=== PATIENT | female | born 1965 | race Hispanic/Latino ===

== ENCOUNTER 2024-11-21 02:55 | Inpatient (IN) | payer SELFPAY ==
[2024-11-21] VITALS (17 sets, daily range): BP systolic 152–185; BP diastolic 57–91; PULSE 90–116; RESP 16–19; TEMP 97.9–98.3; O2SAT 97–99
[~2024-11-21] VITALS: Ht 154.9 cm; Wt 54.4 kg
[2024-11-21] MEDS: hydrALAZine 20MG/ML VIAL IV ONE (03:33)
[2024-11-21 03:37] LABS: BASOPHILS # (AUTO) 0.05 K/uL (0.00-0.20); BASOPHILS % (AUTO) 0.6 % (0.0-5.0); EOSINOPHILS # (AUTO) 0.04 K/uL (0.00-0.70); EOSINOPHILS % (AUTO) 0.5 % (0.0-8.0); HEMATOCRIT 36.3 % (36-48); IMMATURE GRANULOCYTE ABSOLUTE 0.03 K/uL (0-1); LYMPHOCYTES # (AUTO) 0.9 K/uL (1.0-4.8); LYMPHOCYTES % (AUTO) 11.5 % (21.0-51.0); MEAN CORPUSCULAR HEMOGLOBIN 29.2 pg (27.0-33.0); MEAN CORPUSCULAR HGB CONC 33.3 g/dL (32.0-36.0); MEAN CORPUSCULAR VOLUME 87.7 fL (79-99); MONOCYTES # (AUTO) 0.7 K/uL (0.1-1.0); NEUTROPHILS # (AUTO) 6.4 K/uL (1.8-7.7); PLATELET COUNT (AUTO) 284 K/uL (130-400); RED BLOOD CELL COUNT(AUTO) 4.14 MIL/uL (4.00-5.50); RED CELL DISTRIBUTION WIDTH 16.4 % (11.0-15.5); WHITE BLOOD COUNT (AUTO) 8.1 K/uL (4.8-10.8)
[2024-11-21 03:50] LABS: INR 1.03 (0.85-1.15); PROTHROMBIN TIME 10.9 SEC (9.6-11.6)
[2024-11-21 03:51] LABS: PARTIAL THROMBOPLASTIN TIME 32.3 SEC (26.3-35.5)
--- NOTE | 2024-11-21 03:59 | ERN ---
ED Note History of Present Illness Stated Complaint: NEEDS DIALYSIS, SHORTNESS OF BREATH Chief Complaint: Shortness of Breath Time Seen by MD: 03:00 Dictation: This is a 59-year-old female who presented to the emergency room via EMS with severe respiratory distress. Patient has end-stage renal disease and has been on hemodialysis for the past 1 year and apparently goes to [facility] for hemodialysis once a week due to being undocumented She indicated that her hemodialysis access has been changed a month ago. She missed hemodialysis this week due to mother's day and stayed back with family members here went into severe respiratory distress and alerted EMS. No cough sputum or hemoptysis no fevers chills or rigors. Temperature 98� pulse 95 respirations 16 blood pressure 180/90 initially which went up to 210/70 and pulse oximetry 97% on 5 L O2 via nasal cannula Her chronic medical problems include hypertension and end-stage renal disease on hemodialysis Allergies: Coded Allergies: No Known Allergies (Unverified Allergy, Unknown, 11/21/24) Past Medical History Past Medical History: Hypertension, Renal Disese Additional Past Medical Hx: On hemodialysis for 1 year Surgical History: None Family History: Negative Social History: Negative History: Not Applicable RN Note Reviewed/Agreed w/PFSH: Yes Review of System Dictation Constitutional: Negative for fever,chills, and weight loss Eyes: Negative for injury, pain,redness, and discharge ENT: Negative for injury,pain or swelling Cardiovascular: Negative for chest pain, palpitations, and edema Respiratory: Positive for shortness of breath, denied cough, and wheezing, Abdomen/GI: Negative for abdominal pain, nausea, vomiting, diarrhea, and constipation Back: Negative for injury and pain : Negative for injury, bleeding and discharge MS/Extremity: Negative for injury and deformity Skin: Negative for rash, and discoloration Neuro: Negative for headache, weakness, numbness, tingling, and seizure Psych: Negative for suicide ideation, homicidal ideation, and hallucinations Initial Vital Sign VS Vital Signs Date Time Temp Pulse Resp B/P (MAP) Pulse Ox O2 Delivery O2 Flow Rate FiO2 11/21/24 02:56 98.1 95 16 180/90 99 Room Air 0 11/21/24 03:10 36 Physical Exam Dictation General: awake, alert, mildly dyspneic on 5 L O2 via nasal cannula Head/Face: Normocephalic, atraumatic Eyes: PERRL, EOMI, vision at baseline ENT: oral cavity clear, TMs clear, no signs of infection Neck: Trachea midline, supple, no nuchal rigidity Cardiovascular: RRR, normal S1/S2, No MRGs, no JVD right-sided hemodialysis catheter in place in the chest Respiratory: Bilateral coarse crackles Abdomen: Soft, non-tender, non-distended, normal bowel sounds, no guarding or rebound. Skin: Warm, dry, normal turgor, no rash MS/Extremity: Pulses equal, no cyanosis, neurovascular intact, FROM Neuro: COAx4, GCS 15, strength 5/5, CN 2-12 intact, normal cerebellar exam, normal gait, Psych: Normal behavior, mood, and affect normal Extremities-trace edema without any palpable cords, Homans sign is negative Results (Laboratory/Radiology) Laboratory/Radiology Laboratory Tests Test 11/21/24 03:18 11/21/24 03:25 Whole Blood Glucose 80 MG/DL (70-110) White Blood Count 8.1 K/uL (4.8-10.8) Red Blood Count 4.14 MIL/uL (4.00-5.50) Hemoglobin 12.1 g/dL (12.0-16.0) Hematocrit 36.3 % (36-48) Mean Corpuscular Volume 87.7 fL (79-99) Mean Corpuscular Hemoglobin 29.2 pg (27.0-33.0) Mean Corpuscular Hemoglobin Concent 33.3 g/dL (32.0-36.0) Red Cell Distribution Width 16.4 % (11.0-15.5) H Platelet Count 284 K/uL (130-400) Mean Platelet Volume 11.5 fL (7.5-10.5) H Immature Granulocyte % (Auto) 0.4 % (0-1) Neutrophils (%) (Auto) 79.0 % (40.0-77.0) H Lymphocytes (%) (Auto) 11.5 % (21.0-51.0) L Monocytes (%) (Auto) 8.0 % (3.0-13.0) Eosinophils (%) (Auto) 0.5 % (0.0-8.0) Basophils (%) (Auto) 0.6 % (0.0-5.0) Neutrophils # (Auto) 6.4 K/uL (1.8-7.7) Lymphocytes # (Auto) 0.9 K/uL (1.0-4.8) L Monocytes # (Auto) 0.7 K/uL (0.1-1.0) Eosinophils # (Auto) 0.04 K/uL (0.00-0.70) Basophils # (Auto) 0.05 K/uL (0.00-0.20) Absolute Immature Granulocyte (auto 0.03 K/uL (0-1) Nucleated Red Blood Cells 0.0 % (0.0-0.19) Prothrombin Time 10.9 SEC (9.6-11.6) Prothromb Time International Ratio 1.03 (0.85-1.15) Activated Partial Thromboplast Time 32.3 SEC (26.3-35.5) Sodium Level 139 mmol/L (136-145) Potassium Level 7.0 mmol/L (3.5-5.1) *H Chloride Level 102 mmol/L (101-111) Carbon Dioxide Level 22 mmol/L (21-32) Blood Urea Nitrogen 109 mg/dL (7-18) *H Creatinine 12.0 mg/dL (0.5-1.0) *H Glomerular Filtration Rate Calc 3 mL/min (>90) Random Glucose 89 mg/dL (70-105) Total Calcium 6.7 mg/dL (8.5-10.1) L Troponin I High Sensitivity 32 ng/L (4-50) Labs Reviewed?: Yes ED Course ED Course Orders Procedure Category Date Status Time Cbc With Differential LAB 11/21/24 Complete 03:09 Basic Metabolic Panel LAB 11/21/24 Complete 03:09 Pt And Ptt LAB 11/21/24 Complete 03:09 Troponin I High LAB 11/21/24 Complete Sensitivity 03:09 Chest 1vw RAD 11/21/24 Taken 03:09 12 Lead Ekg Tracing- EKG 11/21/24 Logged Technical 03:09 Hydralazine 20mg Inj PHA 11/21/24 Complete (Apresoline 20mg In 03:30 Calcium Gluc 1gm PHA 11/21/24 In Process (Calcium Gluc 1gm 04:00 Insulin Regular, PHA 11/21/24 Complete Human 3ml (Humulin R 04:00 Albuterol 0.083% PHA 11/21/24 In Process 2.5mg/3ml (Proventil 04:00 Dextrose 50%-Water PHA 11/21/24 Complete (D50w) 04:00 Admit Orders ADM 11/21/24 Transmitted 04:14 In-Patient Dialysis DIAL 11/21/24 Transmitted Treatment 04:17 [place] [facility] [place] 11/21/24 Transmitted Dialysis 04:17 Edm Admit Bridge Order ADM 11/21/24 Verified 04:22 Current Medications Medications (Trade) Dose Ordered Sig/Luis Route PRN Reason Start Time Stop Time Status Last Admin Dose Admin Albuterol Sulfate (Proventil 0.083% 2.5mg/3ml) 10 mg ONCE IH 11/21/24 04:00 12/21/24 03:59 11/21/24 04:11 Calcium Gluconate 1 gm/Sodium Chloride 110 ml @ 110 mls/hr ONCE ONCE IV 11/21/24 04:00 11/21/24 04:59 11/21/24 04:08 Dextrose (D50w) 50 ml ONCE ONCE IV 11/21/24 04:00 11/21/24 04:01 DC 11/21/24 04:08 Hydralazine HCl (APRESOLine 20MG INJ) 20 mg ONCE ONCE IV 11/21/24 03:30 11/21/24 03:31 DC 11/21/24 03:33 Insulin Human Regular (humuLIN R 100 UNIT/ML 3ML) 5 unit ONCE ONCE IV 11/21/24 04:00 11/21/24 04:01 DC 11/21/24 04:08 Vital Signs Date Time Temp Pulse Resp B/P (MAP) Pulse Ox O2 Delivery O2 Flow Rate FiO2 11/21/24 04:16 99 24 178/79 98 Nasal Cannula* 5 40 11/21/24 04:11 90 19 Nasal Cannula 4.0 36 11/21/24 04:11 90 19 11/21/24 03:47 98.4 93 16 191/89 96 Nasal Cannula* 5 40 11/21/24 03:10 99.0 90 22 216/119 94 Nasal Cannula* 4 36 11/21/24 02:56 98.1 95 16 180/90 99 Room Air 0 We will perform diagnostic labs, advanced imaging and administer medications according to the patient's complaint. Once the results are available, will revi ew and personally interpreted the labs to rule out any acute life-threatening emergency the trach require immediate intervention and treatment. I will then re-evaluate the patient after treatment and diagnostic exams have return to determine whether the patient requires any further testing, can safely be discharged home or need further admission to hospital for additional treatment and evaluation. Hydralazine for blood pressure control Lab called with a potassium of 7.0. Hyperkalemia protocol was initiated with calcium gluconate, albuterol, insulin plus D50. 3:47 a.m. blood pressure improved 191/89. Labs still pending 4:[address] 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 He spoke to the nurse and gave dialysis orders Remaining labs reviewed CBC is with a normal limits BNP 7 showed a BUN and creatinine of 109/12 4:20 a.m. patient will be admitted to the hospital for dialysis and further volume management Patient accepted by Ata Hopkins, mid-level provider for the hospitalist group for further management. Medical Decision Making MDM MDM: Differential diagnosis: Pulmonary edema due to hypertensive emergency, volume overload due to missing dialysis, pneumonia Rationale: Tests considered and ordered secondary to shared decision making include: labs, ECG and radiology Previous outside records reviewed: Old ER visits. Risk of complication and/or morbidity or mortality of patient management: None Medications-Per medication reconciliation Need for hospitalization: Patient does meet criteria for hospitalization. Need for emergency major/minor surgery: No There are no social concerns with this patient. Prescription drug management Prescriptions will include symptomatic care Patient's prior external medical records from other ER visits were reviewed by me as indicated. Prior testing and results from previous visits were reviewed. Prior tests were taken into account with medical decision making and resource utilization, independent historian/historians were used to obtain complete medical history. I independently interpreted the test that were performed, results were reviewed by me and considered findings on radiology if ordered. Medical management and examination interpretation discussions were had by me with other qualified healthcare professionals as indicated for the patient's care. Problem List Problem List: (1) Hypertensive emergency (2) Acute respiratory failure with hypoxia (3) Acute pulmonary edema (4) End-stage renal disease on hemodialysis DX & DISP Disposition: Inpatient Departure Impression: Primary Impression: Hypertensive emergency Additional Impressions: Acute respiratory failure with hypoxia, Acute pulmonary edema, End-stage renal disease on hemodialysis Condition: Stable Additional Instructions: Patient was informed of all the diagnostic labs and procedures conducted in the emergency room today and demonstrated understanding of the results. I personally reviewed and interpreted all the diagnostic exams performed in the ER today. The patient will be admitted to the hospital for further treatment and evaluation. Disposition-admit to facility Condition-stable/guarded Course-uncertain at this time Pain status-decreased Assessment-exam unchanged Admission Certification- I certify that the patients status is appropriate and is based on my best clinical judgment and the patient's condition as documented in the medical records Referrals: SELF,REFERRAL (PCP) ZOEY LEZAMA MD November 21, 2024 03:59
[2024-11-21] MEDS: INSULIN humuLIN R 100 UNIT/ML 3ML IV ONE (04:08)
[2024-11-21] MEDS: CALCIUM GLUC 1GM 1 GM in 0.9%NACL 100ML 100 ML IV ONE (04:08)
[2024-11-21] MEDS: DEXTROSE 50%-WATER 50 ML DISP.SYRIN IV ONE (04:08)
[2024-11-21] MEDS: ALBUTEROL 0.083% 2.5 MG/3 ML INH IH SCH (04:11)
--- NOTE | 2024-11-21 04:15 | HP ---
History of Present Illness Reason for Visit: sob Past Medical History ADDITIONAL PAST MEDICAL HISTORY: [] SOCIAL HISTORY: [] SURGICAL HISTORY: [] Review of Systems Allergies: Coded Allergies: No Known Allergies (Unverified Allergy, Unknown, 11/21/24) Exam Vital Signs Vital Signs Date Time Temp Pulse Resp B/P (MAP) Pulse Ox O2 Delivery O2 Flow Rate FiO2 11/21/24 04:11 90 19 Nasal Cannula 4.0 36 11/21/24 03:47 98.4 191/89 96 Assessment/Plan ASSESSMENT: [] PLAN: [] PARAMJIT MARC RACING DRIVER November 21, 2024 04:15
--- NOTE | 2024-11-21 05:14 | NUR ---
LALO, HD NURSE AT BEDSIDE AT THIS TIME
--- NOTE | 2024-11-21 06:22 | EKG ---
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
[2024-11-21] MEDS ORDERED: acetaMINOPHEN 325 MG TAB PO PRN (06:30)
--- NOTE | 2024-11-21 06:34 | HP ---
History of Present Illness Reason for Visit: sob History of Present Illness Ms. Ladd is a 59-year-old female that was seen and examined today on 11/23/2024. Patient states that she came to the emergency department with a chief complaint of shortness of breath. Onset was 11/20/2024 at 1:00 p.m.. Location is to lungs. Duration is on and off. Character is described as, difficulty catching my breath. Symptoms are aggravated with physical activity. There was no alleviating factors. Patient reports associated weakness with the 12 falls in the last three months. 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 Dyspnea, Edema, Lt Headedness, Other Gastrointestinal: No: Nausea, Vomiting, Abdominal Pain, Diarrhea, Constipation, Melena, Hematochezia, Other Genitourinary: No Dysuria, No Frequency, No Incontinence, No Hematuria, No Retention, No Other Musculoskeletal: No: other, neck pain, shoulder pain, arm pain, back pain, hand pain, leg pain, foot pain Skin: No Urticaria, No Rash, No Other Neurological: Weakness; No: Numbness, Incoordination, Change in speech, Confusion, Seizures, Other Allergies: Coded Allergies: No Known Allergies (Unverified Allergy, Unknown, 11/21/24) Exam Vital Signs Vital Signs Date Time Temp Pulse Resp B/P (MAP) Pulse Ox O2 Delivery O2 Flow Rate FiO2 11/21/24 05:40 98.2 109 14 156/87 99 Nasal Cannula* 5 40 General Appearance: Alert, Oriented X3, Cooperative, moderate distress HEENT: Atraumatic, EOMI Respiratory: Other (Diminished air entry to bilateral) Cardiovascular: Regular rate (Lower lobes), Regular rhythm, Normal S1, Normal S2 Abdominal: Normal bowel sounds, No tenderness Extremities: No edema, Other (Weakness to bilateral lower extremities) Skin: Other Neuro: Normal speech, Strength at 5/5 X4 ext, Sensation intact, Cranial nerves 3-12 NL Psych/Mental Status: Mental status NL, Mood NL, Thoughts/Content NL Assessment/Plan ASSESSMENT: [ Severe hyperkalemia, POA ESRD on HD, POA Diabetes mellitius type2 Hypertension Weakness and deconditioning] PLAN: [ Admit patient to intensive care unit as inpatient status. Patient received hyperkalemia cocktail, calcium gluconate 1 g, D50 25 g, regular insulin 5 units, albuterol nebulized 10 mg. Repeat potassium at 9:00 a.m.. Consider administering Lokelma patient continues with the elevated potassium Consult Nephrology Service Monitor intake and output every shift Weight patient daily 1500 mL daily fluid restriction Check glucometer a.c. and HS Humulin R sliding scale Check hemoglobin A1c in a.m. One thousand eight hundred ADA diet Consider resuming home medications once they have been reconciled For now, Hydralazine 10 mg IV every 4 hours for systolic blood pressure greater than 160 mmHg Physical therapy for evaluation and treatment GI prophylaxis, Protonix DVT prophylaxis, heparin Critical Care Time: I spent ____ 51 __ minutes of critical care time with the patient. I reviewed lab work, change the patient's medication, and coordinated protocol in the event of tachycardia or desaturation. The patient status remains unchanged ADVANCED CARE PLANNING 1. Which of the following were discussed? Hospice Care - Yes Therapeutic options yes Advance Directives - Yes -patient states she does not have any advance directi ves in place at this time, however her daughter can make decisions for her if she becomes unable. Other discussions - patient wishes to remain a full code at this time 2. Discussed with who? Patient 3. Voluntary nature of this service was explained to the patient? Yes 4. Amount of time spent - ___16_ minutes ___ 5. Reviewed by Physician? (if this service was performed by NPP) Yes This document was generated in part using voice recognition software, occasional wrong word or sound alike substitutions may have occurred due to the inherent limitations of voice recognition software. Read the chart carefully and recognize using context, where the substitutions have occurred. Although every effort was made to edit the content, encyclopedia research worker and typing errors may occur ATTESTATION BY PHYSICIAN I have seen and examined the patient. I reviewed the documentation, medical decision making, and treatment plan as noted by the mid-level provider above. I agree with the findings and plan of care.] PARAMJIT MARC [facility] November 21, 2024 06:34
--- NOTE | 2024-11-21 07:18 | NUR ---
Patient does not remember her home medications. Stated she will ask her daughter.
[2024-11-21] MEDS: INSULIN humuLIN R 100 UNIT/ML 3ML SQ SCH (07:29)
[2024-11-21] MEDS: HEParin 5,000 UNIT VIAL IRRIG ONE (08:29)
[2024-11-21] MEDS: HEParin 5,000 UNIT VIAL SQ SCH (08:30)
--- NOTE | 2024-11-21 08:31 | NUR ---
Spoke to patients daughter, she does not know what medications patient takes at home.
[2024-11-21] MEDS: PANTOPrazole 40 MG TAB DR PO SCH (08:36)
[2024-11-21] MEDS: hydrALAZine 20MG/ML VIAL IV PRN (08:37)
--- NOTE | 2024-11-21 08:37 | NUR ---
dialysis done. 3.2 liters in 3 hours
--- NOTE | 2024-11-21 08:37 | NUR ---
Blood pressure 195/94 mmHg. Gave patient hydralazine 10mg IVP.
--- NOTE | 2024-11-21 09:05 | NUR ---
DR. MOSS SAW PATIENT.
[2024-11-21 09:07] LABS: HEMOGLOBIN A1C 5.4 % (4.0-6.0)
--- NOTE | 2024-11-21 09:12 | NUR ---
CALLED DR. YEH, NOTIFY HIM ABOUT DR. MOSS VISIT AND WHAT WAS SAID. (VIEW ORDERS)
[2024-11-21] MEDS: amLODIPine 5 MG TAB PO ONE (09:14)
[2024-11-21] MEDS: HEParin 5,000 UNIT VIAL IRRIG SCH (09:24)
--- NOTE | 2024-11-21 09:37 | HMCIMG ---
Exam Type: CHEST 1VW Clinical Information: SOB Comparison: None Findings: Right permacath line is noted with tip at the distal superior vena caval level. Ill-defined infiltrates of both lungs are seen consistent with bilateral pneumonia. The heart is large in size. The bony and soft tissue structures show no worrisome pathology. IMPRESSION: Findings consistent with pneumonia. Cardiomegaly. Follow-up is advised.
--- NOTE | 2024-11-21 09:39 | NUR ---
DCP: HOME Pt currently resides with her dgt Vida Hopkins [phone] in their home. Pt denies any insecurities with food, correction, and/or utilities. Pt does not have any DME, home health, or provider services. Pt goes to dialysis in once a week on for 3 hrs. Pt's PCP is in [place] and pt gets any RX in [place]. At [place] pt will go home with dgt and she will assist with transportation. Addendum: 11/21/24 at 0942 by TERRELL SAAVEDRA SS Amended: Links added.
--- NOTE | 2024-11-21 09:40 | NUR ---
CALLED DR. RIVERA TO NOTIFY HIM ABOUT POTASSIUM BEING AT 4.1. WAITING FOR NEW ORDERS.
[2024-11-21] MEDS ORDERED: AMLO-915 PO (09:43)
--- NOTE | 2024-11-21 10:20 | NUR ---
PATIENT GIVEN DISCHARGE PAPERS. 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 DISCONTINUED IV ACCESS. NO SIGNS OF RESPIRATORY DISTRESS O2 SATURATION 99%. VERBALIZED NO PAIN AT THIS MOMENT.
[2024-11-21] MEDS: morPHINE 2 MG SYG IVP PRN (10:28)
[2024-11-21] MEDS: ondanSETRON 4MG INJ IV PRN (10:38)
[2024-11-21] MEDS: IpraTROPium/alBUTERol SULFATE 3 ML SOLUTION IH SCH (11:57)
[2024-11-21] MEDS ORDERED: metoPROLOL tartRATE 50 MG TAB PO ONE (12:30)
--- NOTE | 2024-11-21 13:41 | DS ---
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 initial workup showed sodium 139 potassium 7.0 chloride 102 [id number] BUN 109 creatinine 12.0 BNP was elevated at 2 770. Patient was given IV calcium gluconate IV insulin and dextrose. Nephrology was consulted for dialysis which was done. Repeat potassium post dialysis with 4.0. Patient also had elevated blood pressure which resolved with dialysis. Was given a dose of Norvasc 10 mg which was sent home with. Patient will get dialysis in [place] day after tomorrow. Comptometrist(s): Consultation with Nephrology Dr. Valdivia was obtained who recommended to do dialysis. Procedure(s): None Laboratory Tests Test 11/21/24 03:18 11/21/24 03:25 11/21/24 08:26 Whole Blood Glucose 80 MG/DL (70-110) White Blood Count 8.1 K/uL (4.8-10.8) Red Blood Count 4.14 MIL/uL (4.00-5.50) Hemoglobin 12.1 g/dL (12.0-16.0) Hematocrit 36.3 % (36-48) Mean Corpuscular Volume 87.7 fL (79-99) Mean Corpuscular Hemoglobin 29.2 pg (27.0-33.0) Mean Corpuscular Hemoglobin Concent 33.3 g/dL (32.0-36.0) Red Cell Distribution Width 16.4 % (11.0-15.5) H Platelet Count 284 K/uL (130-400) Mean Platelet Volume 11.5 fL (7.5-10.5) H Immature Granulocyte % (Auto) 0.4 % (0-1) Neutrophils (%) (Auto) 79.0 % (40.0-77.0) H Lymphocytes (%) (Auto) 11.5 % (21.0-51.0) L Monocytes (%) (Auto) 8.0 % (3.0-13.0) Eosinophils (%) (Auto) 0.5 % (0.0-8.0) Basophils (%) (Auto) 0.6 % (0.0-5.0) Neutrophils # (Auto) 6.4 K/uL (1.8-7.7) Lymphocytes # (Auto) 0.9 K/uL (1.0-4.8) L Monocytes # (Auto) 0.7 K/uL (0.1-1.0) Eosinophils # (Auto) 0.04 K/uL (0.00-0.70) Basophils # (Auto) 0.05 K/uL (0.00-0.20) Absolute Immature Granulocyte (auto 0.03 K/uL (0-1) Nucleated Red Blood Cells 0.0 % (0.0-0.19) Prothrombin Time 10.9 SEC (9.6-11.6) Prothrombin Time INR 1.03 (0.85-1.15) Activated Partial Thromboplast Time 32.3 SEC (26.3-35.5) Sodium Level 139 mmol/L (136-145) Potassium Level 7.0 mmol/L (3.5-5.1) *H 4.1 mmol/L (3.5-5.1) Chloride Level 102 mmol/L (101-111) Carbon Dioxide Level 22 mmol/L (21-32) Blood Urea Nitrogen 109 mg/dL (7-18) *H Creatinine 12.0 mg/dL (0.5-1.0) *H Glomerular Filtration Rate Calc 3 mL/min (>90) Random Glucose 89 mg/dL (70-105) Total Calcium 6.7 mg/dL (8.5-10.1) L Troponin I High Sensitivity 32 ng/L (4-50) Hemoglobin A1c 5.4 % (4.0-6.0) Estimated Average Glucose (eAG) 108 mg/dL (70-126) B-Type Natriuretic Peptide 2770 pg/mL (0-100) H Vital Signs Date Time Temp Pulse Resp B/P (MAP) Pulse Ox O2 Delivery O2 Flow Rate FiO2 11/21/24 08:25 97.9 102 16 179/87 100 Nasal Cannula 3.0 11/21/24 07:19 21 Assessment/Plan: ASSESSMENT: Acute hypoxic respiratory failure. POA Hypertensive emergency. POA ESRD on hemodialysis POA Hyperkalemia POA Fluid overload POA Anemia of chronic disease POA Home Medications: Active Scripts Amlodipine Besylate (Norvasc) 10 Mg Tablet, 1 TAB PO DAILY for 30 Days, #30 TAB 0 Refills Prov:MERE RIVERA MD 11/21/24 Time spent arranging discharge: 31-60 minutes MERE RIVERA MD November 21, 2024 13:41
[2024-11-21 16:23] LABS: HEPATITIS B SURFACE ANTIBODY Negative (Reactive); HEPATITIS B SURFACE ANTIGEN Non-Reactive (Nonreactive)
[2024-11-21 19:25] LABS: HEPATITIS B CORE AB TOTAL Non-Reactive (Nonreactive); HEPATITIS C ANTIBODY Non-Reactive (Nonreactive)
[2024-11-21] MEDS ORDERED: metoPROLOL tartRATE 50 MG TAB PO SCH (21:00)
--- NOTE | 2024-11-22 03:17 | CONS ---
REASON FOR CONSULTATION: Renal failure and hyperkalemia. REFERRING PHYSICIAN: Abhijit Bahena MD HISTORY OF PRESENT ILLNESS: This is a 59-year-old female with history of diabetes mellitus and hypertension. She has a history of end-stage renal disease, on dialysis. The patient normally receives her dialysis in [facility]. The patient did not receive dialysis on the previous week secondary to traveling to visit her family. She presented to the Emergency Room and found to have significant electrolyte abnormalities including potassium of 7 mL/L and the patient is being seen for urgent dialysis. PAST MEDICAL HISTORY: Diabetes mellitus, hypertension, and ESRD. PAST SURGICAL HISTORY: PermCath. SOCIAL HISTORY: She lives independently. There is no tobacco use. FAMILY HISTORY: No renal disease in the family. ALLERGIES: No allergies. MEDICATIONS: All noted. REVIEW OF SYSTEMS: CONSTITUTIONAL: She is feeling weak and tired. HEENT: No change in vision. No change in hearing. No nasal discharge. No sore throat. CARDIOVASCULAR: There is no current chest pain or palpitations. PULMONARY: Complains of shortness of breath. GASTROINTESTINAL: The patient is tolerating a diet. MUSCULOSKELETAL: Complaints of weakness. NEUROLOGIC: No history of seizures or focal deficit. PSYCHIATRIC: No history of hallucination or psychosis. ENDOCRINE: Diabetes mellitus. No history of thyroid disease. PHYSICAL EXAMINATION: VITAL SIGNS: Blood pressure is 139/87, pulse in the 100s, afebrile. GENERAL: She is a chronically ill female, lying in bed on the medical floor. HEENT: Head is atraumatic. Pupils are equal, roving to light. Oropharynx is without exudate. Nares clear. NECK: There is no JVP. There is no thyromegaly. No masses. CARDIOVASCULAR: Regular. There is no S3 or S4 gallop. LUNGS: Coarse with equal thoracic movement. ABDOMEN: Soft, nondistended, nontender. EXTREMITIES: Reveal no clubbing, no cyanosis. NEUROLOGICAL: She is awake. She is alert. She is oriented. SKIN: Reveals no rashes or nodules. BACK: There is no CVA tenderness. No back deformities. LABORATORY DATA: Sodium 129, potassium 7, BUN 109, creatinine 12. BNP is 2700. Hemoglobin 12, hematocrit 36. Chest x-ray consistent with pulmonary vascular congestion. IMPRESSION: * Hyperkalemia. * Respiratory failure with pulmonary vascular congestion. * Diabetes mellitus. * Hypertension. * End-stage renal disease. PLAN: The patient presents to the hospital with significant hyperkalemia. The patient will receive urgent dialysis on the day of this consultation. The patient will continue dialysis 3 times per week while in the hospital. The patient is highly encouraged upon discharge to follow up at her dialysis unit. The patient will be started on metoprolol and amlodipine for the hypertension. We will continue to follow closely. All labs can be repeated in the a.m. The patient and family at the bedside and multiple questions were all answered. TID: [id number] RECEIPT: [id number]
[2024-11-22] MEDS ORDERED: amLODIPine 5 MG TAB PO SCH (09:00)
== END 2024-11-21 10:20 | disposition home or self-care (01) | DRG 640 ==
LOC: EDH 02:55 → EDHIP 02:56
PROVIDERS: ADMIT Internal Medicine; ATTEND Internal Medicine
PROC: 5A1D70Z Performance of Urinary Filtration, Intermittent, Less than 6 Hours Per Day (ICD-10-PCS; principal; 2024-11-21)
DX: E87.70 Fluid overload, unspecified (principal); J81.0 Acute pulmonary edema; J96.01 Acute respiratory failure with hypoxia; N18.6 End stage renal disease; I12.0 Hypertensive chronic kidney disease with stage 5 chronic kidney disease or end stage renal disease; I16.1 Hypertensive emergency; D63.1 Anemia in chronic kidney disease; E11.22 Type 2 diabetes mellitus with diabetic chronic kidney disease; E87.5 Hyperkalemia; Z51.5 Encounter for palliative care; Z79.4 Long term (current) use of insulin; Z99.2 Dependence on renal dialysis
CPT/HCPCS: 36415; 71045; 80048; 82948; 83036; 83880; 84132; 84484; 85025; 85610; 85730; 86704; 86706; 86803; 87340; 90935; 93005; 94640; 94664; 99285; G0378; J0360; J0612; J1644; J1815; J2270; J2405; J7070

== ENCOUNTER 2025-03-05 20:19 | Inpatient (IN) | payer SELFPAY ==
[~2025-03-05] VITALS: Ht 152.4 cm; Wt 54.8 kg
[2025-03-05] VITALS (16 sets, daily range): BP systolic 122–189; BP diastolic 55–98; PULSE 87–103; RESP 16–37; TEMP 98; O2SAT 97–98
[~2025-03-05 20:19] MED LIST: AMLO-915 PO
[2025-03-05] MEDS: furoSEMIDE 100MG VIAL 10 MG/ML VIAL ONE (20:32)
[2025-03-05] MEDS: furoSEMIDE 100MG VIAL 10 MG/ML VIAL IVP SCH ×2 (20:35→20:39)
--- NOTE | 2025-03-05 20:37 | ERN ---
ED Note History of Present Illness Stated Complaint: SOB Chief Complaint: Shortness of Breath Time Seen by MD: 20:22 Dictation: This is a 59-year-old female who presented to the emergency room via EMS with severe respiratory distress. Patient has end-stage renal disease and has been on hemodialysis for the past 1 year and apparently goes to [facility] for hemodialysis once a week due to being undocumented, She indicated that her hemodialysis access has been changed a a few months ago. She missed hemodialysis and went into severe respiratory distress and activated EMS. No cough sputum or hemoptysis no fevers chills or rigors. Temperature 98 pulse 101 respirations 26 blood pressure 261/134 pulse oximetry 97% on 15 L O2 via nasal cannula Her chronic medical problems include hypertension and end-stage renal disease on hemodialysis Allergies: Coded Allergies: No Known Allergies (Unverified Allergy, Unknown, 11/21/24) Home Meds Active Scripts Amlodipine Besylate (Norvasc) 10 Mg Tablet, 1 TAB PO DAILY for 30 Days, #30 TAB 0 Refills Prov:MERE RIVERA MD 11/21/24 Past Medical History Past Medical History: Hypertension, Renal Disese Additional Past Medical Hx: On hemodialysis for 1 year Surgical History: None Family History: Negative Social History: Negative History: Not Applicable RN Note Reviewed/Agreed w/PFSH: Yes Review of System Dictation Constitutional: Negative for fever,chills, and weight loss Eyes: Negative for injury, pain,redness, and discharge ENT: Negative for injury,pain or swelling Cardiovascular: Negative for chest pain, palpitations, and edema Respiratory: Positive for shortness of breath, did not cough, and wheezing, Abdomen/GI: Negative for abdominal pain, nausea, vomiting, diarrhea, and constipation Back: Negative for injury and pain : Negative for injury, bleeding and discharge MS/Extremity: Negative for injury and deformity Skin: Negative for rash, and discoloration Neuro: Negative for headache, weakness, numbness, tingling, and seizure Psych: Negative for suicide ideation, homicidal ideation, and hallucinations Initial Vital Sign VS Vital Signs Date Time Temp Pulse Resp B/P (MAP) Pulse Ox O2 Delivery O2 Flow Rate FiO2 03/05/25 20:21 101 26 261/134 100 Non-Rebreather+ 15 100 03/05/25 20:23 97.9 Physical Exam Dictation General: awake, alert, moderate respiratory distress very tachypneic, looks very sick Head/Face: Normocephalic, atraumatic Eyes: PERRL, EOMI, vision at baseline ENT: oral cavity clear, TMs clear, no signs of infection Neck: Trachea midline, supple, no nuchal rigidity Cardiovascular: RRR, normal S1/S2, No MRGs, no JVD Respiratory: Moderate respiratory distress very tachypneic decreased breath sounds bilaterally right more than left with crackles Abdomen: Soft, non-tender, non-distended, normal bowel sounds, no guarding or rebound. Skin: Warm, dry, normal turgor, no rash MS/Extremity: Pulses equal, no cyanosis, neurovascular intact, FROM Neuro: COAx4, GCS 15, strength 5/5, CN 2-12 intact, normal cerebellar exam, normal gait, Psych: Normal behavior, mood, and affect normal Extremities-trace edema without any palpable cords, Homans sign is negative Results (Laboratory/Radiology) Laboratory/Radiology Laboratory Tests Test 03/05/25 20:33 03/05/25 20:37 03/05/25 22:00 White Blood Count 13.1 K/uL (4.8-10.8) H Red Blood Count 3.69 MIL/uL (4.00-5.50) L Hemoglobin 10.9 g/dL (12.0-16.0) L Hematocrit 33.2 % (36-48) L Mean Corpuscular Volume 90.0 fL (79-99) Mean Corpuscular Hemoglobin 29.5 pg (27.0-33.0) Mean Corpuscular Hemoglobin Concent 32.8 g/dL (32.0-36.0) Red Cell Distribution Width 17.6 % (11.0-15.5) H Platelet Count 255 K/uL (130-400) Mean Platelet Volume 12.0 fL (7.5-10.5) H Immature Granulocyte % (Auto) 0.3 % (0-1) Neutrophils (%) (Auto) 83.7 % (40.0-77.0) H Lymphocytes (%) (Auto) 7.9 % (21.0-51.0) L Monocytes (%) (Auto) 6.8 % (3.0-13.0) Eosinophils (%) (Auto) 0.9 % (0.0-8.0) Basophils (%) (Auto) 0.4 % (0.0-5.0) Neutrophils # (Auto) 11.0 K/uL (1.8-7.7) H Lymphocytes # (Auto) 1.0 K/uL (1.0-4.8) Monocytes # (Auto) 0.9 K/uL (0.1-1.0) Eosinophils # (Auto) 0.12 K/uL (0.00-0.70) Basophils # (Auto) 0.05 K/uL (0.00-0.20) Absolute Immature Granulocyte (auto 0.04 K/uL (0-1) Nucleated Red Blood Cells 0.0 % (0.0-0.19) White Cell Morphology Comment See comments Sodium Level 138 mmol/L (136-145) Potassium Level 6.5 mmol/L (3.5-5.1) *H Chloride Level 93 mmol/L (101-111) L Carbon Dioxide Level 32 mmol/L (21-32) Blood Urea Nitrogen 91 mg/dL (7-18) *H Creatinine 12.1 mg/dL (0.5-1.0) *H Glomerular Filtration Rate Calc 3 mL/min (>90) Random Glucose 159 mg/dL (70-105) H Total Calcium 7.6 mg/dL (8.5-10.1) L Total Creatine Kinase 274 U/L (21-232) H Troponin I High Sensitivity 83 ng/L (4-50) *H B-Type Natriuretic Peptide > 5000 pg/mL (0-100) H Procalcitonin 0.13 ng/mL (0.05-0.5) Blood Gas Specimen Type Arterial Arterial Blood pH 7.425 (7.350-7.450) Arterial Blood Partial Pressure CO2 42 mmHg (32-45) Arterial Blood Partial Pressure O2 79.3 mmHg (83.0-108.0) L Arterial Blood HCO3 26.6 mmol/L (21.0-28.0) Arterial Blood Oxygen Saturation 94.2 % (94.0-98.0) Arterial Blood Base Excess 2.0 mmol/L (-2.0-3.0) Hemoglobin (Blood Gas) 12.4 g/dL (12.0-16.0) Sodium (Blood Gas) 139 MMOL/L (136-145) Bedside Potassium (Blood Gas) 6.1 MMOL/L (3.4-4.5) *H Bedside Chloride (Blood Gas) 95 MMOL/L (98-107) L Bedside Glucose (Blood Gas) 159 MG/DL (65-95) H Bedside Ionized Calcium (Blood Gas) 0.88 MMOL/L (1.15-1.33) L Bedside Lactic Acid (Blood Gas) 1.73 MMOL/L (0.36-0.75) H Blood Gas Temperature 37.0 CELSIUS (35.5-37.0) Blood Gas Flow-by 15.00 L/min (0.00-15.00) Blood Gas Vent Mode NRBM (ROOM AIR) FiO2 100.0 % Blood Gas Specimen Comment RB Lactic Acid Level 2.2 mmol/L (0.8-2.5) Labs Reviewed?: Yes EKG Comment: 12 lead EKG done on 03/05/2025 at 8:29 p.m. showed a heart rate of 101, [place] interval 144, QRS 75, QT/QTC 387/503 Impression sinus tachycardia nonspecific STT wave changes noted. Slightly prolonged QT. EKG rhythm strip shows a normal sinus rhythm with nonspecific ST-T changes. Interpreted by ER MD Dr. Phillips X-RAY Comment: REASON: CHEST PAIN ORDERING PHYSICIAN: ZOEY PHILLIPS MD PROCEDURE: CXR1VW - CHEST 1VW EXAM: CR Chest, 1 view CLINICAL HISTORY: Chest pain. COMPARISON: Chest radiograph dated 11/21/2024. FINDINGS: Small to moderate pleural effusions with mid to lower zone airspace disease and pulmonary edema bilaterally. Mild cardiomegaly. No pneumothorax. The right-sided dual-lumen catheter tip overlies the right atrium. No acute osseous abnormality. IMPRESSION: Small to moderate pleural effusions with mid to lower zone airspace disease and pulmonary edema bilaterally. Mild cardiomegaly. The right-sided dual-lumen catheter tip overlies the right atrium. Compared to the prior study, there is no significant interval change. /Lovilia DICTATED BY: LIZETTE JAY Jr., MD DATE: 03/05/252236 ELECTRONICALLY SIGNED BY: LIZETTE JAY Jr., MD DATE: 03/05/252236 ED Course ED Course Orders Procedure Category Date Status Time Vital Signs Per CPOE 03/05/25 Transmitted Routine 20:24 Chest 1vw RAD 03/05/25 Resulted 20:24 12 Lead Ekg Tracing- EKG 03/05/25 Logged Technical 20:24 Oxygen By Nc/Pulse Ox CPOE 03/05/25 Transmitted 20:24 Maintain Iv CPOE 03/05/25 Transmitted 20:24 Iv Insertion CPOE 03/05/25 Transmitted 20:24 Cardiac Monitoring CPOE 03/05/25 Transmitted 20:24 Pulse Oximetry With CPOE 03/05/25 Transmitted Vs And Prn 20:24 Cbc With Differential LAB 03/05/25 Complete 20:24 Activity: Br W/Brp CPOE 03/05/25 Transmitted With Assist 20:24 Creatine Kinase, Total LAB 03/05/25 Complete 20:24 Troponin I High LAB 03/05/25 Complete Sensitivity 20:24 Basic Metabolic Panel LAB 03/05/25 Complete 20:24 Hydralazine 20mg Inj PHA 03/05/25 Complete (Apresoline 20mg In 20:30 Hydralazine 20mg Inj PHA 03/05/25 Complete (Apresoline 20mg In 20:26 12 Lead Ekg Tracing- EKG 03/05/25 Logged Technical 20:27 Furosemide 100mg Vial PHA 03/05/25 Complete (Lasix 100mg Vial) 20:30 Furosemide 100mg Vial PHA 03/05/25 Complete (Lasix 100mg Vial) 20:30 Furosemide 100mg Vial PHA 03/05/25 In Process (Lasix 100mg Vial) 21:00 Bipap Settings RT 03/05/25 Transmitted 20:32 Arterial Blood Gas + RT 03/05/25 Transmitted 20:33 Nicardipine 25mg Inj PHA 03/05/25 In Process (Cardene 25mg Inj) 21:00 Nicardipine 25mg Inj PHA 03/05/25 Complete (Cardene 25mg Inj) 20:36 Arterial Blood Gas LAB 03/05/25 Complete Arterial + 20:37 B-Type Natriuretic LAB 03/05/25 Complete Peptide 20:39 Admit Orders ADM 03/05/25 Transmitted 20:46 Albuterol 0.083% PHA 03/05/25 Complete 2.5mg/3ml (Proventil 21:00 Dextrose 50%-Water PHA 03/05/25 Complete (D50w) 21:00 Insulin Regular, PHA 03/05/25 Complete Human 3ml (Humulin R 21:00 Cacl 1gm Syg (Calcium PHA 03/05/25 Complete Chloride 1g Syg) 21:00 Keep Patient Npo CPOE 03/05/25 Transmitted 21:00 Nothing By Mouth DIET 03/06/25 Transmitted Breakfast Basic Metabolic Panel LAB 03/06/25 In Process 04:00 Cbc With Differential LAB 03/06/25 In Process 04:00 Magnesium LAB 03/06/25 In Process 04:00 Phosphorus LAB 03/06/25 In Process 04:00 Urinalysis Profile LAB 03/05/25 In Process 21:00 Activity: Ad Bharati CPOE 03/05/25 Transmitted 21:00 Apply Knee High Teds CPOE 03/05/25 Transmitted 21:00 Apply Scds CPOE 03/05/25 Transmitted 21:00 Condition: CPOE 03/05/25 Transmitted 21:00 Daily Fluid Intake CPOE 03/05/25 Transmitted Restriction 21:00 Daily Weights CPOE 03/05/25 Transmitted 21:00 I&O Q Shift CPOE 03/05/25 Transmitted 21:00 Npo Except For Meds CPOE 03/05/25 Transmitted 21:00 Nurse To Enter Home CPOE 03/05/25 Transmitted Medication 21:00 Oxygen By Nc/Pulse Ox CPOE 03/05/25 Transmitted 21:00 Telemetry Monitoring CPOE 03/05/25 Transmitted 21:00 Vital Signs(Adult CPOE 03/05/25 Transmitted Hospitalist) 21:00 Acetaminophen 325 Tab PHA 03/05/25 In Process (Tylenol 325mg Tab 21:00 Heparin 5,000 Unit PHA 03/05/25 In Process Vial (Heparin 5,000 U 21:00 Hydralazine 20mg Inj PHA 03/05/25 In Process (Apresoline 20mg In 21:00 Lactulose 20 Gm/30 Ml PHA 03/05/25 In Process Udcup (Constulose 21:00 Ondansetron 4mg Inj PHA 03/05/25 In Process (Zofran 4mg Inj) 21:00 Blood Cult NEY 03/05/25 In Process 21:05 Lactic Acid LAB 03/05/25 Complete 21:05 Procalcitonin LAB 03/05/25 Complete 21:05 Zosyn 3.375gm+Ns 50ml PHA 03/05/25 In Process (Zosyn 3.375gm+Ns 21:30 Morphine 2mg Syg PHA 03/05/25 In Process (Morphine 2mg Syg) 21:30 Methylprednisolone PHA 03/05/25 Complete Succ 125mg (Solu-Medr 21:30 Methylprednisolone PHA 03/06/25 In Process Succ 40mg (Solu-Medro 03:30 Ipratropium/Albuterol PHA 03/06/25 In Process Neb (Duoneb) 00:00 Guaifenesin Sug-Swapnil PHA 03/05/25 In Process 100 Mg/5ml (Robituss 21:30 Calcium Gluc 1gm PHA 03/05/25 Complete (Calcium Gluc 1gm 21:15 Nephrology Consult CONPHYSVC 03/05/25 Transmitted 21:15 Critcal Care Consult CONPHYSVC 03/05/25 Transmitted 21:14 Pantoprazole 40mg Inj PHA 03/06/25 In Process (Protonix 40mg Inj 09:00 Nephrology Consult CONPHYSVC 03/05/25 Transmitted 21:20 Insulin Regular, PHA 03/05/25 Complete Human 3ml (Humulin R 21:30 Hepatitis B Core Total LAB 03/05/25 In Process 22:40 Hepatitis B Surface LAB 03/05/25 In Process Antibody 22:40 Consult [facility] [place] 03/05/25 Transmitted Dialysis 22:40 In-Patient Dialysis DIAL 03/05/25 Transmitted Treatment 22:40 Obtain Consent For CPOE 03/05/25 Transmitted Hemodialysi 22:40 Hepatitis B Surface LAB 03/05/25 In Process Antigen 22:40 Dialysis Prescription DIAL 03/05/25 Transmitted 22:40 0.9% Nacl 250ml (Ns PHA 03/05/25 In Process 250ml) 23:00 0.9%Nacl 1000ml (Ns PHA 03/05/25 In Process 1000ml) 23:00 Hemodialysis Nurings DIAL 03/05/25 Transmitted Orders 22:40 Heparin 5,000 Unit PHA 03/05/25 In Process Vial (Heparin 5,000 U 23:00 Potassium LAB 03/05/25 Logged 23:43 Code Status CODE 03/05/25 Transmitted 23:43 Vital Signs Date Time Temp Pulse Resp B/P (MAP) Pulse Ox O2 Delivery O2 Flow Rate FiO2 03/05/25 23:48 87 21 60 03/05/25 23:47 88 27 03/05/25 22:36 97 189/92 03/05/25 22:35 98 22 189/92 (124) 99 03/05/25 22:11 98 22 178/92 (120) 99 03/05/25 21:56 98 17 185/78 (113) 99 03/05/25 21:41 98 23 175/87 (116) 99 03/05/25 21:19 91 26 03/05/25 21:09 98.1 92 24 160/77 99 Bi-PAP+ 0 60 03/05/25 20:56 94 28 162/71 100 Bi-PAP+ 15 60 03/05/25 20:51 98 22 174/84 100 Bi-PAP+ 15 100 03/05/25 20:46 99 207/99 03/05/25 20:46 100 22 207/99 100 Room Air* 15 100 Bi-PAP+ 03/05/25 20:44 103 37 60 03/05/25 20:36 104 30 243/137 98 Bi-PAP+ 15 100 03/05/25 20:23 97.9 101 26 261/134 93 Nonrebreathing Mask 15.0 03/05/25 20:21 101 26 261/134 100 Non-Rebreather+ 15 100 We will perform diagnostic labs, advanced imaging and administer medications according to the patient's complaint. Once the results are available, will review and personally interpreted the labs to rule out any acute life- threatening emergency the trach require immediate intervention and treatment. I will then re-evaluate the patient after treatment and diagnostic exams have return to determine whether the patient requires any further testing, can safely be discharged home or need further admission to hospital for additional treatment and evaluation. Labs reviewed ABG showed a pH of 7.42 pCO2 41 PO2 of 79 on 100% O2. Lactic acid 1.7 CBC showed a white count of 13.1 hemoglobin 10.9 platelets 255. BNP 7 showed a potassium of 6.5 BUN and creatinine are 19 and 12.1 with a bicarb of 32. First set of troponins are 83 brain natriuretic peptide is more than 5000. Chest x- ray showed bilateral pleural effusions and pulmonary edema. 8:40 p.m. Ata Hopkins from hospitalist group accepted the patient for admission to intensive care unit for respiratory distress. 8:[address] Vega, gravity prospecting operator helper for assistance with emergent hemodialysis. I discussed the patient with him personally he indicated that he would mobilize the dialysis nurse resources. Medical Decision Making MDM Differential diagnosis: Pulmonary edema, pericardial effusion, aspiration p neumonia, pleural effusions Rationale: Tests considered and ordered secondary to shared decision making include: labs, ECG and radiology Previous outside records reviewed: Old ER visits. Risk of complication and/or morbidity or mortality of patient management: None Medications-Per medication reconciliation Need for hospitalization: Patient does meet criteria for hospitalization. Need for emergency major/minor surgery: No There are no social concerns with this patient. Prescription drug management Prescriptions will include symptomatic care Patient's prior external medical records from other ER visits were reviewed by me as indicated. Prior testing and results from previous visits were reviewed. Prior tests were taken into account with medical decision making and resource utilization, independent historian/historians were used to obtain complete medical history. I independently interpreted the test that were performed, results were reviewed by me and considered findings on radiology if ordered. Medical management and examination interpretation discussions were had by me with other qualified healthcare professionals as indicated for the patient's care. Problem List Problem List: (1) Acute respiratory failure with hypoxia (2) Hypertensive emergency (3) End-stage renal disease on hemodialysis (4) Acute pulmonary edema DX & DISP Disposition: Inpatient Decision to Admit Time: 20:33 Departure Impression: Primary Impression: Acute respiratory failure with hypoxia Additional Impressions: Hypertensive emergency, End-stage renal disease on hemodialysis, Acute pulmonary edema Condition: Stable Additional Instructions: Patient was informed of all the diagnostic labs and procedures conducted in the emergency room today and demonstrated understanding of the results. I personally reviewed and interpreted all the diagnostic exams performed in the ER today. The patient will be admitted to the hospital for further treatment and evaluation. Disposition-admit to facility Condition-stable/guarded Course-uncertain at this time Pain status-decreased Assessment-exam unchanged Admission Certification- I certify that the patients status is appropriate and is based on my best clinical judgment and the patient's condition as documented in the medical records Referrals: LAMAR PÉREZ MD (PCP) ZOEY PHILLIPS MD Mar 05, 2025 20:37
[2025-03-05 20:38] LABS: ABG BASE EXCESS 2.0 mmol/L (-2.0-3.0); ABG HCO3 26.6 mmol/L (21.0-28.0); ABG OXYGEN SATURATION 94.2 % (94.0-98.0); ABG PCO2 42 mmHg (32-45); ABG PH 7.425 (7.350-7.450); CARBON MONOXIDE 1.0 % (0.5-1.5); PO2, ARTERIAL BG 79.3 mmHg (83.0-108.0); TEMPERATURE, CELSIUS BG 37.0 CELSIUS (35.5-37.0); VENT MODE, BG NRBM (ROOM AIR)
[2025-03-05 20:40] LABS: IMMATURE GRANULOCYTE ABSOLUTE 0.04 K/uL (0-1); NUCLEATED RED BLOOD CELLS 0.0 % (0.0-0.19); PLATELET COUNT (AUTO) 255 K/uL (130-400); RED BLOOD CELL COUNT(AUTO) 3.69 MIL/uL (4.00-5.50); RED CELL DISTRIBUTION WIDTH 17.6 % (11.0-15.5); WHITE BLOOD COUNT (AUTO) 13.1 K/uL (4.8-10.8)
--- NOTE | 2025-03-05 20:43 | HP ---
History of Present Illness Reason for Visit: sob History of Present Illness Ms. Wilberto Monique is a 60-year-old female that was seen and examined today on 03/05/2025. Patient is unable to provide any past medical history at this time because of severe shortness and breath requiring noninvasive positive pressure support. Fortunately patient is known to me from a previous admission in November of 2024. According to emergency room physician: This is a 59-year-old female who presented to the emergency room via EMS with severe respiratory distress. Patient has end-stage renal disease and has been on hemodialysis for the past 1 year and apparently goes to [facility] for hemodialysis once a week due to being undocumented, She indicated that her hemodialysis access has been changed a a few months ago. She missed hemodialysis and went into severe respiratory distress and activated EMS. No cough sputum or hemoptysis no fevers chills or rigors. Temperature 98 pulse 101 respirations 26 blood pressure 261/134 pulse oximetry 97% on 15 L O2 via nasal cannula Her chronic medical problems include hypertension and end-stage renal disease on hemodialysis Patient was in the emergency room 30 minutes or less when I was paged to admit this patient you only lab work available for me to review is a CBC which shows WBCs of 13.1 and left shift neutrophils 83.7%, results will ABG that appears unremarkable however was taken on 100% FiO2 by non-rebreather making it low yield however ABG did show that potassium is 6.1. 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 Dyspnea, Edema, Lt Headedness, Other Gastrointestinal: No: Nausea, Vomiting, Abdominal Pain, Diarrhea, Constipation, Melena, Hematochezia, Other Genitourinary: No Dysuria, No Frequency, No Incontinence, No Hematuria, No Retention, No Other Musculoskeletal: No: other, neck pain, shoulder pain, arm pain, back pain, hand pain, leg pain, foot pain Skin: No Urticaria, No Rash, No Other Neurological: No: Weakness, Numbness, Incoordination, Change in speech, Confusion, Seizures, Other Allergies: Coded Allergies: No Known Allergies (Unverified Allergy, Unknown, 11/21/24) Scheduled Amlodipine Besylate (Norvasc), 1 TAB PO DAILY Exam Vital Signs Vital Signs Date Time Temp Pulse Resp B/P (MAP) Pulse Ox O2 Delivery O2 Flow Rate FiO2 03/05/25 20:36 104 30 243/137 98 Bi-PAP+ 15 100 03/05/25 20:23 97.9 General Appearance: Alert, Oriented X3, Cooperative, severe distress HEENT: Atraumatic, EOMI Respiratory: Other (Diminished air entry to bilateral lower lobes) Cardiovascular: Regular rate, Regular rhythm, Normal S1, Normal S2 Abdominal: Normal bowel sounds, Soft Extremities: Other (Plus two pitting edema) Skin: No significant lesion Neuro: Strength at 5/5 X4 ext, Sensation intact, Cranial nerves 3-12 NL Psych/Mental Status: Mental status NL, Mood NL, Thoughts/Content NL Assessment/Plan ASSESSMENT: [ Acute hypoxemic respiratory failure, POA Fluid overload, POA Hypertensive emergency, POA Sepsis, POA Leukocytosis, POA hyperkalemia, POA Diabetes mellitius type2 PLAN: [ Admit patient to intensive care unit as inpatient status. Place patient on telemetry monitoring. Patient will be followed by critical care service. Acute hypoxemic respiratory failure: Supplemental oxygen to maintain O2 saturation greater 92%. Continue BiPAP 14/6, FiO2 60%, rate 14 DuoNebs every 6 hours. Solu-Medrol 125 mg IV times 1 Continue Solu-Medrol at 40 mg IV every 8 hours. Keep patient NPO Fluid overload, ESRD on H/D. Patient is being followed by Nephrology Service, Dr. Vega who recommended emergency hemodialysis. Monitor intake and output every shift. Weight patient daily. 1500 mL daily fluid restriction. Avoid nephrotoxic agents when possible. Renally dose all medications when possible, Check BNP, follow up with the results Hypertensive emergency: Continue Cardene drip per emergency room monitors. Sepsis, leukocytosis: Patient presents with tachypnea, tachycardia, leukocytosis meeting clinical sepsis criteria. Decided against IV fluid resuscitation given patient's renal status and current fluid overload. Empiric antibiotic therapy with Zosyn. Check procalcitonin, follow up with the results. Check lactic acid, follow up with the results. Check blood culture, follow up with the results. Check urinalysis, follow up with the results. Follow up with chest x-ray radiology report. Hyperkalemia: patient recieved hyperkalemia cocktail in the emergency department. (albuterol treatment, calcium chloride, insulin 5 units IV) Diabetes mellitus type 2: Check hemoglobin A1c in a.m. Glucometer checks a.c. and HS 1800 ADA diet once patient is a longer NPO Humulin R sliding scale GI prophylaxis, Protonix DVT prophylaxis, heparin Critical Care Time: I spent ___51___ minutes of critical care time with the patient. I reviewed lab work, change the patient's medication, and coordinated protocol in the event of tachycardia or desaturation. The patient status remains unchanged ADVANCED CARE PLANNING 1. Which of the following were discussed? Hospice Care - Yes Therapeutic options yes Advance Directives - Yes -patient states she does not have any advance directives in place at this time, however her daughter can make decisions for her if she becomes unable. Other discussions - patient wishes to remain a full code at this time 2. Discussed with who? Patient 3. Voluntary nature of this service was explained to the patient? Yes 4. Amount of time spent - ___17_ minutes ___ 5. Reviewed by Physician? (if this service was performed by NPP) Yes This document was generated in part using voice recognition software, occasional wrong word or sound alike substitutions may have occurred due to the inherent limitations of voice recognition software. Read the chart carefully and recognize using context, where the substitutions have occurred. Although every effort was made to edit the content, service station cashier and typing errors may occur ATTESTATION BY PHYSICIAN I have seen and examined the patient. I reviewed the documentation, medical decision making, and treatment plan as noted by the mid-level provider above. I agree with the findings and plan of care. ] [facility] Mar 05, 2025 20:43
[2025-03-05 20:55] LABS: CREATINE KINASE, TOTAL 274.0 U/L (21-232); GLOMERULAR FILTR. RATE CALC 3.0 mL/min (>90); GLUCOSE,RANDOM 159.0 mg/dL (70-105); SODIUM SERUM 138.0 mmol/L (136-145)
[2025-03-05 20:59] LABS: CREATININE 12.1 mg/dL (0.5-1.0); UREA NITROGEN, BLOOD 91.0 mg/dL (7-18)
[2025-03-05] MEDS ORDERED: LACTULOSE 20 GM/30 ML UDCUP PO PRN (21:00)
[2025-03-05] MEDS: ALBUTEROL 0.083% 2.5 MG/3 ML INH IH ONE (21:11)
[2025-03-05] MEDS: CALCIUM GLUC 1GM/10ML VIAL ONE (21:17)
[2025-03-05] MEDS: CACL 1GM SYG IVP ONE (21:19)
[2025-03-05] MEDS: DEXTROSE 50%-WATER 50 ML DISP.SYRIN IV ONE (21:19)
--- NOTE | 2025-03-05 21:38 | HMCIMG ---
EXAM: CR Chest, 1 view CLINICAL HISTORY: Chest pain. COMPARISON: Chest radiograph dated 11/21/2024. FINDINGS: Small to moderate pleural effusions with mid to lower zone airspace disease and pulmonary edema bilaterally. Mild cardiomegaly. No pneumothorax. The right-sided dual-lumen catheter tip overlies the right atrium. No acute osseous abnormality. IMPRESSION: Small to moderate pleural effusions with mid to lower zone airspace disease and pulmonary edema bilaterally. Mild cardiomegaly. The right-sided dual-lumen catheter tip overlies the right atrium. Compared to the prior study, there is no significant interval change. /[place]
--- NOTE | 2025-03-05 21:44 | NUR ---
Received report from Raymond MORAN in ER. Patient arrived to ICU at 2144. Family at bedside.
[2025-03-05] MEDS: ZOSYN 3.375GM +NS 50ML IV SCH (22:22)
[2025-03-05] MEDS ORDERED: 0.9% NACL 250ML 250 ML IV SCH (23:00)
--- NOTE | 2025-03-05 23:16 | NUR ---
Spoke to Laureen Pizano informed him of lactic acid level, informed him patient was given hyperkalemia protocol in ER and patient appears to have large t waves. Provider ordered potassium level recheck and to recheck lactic acid after dialysis is completed. Assistant Women'S Tennis Coach Marilu aware of patient needing emergent dialysis. As per ER medical office clerk Kali dialysis nurse is downstairs in ER and will be coming up soon to dialyze patient.
[2025-03-06] VITALS (108 sets, daily range): BP systolic 112–190; BP diastolic 41–97; PULSE 69–109; RESP 9–27; TEMP 97.6–98.7; O2SAT 96–99
--- NOTE | 2025-03-06 00:38 | NUR ---
Dialysis Nurse at bedside about to start dialyzing patient. Paged benchmark to report critical K+ levels.
[2025-03-06] MEDS: 0.9%NACL 1000ML 1,000 ML IV SCH (02:53)
--- NOTE | 2025-03-06 03:00 | NUR ---
Dialysis completed. 2.4 liters removed.
[2025-03-06 03:59] LABS: IMMATURE GRANULOCYTE ABSOLUTE 0.06 K/uL (0-1); NUCLEATED RED BLOOD CELLS 0.0 % (0.0-0.19); PLATELET COUNT (AUTO) 213 K/uL (130-400); RED BLOOD CELL COUNT(AUTO) 3.43 MIL/uL (4.00-5.50); RED CELL DISTRIBUTION WIDTH 17.0 % (11.0-15.5); WHITE BLOOD COUNT (AUTO) 12.7 K/uL (4.8-10.8)
[2025-03-06] MEDS: Solu-medROL 40MG VIAL IVP SCH (04:12)
[2025-03-06 04:22] LABS: CREATININE 7.0 mg/dL (0.5-1.0); GLOMERULAR FILTR. RATE CALC 6.0 mL/min (>90); GLUCOSE,RANDOM 125.0 mg/dL (70-105); PHOSPHORUS 4.5 mg/dL (2.5-4.9); SODIUM SERUM 138.0 mmol/L (136-145); UREA NITROGEN, BLOOD 50.0 mg/dL (7-18)
--- NOTE | 2025-03-06 07:22 | EKG ---
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
--- NOTE | 2025-03-06 09:34 | CONS ---
NEPHROLOGY CONSULTATION REASON FOR CONSULTATION: The patient was brought to the emergency room with increased shortness of breath, respiratory distress, hypertensive emergency, and severe hyperkalemia. HISTORY OF PRESENT ILLNESS: This patient has renal failure, on dialysis. The patient got dialysis in [place], diabetes, hypertension, and hyperlipidemia She does have occasionally dialysis. The patient is now admitted with acute respiratory failure, severe hyperkalemia, severe hypertension. No other associated findings. No other aggravating or relieving factor. PAST MEDICAL HISTORY: Diabetes, hypertension, anemia, and multiple other comorbidities. PAST SURGICAL HISTORY: The patient has PermCath before. SOCIAL HISTORY: No smoking, alcohol, or drug abuse. FAMILY HISTORY: Negative for any kidney cysts or stones. ALLERGIES: None. MEDICATIONS: Reviewed. REVIEW OF SYSTEMS: CONSTITUTIONAL: Has been very weak. No fever, chills, or rigors. HEENT: With no headache. No oral ulcer, sore throat or difficulty swallowing. RESPIRATORY: No cough, expectoration, hemoptysis, or pleuritic pain. CARDIOVASCULAR: Has shortness of breath. Has orthopnea and PND. GASTROINTESTINAL: Negative for nausea, vomiting, or diarrhea reported. GENITOURINARY: Negative for dysuria or hematuria. DERMATOLOGIC: With no rashes, pruritus, or skin lesion. ENDOCRINE: No polyuria, polydipsia, or polyphagia. PSYCHIATRIC: Negative for anxiety, depression, or hallucinations. NEUROLOGIC: No seizures or syncope. PHYSICAL EXAMINATION: GENERAL: Critically ill. VITAL SIGNS: Blood pressure is 207/99, pulse is 100, respiratory rate is 22. HEENT: Head is atraumatic. On BiPAP. NECK: Supple. No masses or bruits. Thyroid is palpable. Neck has no bruits. CHEST: Shows equal thoracic percussion note being resonant in all areas. CARDIAC: Regular rhythm. No rub, no S3 or S4, no parasternal heave. ABDOMEN: No guarding, no tenderness. Bowel sounds are normoactive. No free fluid. EXTREMITIES: With no edema and no cyanosis, clubbing. BACK: No tenderness or back deformities. NEUROLOGIC: This patient is unchanged and nonfocal. No cranial nerve palsies. LABORATORY DATA: Labs have been reviewed. Labs have shown very high potassium 6.5, BUN of 91, creatinine is 10.1. Hemoglobin has been reviewed, up to 10.9. IMAGING STUDIES: X-ray chest reviewed with bilateral infiltrates. Old external records have been reviewed. PROBLEMS: This patient was admitted with, * Acute hypoxic respiratory failure, requiring BiPAP. * Renal failure, acute on chronic. * Hyperkalemia. * Underlying anemia. * Underlying diabetic nephropathy. * Hypertensive emergency. * Noncompliant patient. PLAN: * The patient is being admitted to ICU. * IV Cardene drip can be given for blood pressure. * Urgent dialysis as tolerated. * DVT and GI prophylaxis. * IV Dilaudid or morphine for pain. * Continued followup on urine output, electrolytes, and overall status. * Aggressive diuresis can be given. * I discussed with other team physician. We have reviewed the external record, previous records in detail and continue to monitor closely. Condition is critical and guarded. The patient was seen several times. Total time spent was more than 45 minutes of this critically ill patient. Thank you for this patient. TID: [id number] RECEIPT: [id number]
--- NOTE | 2025-03-06 12:20 | PN ---
[facility] PROGRESS NOTE Date of Service: Mar 06, 2025 Time of Service: 12:19 SUBJECTIVE: The patient is a 60-year-old female with past medical history of diabetes, hypertension in ESRD on hemodialysis since 1 year. The patient has hemodialysis in [place] once every week. The patient came to the ER with complain of severe respiratory distress after missing her dialysis appointment. On arrival the chest x-ray showed small to moderate pleural effusion. Patient's creatinine was 12.7, BUN 91, potassium 6.1, lactic acid 2.2, and procalcitonin 0.13. On arrival, the patient's blood pressure was 261/134, respiratory rate 26 and pulse rate was 101. She was started on 15 L of oxygen maintaining O2 saturation of 100%. Due to her high blood pressure, the patient was started on Cardene drip and Nephrology was consulted and they ordered for emergency dialysis. 03/06/2025: The patient speaks Pashto, therefore, a cone sewer was used to talk with the patient. The patient had dialysis overnight and today her creatinine was 7.0 and potassium dropped down to 3.7. Her blood pressure was 157/72 and she was continued a Cardene drip. Patient takes amlodipine at home which was reconciled and will be started once Cardene drip. Patient's son was concerned about her health and we answered all his questions and guided him regarding dialysis and the importance of having regular dialysis at least 3 times a week and to never miss her dialysis. REVIEW OF SYSTEMS CONSTITUTIONAL: Denies fevers, chills, or night sweats. No unintentional weight loss reported. NEUROLOGICAL: Denies headache, amaurosis fugax, motor weakness, sensory deficit, vertigo/spinning sensation, gait abnormalities, or tremors. ENT: No hearing loss, otalgia, otorrhea, rhinitis, rhinorrhea, hoarseness, or sore throat. CARDIOVASCULAR: Denies any exertional angina, dyspnea on exertion, orthopnea, paroxysmal nocturnal dyspnea, palpitations, life-threatening arrhythmias, claudication. PULMONARY: Denies any shortness of breath, cough, phlegm/sputum, hemoptysis, pleuritic chest pain. SLEEP: Denies morning headaches, daytime somnolence or napping. Denies diffic ulty falling asleep, staying asleep, waking from sleep. Denies knowledge of snoring. GASTROINTESTINAL: Denies any type of dysphagia to either liquids or solids. Denies nausea, vomiting, pyrosis, early satiety, abdominal pain, diarrhea, constipation, or changes in stool consistency or caliber. Denies coffee-ground emesis, hematemesis, hematochezia, or melanotic stools. GENITOURINARY: Denies frequency, urgency, nocturia, hematuria or incontinence (Storage/Irritative symptoms.) Low urinary stream, straining to void, urinary intermittency or hesitancy, splitting of the voiding stream, terminal dribbling. ESRD ENDOCRINOLOGIC: Denies polyuria, polydipsia, polyphagia or heat/cold intolerances. PHYSICAL EXAM GENERAL APPEARANCE: The patient is awake, alert, and oriented, in no acute cardiopulmonary distress. Patient is on oxygen. NEUROLOGICAL: Cranial nerves II-XII grossly intact. Motor is 5/5 in bilateral upper and lower extremities proximal to distal. No sensory deficits. HEENT: Face is symmetric. Pupils are equal and reactive. Extraocular movements are intact. NECK: Supple. No JVD. No thyromegaly. No submental, submandibular, pre- /postauricular, occipital or supraclavicular lymphadenopathy. CHEST: Normal chest expansion. No Telemetry. CARDIOVASCULAR: Regular. S1 and S2 normal. No appreciable rubs, murmurs or gallops. ABDOMEN: Soft, nontender, and nondistended. There is no rebound, voluntary guarding, or rigidity. Vital Signs (last 8hr) Date Time Temp Pulse Resp B/P (MAP) Pulse Ox O2 Delivery O2 Flow Rate FiO2 03/06/25 11:26 98.8 96 16 157/72 96 Nasal Cannula 5.0 03/06/25 11:11 95 16 158/75 97 03/06/25 10:57 90 18 N/Cannula Low lpm 5.0 40 03/06/25 10:57 90 20 03/06/25 10:56 95 14 158/77 97 03/06/25 10:41 91 15 161/74 99 03/06/25 10:26 92 15 167/78 97 03/06/25 10:11 91 12 159/74 97 03/06/25 09:26 92 15 152/61 95 03/06/25 09:11 92 27 157/80 94 Nasal Cannula 5.0 03/06/25 08:56 92 14 153/71 95 03/06/25 08:41 91 9 146/74 92 Nasal Cannula 5.0 03/06/25 08:26 88 16 142/70 96 03/06/25 08:11 87 14 151/63 97 Nasal Cannula 5.0 03/06/25 07:55 91 18 N/Cannula Low lpm 5.0 40 03/06/25 07:54 96 Nasal Cannula* 5 40 03/06/25 07:26 98.6 90 18 145/71 (95) 99 03/06/25 07:11 91 16 154/71 (98) 99 03/06/25 06:41 91 18 151/66 (94) 99 03/06/25 06:26 89 15 159/71 (100) 99 03/06/25 06:21 89 14 60 03/06/25 06:17 89 23 03/06/25 06:12 87 9 154/79 (104) 99 03/06/25 05:26 84 13 150/72 (98) 98 03/06/25 05:15 87 12 149/62 (91) 98 03/06/25 04:56 85 14 146/72 (96) 99 03/06/25 04:46 97.5 03/06/25 04:41 84 11 140/70 (93) 99 03/06/25 04:26 84 17 135/58 (83) 99 LABS: Laboratory: Test 03/06/25 03:20 03/05/25 20:37 03/05/25 20:33 Range/Units White Blood Count 12.7 H 4.8-10.8 K/uL Red Blood Count 3.43 L 4.00-5.50 MIL/uL Hemoglobin 10.0 L 12.0-16.0 g/dL Hematocrit 29.9 L 36-48 % Mean Corpuscular Volume 87.2 79-99 fL Mean Corpuscular Hemoglobin 29.2 27.0-33.0 pg Mean Corpuscular Hemoglobin Concent 33.4 32.0-36.0 g/dL Red Cell Distribution Width 17.0 H 11.0-15.5 % Platelet Count 213 130-400 K/uL Mean Platelet Volume 11.6 H 7.5-10.5 fL Immature Granulocyte % (Auto) 0.5 0-1 % Neutrophils (%) (Auto) 89.3 H 40.0-77.0 % Lymphocytes (%) (Auto) 3.9 L 21.0-51.0 % Monocytes (%) (Auto) 5.9 3.0-13.0 % Eosinophils (%) (Auto) 0.0 0.0-8.0 % Basophils (%) (Auto) 0.4 0.0-5.0 % Neutrophils # (Auto) 11.3 H 1.8-7.7 K/uL Lymphocytes # (Auto) 0.5 L 1.0-4.8 K/uL Monocytes # (Auto) 0.8 0.1-1.0 K/uL Eosinophils # (Auto) 0.00 0.00-0.70 K/uL Basophils # (Auto) 0.05 0.00-0.20 K/uL Absolute Immature Granulocyte (auto 0.06 0-1 K/uL Nucleated Red Blood Cells 0.0 0.0-0.19 % Sodium Level 138 136-145 mmol/L Potassium Level 3.7 3.5-5.1 mmol/L Chloride Level 93 L 101-111 mmol/L Carbon Dioxide Level 28 21-32 mmol/L Blood Urea Nitrogen 50 #H 7-18 mg/dL Creatinine 7.0 H 0.5-1.0 mg/dL Glomerular Filtration Rate Calc 6 >90 mL/min Random Glucose 125 H 70-105 mg/dL Lactic Acid Level 1.7 0.8-2.5 mmol/L Total Calcium 8.6 8.5-10.1 mg/dL Phosphorus Level 4.5 2.5-4.9 mg/dL Magnesium Level 2.70 H 1.80-2.40 mg/dL Blood Gas Specimen Type Arterial Arterial Blood pH 7.425 7.350-7.450 Arterial Blood Partial Pressure CO2 42 32-45 mmHg Arterial Blood Partial Pressure O2 79.3 L 83.0-108.0 mmHg Arterial Blood HCO3 26.6 21.0-28.0 mmol/L Arterial Blood Oxygen Saturation 94.2 94.0-98.0 % Arterial Blood Base Excess 2.0 -2.0-3.0 mmol/L Hemoglobin (Blood Gas) 12.4 12.0-16.0 g/dL Sodium (Blood Gas) 139 136-145 MMOL/L Bedside Potassium (Blood Gas) 6.1 *H 3.4-4.5 MMOL/L Bedside Chloride (Blood Gas) 95 L 98-107 MMOL/L Bedside Glucose (Blood Gas) 159 H 65-95 MG/DL Bedside Ionized Calcium (Blood Gas) 0.88 L 1.15-1.33 MMOL/L Bedside Lactic Acid (Blood Gas) 1.73 H 0.36-0.75 MMOL/L Blood Gas Temperature 37.0 35.5-37.0 CELSIUS Blood Gas Flow-by 15.00 0.00-15.00 L/min Blood Gas Vent Mode NRBM ROOM AIR FiO2 100.0 % Blood Gas Specimen Comment RB White Cell Morphology Comment See comments Total Creatine Kinase 274 H 21-232 U/L Troponin I High Sensitivity 83 *H 4-50 ng/L B-Type Natriuretic Peptide > 5000 H 0-100 pg/mL Procalcitonin 0.13 0.05-0.5 ng/mL Current Medications Medications (Trade) Dose Ordered Sig/Luis Route PRN Reason Start Time Stop Time Status Last Admin Dose Admin Acetaminophen (TYLenol 325MG TAB) 650 mg Q6H PRN PO TEMPERATURE GREATER THAN 101.5 03/05/25 21:00 04/04/25 20:59 Albuterol (DUOneb) 1 UDVIAL [id number] IH 03/06/25 00:00 04/05/25 00:00 03/06/25 10:58 1 UDVIAL Amlodipine Besylate (NorvASC 5MG TAB) 10 mg DAILY PO 03/07/25 09:00 04/06/25 08:59 Clonidine HCl (CATApres 0.1 mg TAB) 0.1 mg Q6H PRN PO ADMINISTER FOR SBP/DBP> 03/06/25 11:00 04/05/25 10:59 Furosemide (LASix 100MG VIAL) 100 mg ONCE IVP 03/05/25 20:30 03/05/25 23:59 DC 03/05/25 20:35 100 MG Furosemide (LASix 100MG VIAL) 100 mg ONCE IVP 03/05/25 21:00 03/06/25 04:00 DC Guaifenesin (RobiTUSSin SUGAR-FREE 100 MG/ 5 ML UDCUP) 400 mg Q4H PRN PO cough 03/05/25 21:30 04/04/25 21:29 Heparin Sodium (Porcine) (HEParin 5,000 UNIT VIAL) 5,000 unit BID SQ 03/05/25 21:00 04/04/25 20:59 03/06/25 09:06 5,000 UNIT Heparin Sodium (Porcine) (HEParin 5,000 UNIT VIAL) 10,000 unit AD SQ 03/05/25 23:00 04/04/25 22:59 03/06/25 02:52 10,000 UNIT Hydralazine HCl (APRESOLine 20MG INJ) 10 mg Q6H PRN IV For:SBP above 160;DBP above 90 03/05/25 21:00 04/04/25 20:59 Lactulose (Constulose 20gm/ 30ml Udcup) 20 gm BID PRN PO CONSTIPATION 03/05/25 21:00 04/04/25 20:59 Methylprednisolone Sodium Succinate (Solu-medROL 40MG) 40 mg Q8H IVP 03/06/25 03:30 04/05/25 03:29 03/06/25 11:37 40 MG Morphine Sulfate (morPHINE 2MG SYG) 2 mg Q4H PRN IVP SEVERE PAIN (7-10) 03/05/25 21:30 03/12/25 21:29 Nicardipine HCl 25 mg/Sodium Chloride 250 ml @ 0 mls/hr PROTOCOL IV 03/05/25 21:00 04/04/25 20:59 03/06/25 06:39 50 MLS/HR Ondansetron HCl (zoFRAN 4MG INJ) 4 mg Q6H PRN IV NAUSEA/VOMITING 03/05/25 21:00 04/04/25 20:59 Pantoprazole Sodium (PROTonix 40MG INJ) 40 mg DAILY IV 03/06/25 09:00 04/05/25 08:59 03/06/25 09:05 40 MG Piperacillin Sod/ Tazobactam Sod (Zosyn 3.375gm+NS 50ml) 3.375 gm Q12H IV 03/05/25 21:30 03/15/25 21:29 03/06/25 09:07 3.375 GM Sodium Chloride 250 ml @ 0 mls/hr AD IV 03/05/25 23:00 04/04/25 22:59 Sodium Chloride 1,000 ml @ 0 mls/hr ONCE IV 03/05/25 23:00 04/04/25 22:59 03/06/25 02:53 100 MLS/HR DIAGNOSTICS / RADIOLOGY: PATIENT: LEONOR DOMINIQUE MR#: [id number] : 1965 SEX: F AGE: 60 LOCATION: [facility] ORDER 24 STATUS: ADM IN REPORT#: [id number] SERVICE 23 REASON: CHEST PAIN ORDERING PHYSICIAN: ZOEY LEZAMA MD PROCEDURE: CXR1VW - CHEST 1VW EXAM: CR Chest, 1 view CLINICAL HISTORY: Chest pain. COMPARISON: Chest radiograph dated 11/21/2024. FINDINGS: Small to moderate pleural effusions with mid to lower zone airspace disease and pulmonary edema bilaterally. Mild cardiomegaly. No pneumothorax. The right-sided dual-lumen catheter tip overlies the right atrium. No acute osseous abnormality. IMPRESSION: Small to moderate pleural effusions with mid to lower zone airspace disease and pulmonary edema bilaterally. Mild cardiomegaly. The right-sided dual-lumen catheter tip overlies the right atrium. Compared to the prior study, there is no significant interval change. /[place] DICTATED BY: LIZETTE JAY Jr., MD DATE: 03/05/252236 ELECTRONICALLY SIGNED BY: LIZETTE JAY Jr., MD DATE: 03/05/252236 ASSESSMENT: Acute hypoxemic respiratory failure, POA Fluid overload, POA Hypertensive emergency, POA Sepsis, POA Leukocytosis, POA hyperkalemia, POA Diabetes mellitius type2 PLAN: Acute hypoxemic respiratory failure: Chest x-ray showed small to moderate pleural effusion Supplemental oxygen to maintain O2 saturation greater 92%. Continue BiPAP 14/6, FiO2 60%, rate 14 DuoNebs every 6 hours. Solu-Medrol 125 mg IV times 1 Continue Solu-Medrol at 40 mg IV every 8 hours. Keep patient NPO Fluid overload, ESRD on H/D. Creatinine on arrival was 12.7 and BUN was 91 Patient is being followed by Nephrology Service, Dr. Vega who recommended emergency hemodialysis. Monitor intake and output every shift. Weight patient daily. 1500 mL daily fluid restriction. Avoid nephrotoxic agents when possible. Renally dose all medications when possible, Check BNP, follow up with the results Hypertensive emergency: Continue Cardene drip per emergency room monitors. The patient takes amlodipine at home, and the medication was reconciled. Sepsis, leukocytosis: Patient presents with tachypnea, tachycardia, leukocytosis meeting clinical sepsis criteria. Decided against IV fluid resuscitation given patient's renal status and current fluid overload. Empiric antibiotic therapy with Zosyn -Day 2 Lactic acid was 2.2 and procalcitonin was 0.3. Hyperkalemia: Patient received hyperkalemia cocktail in the emergency department. (albuterol treatment, calcium chloride, insulin 5 units IV). After hemodialysis repeat potassium was 3.7 Diabetes mellitus type 2: Check hemoglobin A1c in a.m. Glucometer checks a.c. and HS 1800 ADA diet once patient is a longer NPO Humulin R sliding scale GI prophylaxis, Protonix DVT prophylaxis, heparin PHYSICIAN STATEMENT I was present with the resident during the History and Physical exam and I have reviewed the resident's note. This case was discussed with the resident and I agree with the history, physical exam and medical decision making as documented. Additions/exceptions/observations were directly added to the notes. Yogesh Dumont MD, SYED M MD Mar 06, 2025 12:20
[2025-03-06] MEDS: amLODIPine 5 MG TAB PO ONE (13:17)
--- NOTE | 2025-03-06 14:04 | PN ---
NEPHROLOGY PROGRESS NOTE Date/Time Patient Seen: Mar 06, 2025 SUBJECTIVE: This is a 60-year-old female with a past medical history of diabetes mellitus type 2, hypertension, end-stage renal disease, and hyperlipidemia. She does have occasionally dialysis in [place] The patient is now admitted with acute respiratory failure, severe hyperkalemia, severe hypertension. No other associated findings. No other aggravating or relieving factor. She tolerated or as noted difficulty yesterday Potassium is 3.7 mmol/L Patient states pulmonary symptoms have improved She continues on antibiotics Antihypertensive medications continue to be adjusted She was seen in the ICU, in no acute distress Family at the bedside REVIEW OF SYSTEMS: GENERAL: Positive for generalized weakness NEUROLOGIC: Negative for any blurry vision, blind spots, double vision, facial asymmetry, dysphagia, dysarthria, hemiparesis, hemisensory deficits, vertigo, ataxia. HEENT: Negative for any head trauma, neck trauma, neck stiffness, photophobia, phonophobia, sinusitis, rhinitis. CARDIAC: Negative for any chest pain, dyspnea on exertion, paroxysmal nocturnal dyspnea, peripheral edema. PULMONARY: Negative for any shortness of breath, wheezing, COPD, or TB exposure. GASTROINTESTINAL: Negative for any abdominal pain, nausea, vomiting, bright red blood per rectum, melena. GENITOURINARY: Negative for any dysuria, hematuria, incontinence. INTEGUMENTARY: Negative for any rashes, cuts, insect bites. RHEUMATOLOGIC: Negative for any joint pains, photosensitive rashes, history of vasculitis or kidney problems. HEMATOLOGIC: Negative for any abnormal bruising, frequent infections or bleeding. Vital Signs (last 8hr) Date Time Temp Pulse Resp B/P (MAP) Pulse Ox O2 Delivery O2 Flow Rate FiO2 03/06/25 11:26 98.8 96 16 157/72 96 Nasal Cannula 5.0 03/06/25 11:11 95 16 158/75 97 03/06/25 10:57 90 18 N/Cannula Low lpm 5.0 40 03/06/25 10:57 90 20 03/06/25 10:56 95 14 158/77 97 03/06/25 10:41 91 15 161/74 99 03/06/25 10:26 92 15 167/78 97 03/06/25 10:11 91 12 159/74 97 03/06/25 09:26 92 15 152/61 95 03/06/25 09:11 92 27 157/80 94 Nasal Cannula 5.0 03/06/25 08:56 92 14 153/71 95 03/06/25 08:41 91 9 146/74 92 Nasal Cannula 5.0 03/06/25 08:26 88 16 142/70 96 03/06/25 08:11 87 14 151/63 97 Nasal Cannula 5.0 03/06/25 07:55 91 18 N/Cannula Low lpm 5.0 40 03/06/25 07:54 96 Nasal Cannula* 5 40 03/06/25 07:26 98.6 90 18 145/71 (95) 99 03/06/25 07:11 91 16 154/71 (98) 99 03/06/25 06:41 91 18 151/66 (94) 99 03/06/25 06:26 89 15 159/71 (100) 99 03/06/25 06:21 89 14 60 03/06/25 06:17 89 23 03/06/25 06:12 87 9 154/79 (104) 99 PHYSICAL EXAM: GENERAL: Alert and oriented x 3. No acute distress. Well-nourished. EYES: EOMI. Anicteric. HENT: Moist mucous membranes. No scleral icterus. No cervical lymphadenopathy. LUNGS: Clear to auscultation bilaterally. No accessory muscle use. CARDIOVASCULAR: Regular rate and rhythm. No murmur. No JVD. ABDOMEN: Soft, non-tender and non-distended. No palpable masses. EXTREMITIES: No edema. Non-tender. SKIN: No rashes or lesions. Warm. NEUROLOGIC: No focal neurological deficits. CN II-XII grossly intact, but not individually tested. PSYCHIATRIC: Cooperative. Appropriate mood and affect. Current Medications Medications (Trade) Dose Ordered Sig/Luis Route PRN Reason Start Time Stop Time Status Last Admin Dose Admin Acetaminophen (TYLenol 325MG TAB) 650 mg Q6H PRN PO TEMPERATURE GREATER THAN 101.5 03/05/25 21:00 04/04/25 20:59 Albuterol (DUOneb) 1 UDVIAL [id number] IH 03/06/25 00:00 04/05/25 00:00 03/06/25 10:58 1 UDVIAL Amlodipine Besylate (NorvASC 5MG TAB) 10 mg DAILY PO 03/07/25 09:00 04/06/25 08:59 Clonidine HCl (CATApres 0.1 mg TAB) 0.1 mg Q6H PRN PO ADMINISTER FOR SBP/DBP>170 03/06/25 11:00 04/05/25 10:59 Furosemide (LASix 100MG VIAL) 100 mg ONCE IVP 03/05/25 20:30 03/05/25 23:59 DC 03/05/25 20:35 100 MG Furosemide (LASix 100MG VIAL) 100 mg ONCE IVP 03/05/25 21:00 03/06/25 04:00 DC Guaifenesin (RobiTUSSin SUGAR-FREE 100 MG/ 5 ML UDCUP) 400 mg Q4H PRN PO cough 03/05/25 21:30 04/04/25 21:29 Heparin Sodium (Porcine) (HEParin 5,000 UNIT VIAL) 5,000 unit BID SQ 03/05/25 21:00 04/04/25 20:59 03/06/25 09:06 5,000 UNIT Heparin Sodium (Porcine) (HEParin 5,000 UNIT VIAL) 10,000 unit AD IRRIG 03/06/25 13:00 04/04/25 22:59 Heparin Sodium (Porcine) (HEParin 5,000 UNIT VIAL) 10,000 unit AD SQ 03/05/25 23:00 03/06/25 12:58 DC 03/06/25 02:52 10,000 UNIT Hydralazine HCl (APRESOLine 20MG INJ) 10 mg Q6H PRN IV For:SBP above 160;DBP above 90 03/05/25 21:00 04/04/25 20:59 Lactulose (Constulose 20gm/ 30ml Udcup) 20 gm BID PRN PO CONSTIPATION 03/05/25 21:00 04/04/25 20:59 Methylprednisolone Sodium Succinate (Solu-medROL 40MG) 40 mg Q8H IVP 03/06/25 03:30 04/05/25 03:29 03/06/25 11:37 40 MG Morphine Sulfate (morPHINE 2MG SYG) 2 mg Q4H PRN IVP SEVERE PAIN (7-10) 03/05/25 21:30 03/12/25 21:29 Nicardipine HCl 25 mg/Sodium Chloride 250 ml @ 0 mls/hr PROTOCOL IV 03/05/25 21:00 04/04/25 20:59 03/06/25 06:39 50 MLS/HR Ondansetron HCl (zoFRAN 4MG INJ) 4 mg Q6H PRN IV NAUSEA/VOMITING 03/05/25 21:00 04/04/25 20:59 Pantoprazole Sodium (PROTonix 40MG INJ) 40 mg DAILY IV 03/06/25 09:00 04/05/25 08:59 03/06/25 09:05 40 MG Piperacillin Sod/ Tazobactam Sod (Zosyn 3.375gm+NS 50ml) 3.375 gm Q12H IV 03/05/25 21:30 03/15/25 21:29 03/06/25 09:07 3.375 GM Sodium Chloride 250 ml @ 0 mls/hr AD IV 03/05/25 23:00 04/04/25 22:59 Sodium Chloride 1,000 ml @ 0 mls/hr ONCE IV 03/05/25 23:00 04/04/25 22:59 03/06/25 02:53 100 MLS/HR LABORATORY: [ ] Hematology Labs: Test 03/06/25 03:20 03/05/25 20:33 Range/Units White Blood Count 12.7 H 4.8-10.8 K/uL Red Blood Count 3.43 L 4.00-5.50 MIL/uL Hemoglobin 10.0 L 12.0-16.0 g/dL Hematocrit 29.9 L 36-48 % Mean Corpuscular Volume 87.2 79-99 fL Mean Corpuscular Hemoglobin 29.2 27.0-33.0 pg Mean Corpuscular Hemoglobin Concent 33.4 32.0-36.0 g/dL Red Cell Distribution Width 17.0 H 11.0-15.5 % Platelet Count 213 130-400 K/uL Mean Platelet Volume 11.6 H 7.5-10.5 fL Immature Granulocyte % (Auto) 0.5 0-1 % Neutrophils (%) (Auto) 89.3 H 40.0-77.0 % Lymphocytes (%) (Auto) 3.9 L 21.0-51.0 % Monocytes (%) (Auto) 5.9 3.0-13.0 % Eosinophils (%) (Auto) 0.0 0.0-8.0 % Basophils (%) (Auto) 0.4 0.0-5.0 % Neutrophils # (Auto) 11.3 H 1.8-7.7 K/uL Lymphocytes # (Auto) 0.5 L 1.0-4.8 K/uL Monocytes # (Auto) 0.8 0.1-1.0 K/uL Eosinophils # (Auto) 0.00 0.00-0.70 K/uL Basophils # (Auto) 0.05 0.00-0.20 K/uL Absolute Immature Granulocyte (auto 0.06 0-1 K/uL Nucleated Red Blood Cells 0.0 0.0-0.19 % White Cell Morphology Comment See comments Chemistry Labs: Test 03/06/25 03:20 03/05/25 20:33 Range/Units Sodium Level 138 136-145 mmol/L Potassium Level 3.7 3.5-5.1 mmol/L Chloride Level 93 L 101-111 mmol/L Carbon Dioxide Level 28 21-32 mmol/L Blood Urea Nitrogen 50 #H 7-18 mg/dL Creatinine 7.0 H 0.5-1.0 mg/dL Glomerular Filtration Rate Calc 6 >90 mL/min Random Glucose 125 H 70-105 mg/dL Lactic Acid Level 1.7 0.8-2.5 mmol/L Total Calcium 8.6 8.5-10.1 mg/dL Phosphorus Level 4.5 2.5-4.9 mg/dL Magnesium Level 2.70 H 1.80-2.40 mg/dL Total Creatine Kinase 274 H 21-232 U/L Troponin I High Sensitivity 83 *H 4-50 ng/L B-Type Natriuretic Peptide > 5000 H 0-100 pg/mL Procalcitonin 0.13 0.05-0.5 ng/mL DIAGNOSTICS / RADIOLOGY: [place] [address] IMAGING REPORT Signed PATIENT: LEONOR DOMINIQUE MR#: [id number] : 1965 SEX: F AGE: 60 LOCATION: [facility] ORDER 24 STATUS: ADM IN REPORT#: [id number] SERVICE 23 REASON: CHEST PAIN ORDERING PHYSICIAN: ZOEY LEZAMA MD PROCEDURE: CXR1VW - CHEST 1VW EXAM: CR Chest, 1 view CLINICAL HISTORY: Chest pain. COMPARISON: Chest radiograph dated 11/21/2024. FINDINGS: Small to moderate pleural effusions with mid to lower zone airspace disease and pulmonary edema bilaterally. Mild cardiomegaly. No pneumothorax. The right-sided dual-lumen catheter tip overlies the right atrium. No acute osseous abnormality. IMPRESSION: Small to moderate pleural effusions with mid to lower zone airspace disease and pulmonary edema bilaterally. Mild cardiomegaly. The right-sided dual-lumen catheter tip overlies the right atrium. Compared to the prior study, there is no significant interval change. /[facility] DICTATED BY: LIZETTE JAY Jr., MD DATE: 03/05/252236 ELECTRONICALLY SIGNED BY: LIZETTE JAY Jr., MD DATE: 03/05/252236 ASSESSMENT: Life-threatening hyperkalemia Fluid overload Acute on chronic renal failure Anemia Hypertensive emergency Acute hypoxemic respiratory failure, recurrent BiPAP Sepsis Leukocytosis Diabetes mellitus type 2 Diabetic nephropathy Noncompliance PLAN: Labs and Diagnostics/ Radiology personally reviewed and interpreted by myself and supervising physician We have reviewed dialysis and external records in detail No dialysis planned for today IV Cardene drip can be given for blood pressure. 1.5 L fluid restriction Continue to monitor H&H Continue with frequent monitoring of renal function, anemia, and electrolytes Order CBC, BMP, and electrolytes in the morning May use Dilaudid 0.5 mg IV every 6 hours as needed for severe pain Monitor blood pressure adjust medication doses as needed Maintain normotensive stat Strict intake, output, and daily weight should be monitored Please renally adjust medications. Avoid nephrotoxics and nonsteroidal drugs. We will continue to monitor the patient closely We have discussed with the other team physicians in detail about the care plan Total critical care time spent with patient, nursing staff, critical care team over 35 minutes ATTESTATION BY PHYSICIAN I have seen and examined the patient. I reviewed the documentation, medical decision making, and treatment plan as noted by the mid-level provider above. I agree with the findings and plan of care. CORA MORIN MD, [facility] Mar 06, 2025 14:04
--- NOTE | 2025-03-06 15:37 | NUR ---
DCP: HOME Sw met with pt and daughter Vida Hopkins [phone]. Per daughter, pt lives in [facility] but comes to [place] for medical care. Pt lives with a "man", and they have a home in [place]. Pt uses a Walker with seat at home, family transports as needed. Pt goes to dialysis in [facility] on . Pt to dc home with daughter and then return to [facility]. Addendum: 03/06/25 at 1554 by FALGUNI RIVERA Amended: Links added.
--- NOTE | 2025-03-06 18:28 | CONS ---
[facility] CONSULTATION NOTE Date Patient Seen: Mar 06, 2025 Time of Visit: 18:28 Supervising Physician: Jerald Vick MD Reason for Consultation: Acute heart failure Hypertensive emergency Primary Care Physician: Self Referral Outpatient Specialists: Inpatient Consults: Dr Powers, Dr Church, Attending Yogesh Hunt PROBLEM LIST: Acute hypoxemic respiratory failure, POA ESRD in need of HD POA Hypertensive emergency, POA, resolved Sepsis, POA Chronica anemia from CKD POA Rt lower lobe pneumonia POA ( R/O flu and covid) [id number] acute heart failure POA (pending 2D echo) Electrolyte derangement (hyperkalemia,Hypocalcemia, Hypermagnesemia) POA, resolving Hyperglycemia in the presence of T2DM POA HPI: This is a 60-year-old female with a past medical history of type 2 diabetes mellitus, hypertension, ESRD on hemodialysis with the stock holder in [place], per daughter last hemodialysis approximately one month ago who presented to the ED on 03/05/25 for increased shortness of breath requiring BiPAP. On arrival to the ED patient was found to be in respiratory distress plan decision was made by catalyst team to admit to ICU on BiPAP, consult stock holder, and we were consulted for CCM of suspected acute hehart failure and Hypoxemic resp failure. Pt was started on Cardene drip for hypertensive emergency for Blood pressure of 261/134. Pt was Dialyzed overnight with 2 L out. She is now Off bipap on 4 L of o2 via NC. in NAD. She is off cardene gtt. Potassium has improved from 6.1-3.7 today. Lactic acid 1.7. Chest x-ray shows [id number] pleural effusions with mild to lower zone airspace disease and pulmonary edema bilaterally, mild cardiomegaly. The right-sided dual lumen catheter tip overlies the right atrium. Converted to prior study that is no Rocephin interval change. We will test per COVID, influenza and MRSA swab. Continue to follow Neprhology recommendations. Pending 2D echo. PAST MEDICAL HX: see above PAST SURGICAL HX: noncontributory SOCIAL HISTORY: No tobacco, ETOH, or illicit drug use Coded Allergies: No Known Allergies (Unverified Allergy, Unknown, 11/21/24) REVIEW OF SYSTEMS: Const: no fever, fatigue, or weight changes Eyes: no recent vision problems ENT: No congestion, ear pain, or sore throat C/V: no chest pain, palpitations or edema Resp: No cough, SOB on exertion,. GI: No abdominal pain, nausea, vomiting, constipation, or diarrhea : No incontinence of or dyuria M/S: No joint or pain swelling Skin: No rash Neuro: no headache, focal numbness, or weakness, dizziness or seizures Psych: no depression or anxiety Heme: no abnormal bruising or bleeding Lymph: no swollen glands PHYSICAL EXAM: GENERAL: alert, weak, awake oriented x 3 HEENT: EOMI, Sclera non icteric, moist mucosa NECK: Supple, no JVD, trachea midline LUNGS: Diminished breath sounds bilaterally. No wheezes HEART: Regular rate and rhythm. Normal S1 and S2, without murmurs ABD: Abdomen soft, nontender. Bowel sounds present EXT: No clubbing cyanosis or edema NEURO: Alert and oriented to person, follows commands Vital Signs (last 8hr) Date Time Temp Pulse Resp B/P (MAP) Pulse Ox O2 Delivery O2 Flow Rate FiO2 03/06/25 14:54 99 174/103 03/06/25 14:11 100 15 176/83 95 03/06/25 13:56 93 21 165/77 95 Nasal Cannula 3.0 03/06/25 13:41 97 15 169/83 95 03/06/25 13:26 99 16 169/79 95 Nasal Cannula 3.0 03/06/25 13:11 99 21 167/77 95 03/06/25 12:56 97 17 159/77 95 Nasal Cannula 5.0 03/06/25 12:41 93 16 158/67 96 03/06/25 12:26 98 16 152/69 95 Nasal Cannula 5.0 03/06/25 12:11 98 18 154/67 95 03/06/25 11:26 98.8 96 16 157/72 96 Nasal Cannula 5.0 03/06/25 11:11 95 16 158/75 97 03/06/25 10:57 90 18 N/Cannula Low lpm 5.0 40 03/06/25 10:57 90 20 03/06/25 10:56 95 14 158/77 97 03/06/25 10:41 91 15 161/74 99 LABS: Hematology Labs: Test 03/06/25 03:20 03/05/25 20:33 Range/Units White Blood Count 12.7 H 4.8-10.8 K/uL Red Blood Count 3.43 L 4.00-5.50 MIL/uL Hemoglobin 10.0 L 12.0-16.0 g/dL Hematocrit 29.9 L 36-48 % Mean Corpuscular Volume 87.2 79-99 fL Mean Corpuscular Hemoglobin 29.2 27.0-33.0 pg Mean Corpuscular Hemoglobin Concent 33.4 32.0-36.0 g/dL Red Cell Distribution Width 17.0 H 11.0-15.5 % Platelet Count 213 130-400 K/uL Mean Platelet Volume 11.6 H 7.5-10.5 fL Immature Granulocyte % (Auto) 0.5 0-1 % Neutrophils (%) (Auto) 89.3 H 40.0-77.0 % Lymphocytes (%) (Auto) 3.9 L 21.0-51.0 % Monocytes (%) (Auto) 5.9 3.0-13.0 % Eosinophils (%) (Auto) 0.0 0.0-8.0 % Basophils (%) (Auto) 0.4 0.0-5.0 % Neutrophils # (Auto) 11.3 H 1.8-7.7 K/uL Lymphocytes # (Auto) 0.5 L 1.0-4.8 K/uL Monocytes # (Auto) 0.8 0.1-1.0 K/uL Eosinophils # (Auto) 0.00 0.00-0.70 K/uL Basophils # (Auto) 0.05 0.00-0.20 K/uL Absolute Immature Granulocyte (auto 0.06 0-1 K/uL Nucleated Red Blood Cells 0.0 0.0-0.19 % White Cell Morphology Comment See comments Chemistry Labs: Test 03/06/25 03:20 03/05/25 20:33 Range/Units Sodium Level 138 136-145 mmol/L Potassium Level 3.7 3.5-5.1 mmol/L Chloride Level 93 L 101-111 mmol/L Carbon Dioxide Level 28 21-32 mmol/L Blood Urea Nitrogen 50 #H 7-18 mg/dL Creatinine 7.0 H 0.5-1.0 mg/dL Glomerular Filtration Rate Calc 6 >90 mL/min Random Glucose 125 H 70-105 mg/dL Lactic Acid Level 1.7 0.8-2.5 mmol/L Total Calcium 8.6 8.5-10.1 mg/dL Phosphorus Level 4.5 2.5-4.9 mg/dL Magnesium Level 2.70 H 1.80-2.40 mg/dL Total Creatine Kinase 274 H 21-232 U/L Troponin I High Sensitivity 83 *H 4-50 ng/L B-Type Natriuretic Peptide > 5000 H 0-100 pg/mL Procalcitonin 0.13 0.05-0.5 ng/mL DIAGNOSTICS / RADIOLOGY RESULTS: [facility] [address] [place] [address] IMAGING REPORT Signed PATIENT: LEONOR DOMINIQUE MR#: [id number] : 1965 SEX: F AGE: 60 LOCATION: [facility] ORDER 24 STATUS: ADM IN REPORT#: [id number] SERVICE 23 REASON: CHEST PAIN ORDERING PHYSICIAN: ZOEY LEZAMA MD PROCEDURE: CXR1VW - CHEST 1VW EXAM: CR Chest, 1 view CLINICAL HISTORY: Chest pain. COMPARISON: Chest radiograph dated 11/21/2024. FINDINGS: Small to moderate pleural effusions with mid to lower zone airspace disease and pulmonary edema bilaterally. Mild cardiomegaly. No pneumothorax. The right-sided dual-lumen catheter tip overlies the right atrium. No acute osseous abnormality. IMPRESSION: Small to moderate pleural effusions with mid to lower zone airspace disease and pulmonary edema bilaterally. Mild cardiomegaly. The right-sided dual-lumen catheter tip overlies the right atrium. Compared to the prior study, there is no significant interval change. /Dora DICTATED BY: LIZETTE JYA Jr., MD DATE: 03/05/252236 ELECTRONICALLY SIGNED BY: LIZETTE AJY Jr., MD DATE: 03/05/252236 PLAN Downgrade DC Cardene gtt Labetalol and hydralazine prn 2D echo follow nephrology recs Check for flu and covid cover for healthcare and CAP empirically wean o2 as possible NEURO: Minimize central acting medications as possible. Fall Precautions. Well lighted room through the day and minimize interruptions through the night to prevent acute delirium. PULMONARY: Supplemental 02 as needed Titrate Fio2 to keep Spo2 > or = 90% DuoNebs and CPT as needed IS hourly while awake for pulmonary hygiene Out of bed to chair as tolerated CARDIOVASCULAR: Follow hemodynamics. Titrate vasopressor to keep MAP >65 or systolic blood pressure >95mmHg cardiac monitoring DIPS: none LINES: PIV Rt chest wall HD line GI & NUTRITION: Continue nutritional support Aspirations precautions Prokinetic agents and laxatives as needed KIDNEYS & ELECTROLYTES: Strict monitoring of intake and output Daily weights Avoid nephrotoxic agents Monitor electrolytes and replace as needed Goal urine output of 30mL/hr or 0.5mL/kg/hr ENDOCRINE: Maintain blood glucose between 100-180 at all times. Insulin sliding scale for blood glucose management INFECTIOUS DISEASE: Trend temperature. Mays-culture if febrile. Micro: [ ] Blood cultures 03/05- resp culture- influenza A/B - Covid 19- Antibiotics: Zosyn add Doxy and Vanco HEMATOLOGY & COAGULATION: Monitor H&H. Keep Hgb > 7 Transfuse 1 unit of PRBC for Hgb < 7 Transfuse 1 pack of platelets of platelets < 20, 000 Watch for any signs and symptoms of bleeding SKIN: Pressure ulcer prevention per facility protocol Rehab: PT/OT Prophylaxis: GI: Protonix DVT: Heparin Code Status: Full Resuscitation Disposition: Downgrade to medical floor Other: Total patient care time exceeds 35 minutes excluding all procedures. Case was discussed and seen with my supervising physician. The above plan was formulated and agreed upon. [facility]AN[facility] Mar 06, 2025 18:28
[2025-03-06] MEDS ORDERED: VANCOMYCIN PROTOCOL PER PHARMACY IV SCH (18:30)
[2025-03-06] MEDS: DOXYCYCLINE HYCLATE 100 MG TABLET PO SCH (21:26)
[2025-03-06] MEDS: VANCOMYCIN 1.25 GM/250 ML BAG 250 ML IV ONE (22:05)
[2025-03-06] MEDS: SODIUM CHLORIDE 3% FOR INHALATION 4 ML/AMP VIAL.NEB IH ONE (23:27)
[2025-03-07] VITALS (21 sets, daily range): BP systolic 114–184; BP diastolic 39–96; PULSE 94–108; RESP 17–20; TEMP 98.2–100.8; O2SAT 92–98
[2025-03-07 06:54] LABS: NUCLEATED RED BLOOD CELLS 0.0 % (0.0-0.19); PLATELET COUNT (AUTO) 256.0 K/uL (130-400); RED BLOOD CELL COUNT(AUTO) 3.12 MIL/uL (4.00-5.50); RED CELL DISTRIBUTION WIDTH 17.5 % (11.0-15.5); WHITE BLOOD COUNT (AUTO) 11.4 K/uL (4.8-10.8)
[2025-03-07] MEDS: SODIUM CHLORIDE 3% FOR INHALATION 4 ML/AMP VIAL.NEB IH ONE ×2 (07:06→11:37)
[2025-03-07 07:15] LABS: CREATININE 5.6 mg/dL (0.5-1.0); GLOMERULAR FILTR. RATE CALC 8.0 mL/min (>90); GLUCOSE,RANDOM 227.0 mg/dL (70-105); PHOSPHORUS 5.9 mg/dL (2.5-4.9); SODIUM SERUM 135.0 mmol/L (136-145); UREA NITROGEN, BLOOD 38.0 mg/dL (7-18)
--- NOTE | 2025-03-07 08:00 | NUR ---
PT REMOVED IV PER SELF. EXPERIENCES MOMENTS OF CONFUSION. AOX2 NAME AND . DR RIVERA ROUNDED AND ASSESS PT. WILL CONT TO MONITOR BED AT LOWEST POSITION AND ALARM ACTIVATED
--- NOTE | 2025-03-07 10:16 | NUR ---
VENOUS US: PERFORMED AT BED SIDE TO RA D/T EDEMA ANETA WELL DENIES PAIN
--- NOTE | 2025-03-07 12:30 | NUR ---
PER DR MORIN NO DIALYSIS TODAY.
--- NOTE | 2025-03-07 13:48 | PN ---
NEPHROLOGY PROGRESS NOTE Date/Time Patient Seen: Mar 07, 2025 SUBJECTIVE: This is a 60-year-old female with a past medical history of diabetes mellitus type 2, hypertension, end-stage renal disease, and hyperlipidemia. She does have occasionally dialysis in [place] The patient is now admitted with acute respiratory failure, severe hyperkalemia, severe hypertension. No other associated findings. No other aggravating or relieving factor. She tolerated dialysis difficulty yesterday Patient states pulmonary symptoms have improved She continues on antibiotics Antihypertensive medications continue to be adjusted She was seen in the medical floor, in no acute distress Family at the bedside REVIEW OF SYSTEMS: GENERAL: Positive for generalized weakness NEUROLOGIC: Negative for any blurry vision, blind spots, double vision, facial asymmetry, dysphagia, dysarthria, hemiparesis, hemisensory deficits, vertigo, ataxia. HEENT: Negative for any head trauma, neck trauma, neck stiffness, photophobia, phonophobia, sinusitis, rhinitis. CARDIAC: Negative for any chest pain, dyspnea on exertion, paroxysmal nocturnal dyspnea, peripheral edema. PULMONARY: Negative for any shortness of breath, wheezing, COPD, or TB exposure. GASTROINTESTINAL: Negative for any abdominal pain, nausea, vomiting, bright red blood per rectum, melena. GENITOURINARY: Negative for any dysuria, hematuria, incontinence. INTEGUMENTARY: Negative for any rashes, cuts, insect bites. RHEUMATOLOGIC: Negative for any joint pains, photosensitive rashes, history of vasculitis or kidney problems. HEMATOLOGIC: Negative for any abnormal bruising, frequent infections or bleeding. Vital Signs (last 8hr) Date Time Temp Pulse Resp B/P (MAP) Pulse Ox O2 Delivery O2 Flow Rate FiO2 03/06/25 11:26 98.8 96 16 157/72 96 Nasal Cannula 5.0 03/06/25 11:11 95 16 158/75 97 03/06/25 10:57 90 18 N/Cannula Low lpm 5.0 40 03/06/25 10:57 90 20 03/06/25 10:56 95 14 158/77 97 03/06/25 10:41 91 15 161/74 99 03/06/25 10:26 92 15 167/78 97 03/06/25 10:11 91 12 159/74 97 03/06/25 09:26 92 15 152/61 95 03/06/25 09:11 92 27 157/80 94 Nasal Cannula 5.0 03/06/25 08:56 92 14 153/71 95 03/06/25 08:41 91 9 146/74 92 Nasal Cannula 5.0 03/06/25 08:26 88 16 142/70 96 03/06/25 08:11 87 14 151/63 97 Nasal Cannula 5.0 03/06/25 07:55 91 18 N/Cannula Low lpm 5.0 40 03/06/25 07:54 96 Nasal Cannula* 5 40 03/06/25 07:26 98.6 90 18 145/71 (95) 99 03/06/25 07:11 91 16 154/71 (98) 99 03/06/25 06:41 91 18 151/66 (94) 99 03/06/25 06:26 89 15 159/71 (100) 99 03/06/25 06:21 89 14 60 03/06/25 06:17 89 23 03/06/25 06:12 87 9 154/79 (104) 99 PHYSICAL EXAM: GENERAL: Alert and oriented x 3. No acute distress. Well-nourished. EYES: EOMI. Anicteric. HENT: Moist mucous membranes. No scleral icterus. No cervical lymphadenopathy. LUNGS: Clear to auscultation bilaterally. No accessory muscle use. CARDIOVASCULAR: Regular rate and rhythm. No murmur. No JVD. ABDOMEN: Soft, non-tender and non-distended. No palpable masses. EXTREMITIES: No edema. Non-tender. SKIN: No rashes or lesions. Warm. NEUROLOGIC: No focal neurological deficits. CN II-XII grossly intact, but not individually tested. PSYCHIATRIC: Cooperative. Appropriate mood and affect. Current Medications Medications (Trade) Dose Ordered Sig/Luis Route PRN Reason Start Time Stop Time Status Last Admin Dose Admin Acetaminophen (TYLenol 325MG TAB) 650 mg Q6H PRN PO TEMPERATURE GREATER THAN 101.5 03/05/25 21:00 04/04/25 20:59 Albuterol (DUOneb) 1 UDVIAL [id number] IH 03/06/25 00:00 04/05/25 00:00 03/06/25 10:58 1 UDVIAL Amlodipine Besylate (NorvASC 5MG TAB) 10 mg DAILY PO 03/07/25 09:00 04/06/25 08:59 Clonidine HCl (CATApres 0.1 mg TAB) 0.1 mg Q6H PRN PO ADMINISTER FOR SBP/DBP>170 03/06/25 11:00 04/05/25 10:59 Furosemide (LASix 100MG VIAL) 100 mg ONCE IVP 03/05/25 20:30 03/05/25 23:59 DC 03/05/25 20:35 100 MG Furosemide (LASix 100MG VIAL) 100 mg ONCE IVP 03/05/25 21:00 03/06/25 04:00 DC Guaifenesin (RobiTUSSin SUGAR-FREE 100 MG/ 5 ML UDCUP) 400 mg Q4H PRN PO cough 03/05/25 21:30 04/04/25 21:29 Heparin Sodium (Porcine) (HEParin 5,000 UNIT VIAL) 5,000 unit BID SQ 03/05/25 21:00 04/04/25 20:59 03/06/25 09:06 5,000 UNIT Heparin Sodium (Porcine) (HEParin 5,000 UNIT VIAL) 10,000 unit AD IRRIG 03/06/25 13:00 04/04/25 22:59 Heparin Sodium (Porcine) (HEParin 5,000 UNIT VIAL) 10,000 unit AD SQ 03/05/25 23:00 03/06/25 12:58 DC 03/06/25 02:52 10,000 UNIT Hydralazine HCl (APRESOLine 20MG INJ) 10 mg Q6H PRN IV For:SBP above 160;DBP above 90 03/05/25 21:00 04/04/25 20:59 Lactulose (Constulose 20gm/ 30ml Udcup) 20 gm BID PRN PO CONSTIPATION 03/05/25 21:00 04/04/25 20:59 Methylprednisolone Sodium Succinate (Solu-medROL 40MG) 40 mg Q8H IVP 03/06/25 03:30 04/05/25 03:29 03/06/25 11:37 40 MG Morphine Sulfate (morPHINE 2MG SYG) 2 mg Q4H PRN IVP SEVERE PAIN (7-10) 03/05/25 21:30 03/12/25 21:29 Nicardipine HCl 25 mg/Sodium Chloride 250 ml @ 0 mls/hr PROTOCOL IV 03/05/25 21:00 04/04/25 20:59 03/06/25 06:39 50 MLS/HR Ondansetron HCl (zoFRAN 4MG INJ) 4 mg Q6H PRN IV NAUSEA/VOMITING 03/05/25 21:00 04/04/25 20:59 Pantoprazole Sodium (PROTonix 40MG INJ) 40 mg DAILY IV 03/06/25 09:00 04/05/25 08:59 03/06/25 09:05 40 MG Piperacillin Sod/ Tazobactam Sod (Zosyn 3.375gm+NS 50ml) 3.375 gm Q12H IV 03/05/25 21:30 03/15/25 21:29 03/06/25 09:07 3.375 GM Sodium Chloride 250 ml @ 0 mls/hr AD IV 03/05/25 23:00 04/04/25 22:59 Sodium Chloride 1,000 ml @ 0 mls/hr ONCE IV 03/05/25 23:00 04/04/25 22:59 03/06/25 02:53 100 MLS/HR LABORATORY: [ ] Hematology Labs: Test 03/07/25 06:44 03/06/25 03:20 03/05/25 20:33 Range/Units White Blood Count 11.4 H 4.8-10.8 K/uL Red Blood Count 3.12 L 4.00-5.50 MIL/uL Hemoglobin 9.2 L 12.0-16.0 g/dL Hematocrit 27.1 L 36-48 % Mean Corpuscular Volume 86.9 79-99 fL Mean Corpuscular Hemoglobin 29.5 27.0-33.0 pg Mean Corpuscular Hemoglobin Concent 33.9 32.0-36.0 g/dL Red Cell Distribution Width 17.5 H 11.0-15.5 % Platelet Count 256 130-400 K/uL Mean Platelet Volume 11.7 H 7.5-10.5 fL Nucleated Red Blood Cells 0.0 0.0-0.19 % Immature Granulocyte % (Auto) 0.5 0-1 % Neutrophils (%) (Auto) 89.3 H 40.0-77.0 % Lymphocytes (%) (Auto) 3.9 L 21.0-51.0 % Monocytes (%) (Auto) 5.9 3.0-13.0 % Eosinophils (%) (Auto) 0.0 0.0-8.0 % Basophils (%) (Auto) 0.4 0.0-5.0 % Neutrophils # (Auto) 11.3 H 1.8-7.7 K/uL Lymphocytes # (Auto) 0.5 L 1.0-4.8 K/uL Monocytes # (Auto) 0.8 0.1-1.0 K/uL Eosinophils # (Auto) 0.00 0.00-0.70 K/uL Basophils # (Auto) 0.05 0.00-0.20 K/uL Absolute Immature Granulocyte (auto 0.06 0-1 K/uL White Cell Morphology Comment See comments Chemistry Labs: Test 03/07/25 10:55 03/07/25 06:44 03/06/25 03:20 03/05/25 20:33 Range/Units Whole Blood Glucose 226 H 70-110 MG/DL Sodium Level 135 L 136-145 mmol/L Potassium Level 4.8 3.5-5.1 mmol/L Chloride Level 93 L 101-111 mmol/L Carbon Dioxide Level 27 21-32 mmol/L Blood Urea Nitrogen 38 H 7-18 mg/dL Creatinine 5.6 H 0.5-1.0 mg/dL Glomerular Filtration Rate Calc 8 >90 mL/min Random Glucose 227 H 70-105 mg/dL Total Calcium 8.9 8.5-10.1 mg/dL Phosphorus Level 5.9 H 2.5-4.9 mg/dL Magnesium Level 2.40 1.80-2.40 mg/dL Troponin I High Sensitivity 126 *H 4-50 ng/L Lactic Acid Level 1.7 0.8-2.5 mmol/L Total Creatine Kinase 274 H 21-232 U/L B-Type Natriuretic Peptide > 5000 H 0-100 pg/mL Procalcitonin 0.13 0.05-0.5 ng/mL DIAGNOSTICS / RADIOLOGY: [place] [address] [address] IMAGING REPORT Signed PATIENT: LEONOR DOMINIQUE MR#: [id number] : 1965 SEX: F AGE: 60 LOCATION: EDHIP ORDER 24 STATUS: ADM IN REPORT#: [id number] SERVICE 23 REASON: CHEST PAIN ORDERING PHYSICIAN: ZOEY LEZAMA MD PROCEDURE: CXR1VW - CHEST 1VW EXAM: CR Chest, 1 view CLINICAL HISTORY: Chest pain. COMPARISON: Chest radiograph dated 11/21/2024. FINDINGS: Small to moderate pleural effusions with mid to lower zone airspace disease and pulmonary edema bilaterally. Mild cardiomegaly. No pneumothorax. The right-sided dual-lumen catheter tip overlies the right atrium. No acute osseous abnormality. IMPRESSION: Small to moderate pleural effusions with mid to lower zone airspace disease and pulmonary edema bilaterally. Mild cardiomegaly. The right-sided dual-lumen catheter tip overlies the right atrium. Compared to the prior study, there is no significant interval change. /Hurricane DICTATED BY: LIZETTE JAY Jr., MD DATE: 03/05/252236 ELECTRONICALLY SIGNED BY: LIZETTE JAY Jr., MD DATE: 03/05/252236 ASSESSMENT: Life-threatening hyperkalemia Fluid overload Acute on chronic renal failure Anemia Hypertensive emergency Acute hypoxemic respiratory failure, recurrent BiPAP Sepsis Leukocytosis Diabetes mellitus type 2 Diabetic nephropathy Noncompliance PLAN: Labs and Diagnostics/ Radiology personally reviewed and interpreted by myself and supervising physician We have reviewed dialysis and external records in detail No dialysis planned for today From Nephrology standpoint, patient may be discharged 1.5 L fluid restriction Monitor blood pressure adjust medication doses as needed Please renally adjust medications. Avoid nephrotoxics and nonsteroidal drugs. We will continue to monitor the patient closely ATTESTATION BY PHYSICIAN I have seen and examined the patient. I reviewed the documentation, medical decision making, and treatment plan as noted by the mid-level provider above. I agree with the findings and plan of care. CORA MORIN MD, [facility] [employer] Mar 07, 2025 13:48
--- NOTE | 2025-03-07 13:50 | PN ---
[facility] PROGRESS NOTE Date of Service: Mar 07, 2025 Time of Service: 13:43 SUBJECTIVE: The patient is a 60-year-old female with past medical history of diabetes, hypertension in ESRD on hemodialysis since 1 year. The patient has hemodialysis in [place] once every week. The patient came to the ER with complain of severe respiratory distress after missing her dialysis appointment. On arrival the chest x-ray showed small to moderate pleural effusion. Patient's creatinine was 12.7, BUN 91, potassium 6.1, lactic acid 2.2, and procalcitonin 0.13. On arrival, the patient's blood pressure was 261/134, respiratory rate 26 and pulse rate was 101. She was started on 15 L of oxygen maintaining O2 saturation of 100%. Due to her high blood pressure, the patient was started on Cardene drip and Nephrology was consulted and they ordered for emergency dialysis. 03/06/2025: The patient speaks Maori, therefore, a slot machine department floorperson was used to talk with the patient. The patient had dialysis overnight and today her creatinine was 7.0 and potassium dropped down to 3.7. Her blood pressure was 157/72 and she was continued a Cardene drip. Patient takes amlodipine at home which was reconciled and will be started once Cardene drip. Patient's son was concerned about her health and we answered all his questions and guided him regarding dialysis and the importance of having regular dialysis at least 3 times a week and to never miss her dialysis. 03/07/2025: The patient speaks Ma[place], therefore, a slot machine department floorperson was used to talk with the patient. The patient did not complain of shortness of breath or chest pain. The patient was able to remember her name and date of . The patient is not planned for hemodialysis today per Nephrology. Patient's family complain the patient had a fall on her right knee and then the knee is swollen. The patient herself did not complain of any pain or difficulty in movement. An x-r ay of the ankle and the knee was performed. We are awaiting the results. Today her creatinine is 5.6 and potassium is 4.8 REVIEW OF SYSTEMS CONSTITUTIONAL: Denies fevers, chills, or night sweats. No unintentional weight loss reported. NEUROLOGICAL: Denies headache, amaurosis fugax, motor weakness, sensory deficit , vertigo/spinning sensation, gait abnormalities, or tremors. ENT: No hearing loss, otalgia, otorrhea, rhinitis, rhinorrhea, hoarseness, or sore throat. CARDIOVASCULAR: Denies any exertional angina, dyspnea on exertion, orthopnea, paroxysmal nocturnal dyspnea, palpitations, life-threatening arrhythmias, claudication. PULMONARY: Denies any shortness of breath, cough, phlegm/sputum, hemoptysis, pleuritic chest pain. SLEEP: Denies morning headaches, daytime somnolence or napping. Denies difficulty falling asleep, staying asleep, waking from sleep. Denies knowledge of snoring. GASTROINTESTINAL: Denies any type of dysphagia to either liquids or solids. Denies nausea, vomiting, pyrosis, early satiety, abdominal pain, diarrhea, constipation, or changes in stool consistency or caliber. Denies coffee-ground emesis, hematemesis, hematochezia, or melanotic stools. GENITOURINARY: Denies frequency, urgency, nocturia, hematuria or incontinence (Storage/Irritative symptoms.) Low urinary stream, straining to void, urinary intermittency or hesitancy, splitting of the voiding stream, terminal dribbling. ESRD ENDOCRINOLOGIC: Denies polyuria, polydipsia, polyphagia or heat/cold intolerances. PHYSICAL EXAM GENERAL APPEARANCE: The patient is awake, alert, and oriented, in no acute cardiopulmonary distress. Patient is on oxygen. NEUROLOGICAL: Cranial nerves II-XII grossly intact. Motor is 5/5 in bilateral upper and lower extremities proximal to distal. No sensory deficits. HEENT: Face is symmetric. Pupils are equal and reactive. Extraocular movements are intact. NECK: Supple. No JVD. No thyromegaly. No submental, submandibular, pre- /postauricular, occipital or supraclavicular lymphadenopathy. CHEST: Normal chest expansion. No Telemetry. CARDIOVASCULAR: Regular. S1 and S2 normal. No appreciable rubs, murmurs or gallops. ABDOMEN: Soft, nontender, and nondistended. There is no rebound, voluntary guarding, or rigidity. Extremities : Right ankle swelling Vital Signs (last 8hr) Date Time Temp Pulse Resp B/P (MAP) Pulse Ox O2 Delivery O2 Flow Rate FiO2 03/07/25 11:39 102 18 N/A Room Air 21 03/07/25 11:37 102 20 03/07/25 11:34 98.4 104 18 161/84 94 Room Air 03/07/25 07:51 100.4 107 18 149/69 92 Room Air 03/07/25 07:10 105 18 N/A Room Air 03/07/25 07:06 107 20 LABS: Laboratory: Test 03/07/25 10:55 03/07/25 06:44 03/06/25 03:20 03/05/25 20:37 Range/Units Whole Blood Glucose 226 H 70-110 MG/DL White Blood Count 11.4 H 4.8-10.8 K/uL Red Blood Count 3.12 L 4.00-5.50 MIL/uL Hemoglobin 9.2 L 12.0-16.0 g/dL Hematocrit 27.1 L 36-48 % Mean Corpuscular Volume 86.9 79-99 fL Mean Corpuscular Hemoglobin 29.5 27.0-33.0 pg Mean Corpuscular Hemoglobin Concent 33.9 32.0-36.0 g/dL Red Cell Distribution Width 17.5 H 11.0-15.5 % Platelet Count 256 130-400 K/uL Mean Platelet Volume 11.7 H 7.5-10.5 fL Nucleated Red Blood Cells 0.0 0.0-0.19 % Sodium Level 135 L 136-145 mmol/L Potassium Level 4.8 3.5-5.1 mmol/L Chloride Level 93 L 101-111 mmol/L Carbon Dioxide Level 27 21-32 mmol/L Blood Urea Nitrogen 38 H 7-18 mg/dL Creatinine 5.6 H 0.5-1.0 mg/dL Glomerular Filtration Rate Calc 8 >90 mL/min Random Glucose 227 H 70-105 mg/dL Total Calcium 8.9 8.5-10.1 mg/dL Phosphorus Level 5.9 H 2.5-4.9 mg/dL Magnesium Level 2.40 1.80-2.40 mg/dL Troponin I High Sensitivity 126 *H 4-50 ng/L Immature Granulocyte % (Auto) 0.5 0-1 % Neutrophils (%) (Auto) 89.3 H 40.0-77.0 % Lymphocytes (%) (Auto) 3.9 L 21.0-51.0 % Monocytes (%) (Auto) 5.9 3.0-13.0 % Eosinophils (%) (Auto) 0.0 0.0-8.0 % Basophils (%) (Auto) 0.4 0.0-5.0 % Neutrophils # (Auto) 11.3 H 1.8-7.7 K/uL Lymphocytes # (Auto) 0.5 L 1.0-4.8 K/uL Monocytes # (Auto) 0.8 0.1-1.0 K/uL Eosinophils # (Auto) 0.00 0.00-0.70 K/uL Basophils # (Auto) 0.05 0.00-0.20 K/uL Absolute Immature Granulocyte (auto 0.06 0-1 K/uL Lactic Acid Level 1.7 0.8-2.5 mmol/L Blood Gas Specimen Type Arterial Arterial Blood pH 7.425 7.350-7.450 Arterial Blood Partial Pressure CO2 42 32-45 mmHg Arterial Blood Partial Pressure O2 79.3 L 83.0-108.0 mmHg Arterial Blood HCO3 26.6 21.0-28.0 mmol/L Arterial Blood Oxygen Saturation 94.2 94.0-98.0 % Arterial Blood Base Excess 2.0 -2.0-3.0 mmol/L Hemoglobin (Blood Gas) 12.4 12.0-16.0 g/dL Sodium (Blood Gas) 139 136-145 MMOL/L Bedside Potassium (Blood Gas) 6.1 *H 3.4-4.5 MMOL/L Bedside Chloride (Blood Gas) 95 L 98-107 MMOL/L Bedside Glucose (Blood Gas) 159 H 65-95 MG/DL Bedside Ionized Calcium (Blood Gas) 0.88 L 1.15-1.33 MMOL/L Bedside Lactic Acid (Blood Gas) 1.73 H 0.36-0.75 MMOL/L Blood Gas Temperature 37.0 35.5-37.0 CELSIUS Blood Gas Flow-by 15.00 0.00-15.00 L/min Blood Gas Vent Mode NRBM ROOM AIR FiO2 100.0 % Blood Gas Specimen Comment PAM MCGILL Test 03/05/25 20:33 Range/Units White Cell Morphology Comment See comments Total Creatine Kinase 274 H 21-232 U/L B-Type Natriuretic Peptide > 5000 H 0-100 pg/mL Procalcitonin 0.13 0.05-0.5 ng/mL Current Medications Medications (Trade) Dose Ordered Sig/Luis Route PRN Reason Start Time Stop Time Status Last Admin Dose Admin Acetaminophen (TYLenol 325MG TAB) 650 mg Q6H PRN PO TEMPERATURE GREATER THAN 101.5 03/05/25 21:00 04/04/25 20:59 Albuterol (DUOneb) 1 UDVIAL [id number] IH 03/06/25 00:00 04/05/25 00:00 03/07/25 11:37 1 UDVIAL Amlodipine Besylate (NorvASC 5MG TAB) 10 mg DAILY PO 03/07/25 09:00 04/06/25 08:59 Clonidine HCl (CATApres 0.1 mg TAB) 0.1 mg Q6H PRN PO ADMINISTER FOR SBP/DBP>170 03/06/25 11:00 04/05/25 10:59 03/06/25 14:54 0.1 MG Doxycycline Hyclate (Doxycycline Hyclate) 100 mg BID PO 03/06/25 21:00 03/16/25 20:59 03/07/25 08:53 100 MG Furosemide (LASix 100MG VIAL) 100 mg ONCE IVP 03/05/25 20:30 03/05/25 23:59 DC 03/05/25 20:35 100 MG Furosemide (LASix 100MG VIAL) 100 mg ONCE IVP 03/05/25 21:00 03/06/25 04:00 DC Guaifenesin (RobiTUSSin SUGAR-FREE 100 MG/ 5 ML UDCUP) 400 mg Q4H PRN PO cough 03/05/25 21:30 04/04/25 21:29 Heparin Sodium (Porcine) (HEParin 5,000 UNIT VIAL) 5,000 unit BID SQ 03/05/25 21:00 04/04/25 20:59 03/07/25 11:43 5,000 UNIT Heparin Sodium (Porcine) (HEParin 5,000 UNIT VIAL) 10,000 unit AD IRRIG 03/06/25 13:00 04/04/25 22:59 03/06/25 20:43 10,000 UNIT Heparin Sodium (Porcine) (HEParin 5,000 UNIT VIAL) 10,000 unit AD SQ 03/05/25 23:00 03/06/25 12:58 DC 03/06/25 02:52 10,000 UNIT Hydralazine HCl (APRESOLine 20MG INJ) 10 mg Q6H PRN IV For:SBP above 160;DBP above 90 03/05/25 21:00 04/04/25 20:59 03/06/25 22:08 10 MG Labetalol HCl (TRANdate 20MG SYG) 10 mg Q6H PRN IV SBP > 170 03/06/25 19:00 04/05/25 18:59 Lactulose (Constulose 20gm/ 30ml Udcup) 20 gm BID PRN PO CONSTIPATION 03/05/25 21:00 04/04/25 20:59 Methylprednisolone Sodium Succinate (Solu-medROL 40MG) 40 mg Q8H IVP 03/06/25 03:30 04/05/25 03:29 03/07/25 11:44 40 MG Morphine Sulfate (morPHINE 2MG SYG) 2 mg Q4H PRN IVP SEVERE PAIN (7-10) 03/05/25 21:30 03/12/25 21:29 Nicardipine HCl 25 mg/Sodium Chloride 250 ml @ 0 mls/hr PROTOCOL IV 03/05/25 21:00 03/06/25 19:07 DC 03/06/25 06:39 50 MLS/HR Ondansetron HCl (zoFRAN 4MG INJ) 4 mg Q6H PRN IV NAUSEA/VOMITING 03/05/25 21:00 04/04/25 20:59 Pantoprazole Sodium (PROTonix 40MG INJ) 40 mg DAILY IV 03/06/25 09:00 04/05/25 08:59 03/07/25 11:44 40 MG Piperacillin Sod/ Tazobactam Sod (Zosyn 3.375gm+NS 50ml) 3.375 gm Q12H IV 03/05/25 21:30 03/15/25 21:29 03/07/25 11:45 3.375 GM Sodium Chloride 250 ml @ 0 mls/hr AD IV 03/05/25 23:00 04/04/25 22:59 Sodium Chloride 1,000 ml @ 0 mls/hr ONCE IV 03/05/25 23:00 04/04/25 22:59 03/06/25 02:53 100 MLS/HR Vancomycin HCl 100 ml @ 100 mls/hr QTUTHSA[DIALYSIS] IV 03/08/25 16:00 03/18/25 15:59 Vancomycin HCl (Vancomycin Protocol) 1 each AD IV 03/06/25 18:30 03/20/25 18:29 DIAGNOSTICS / RADIOLOGY: PATIENT: LEONOR DOMINIQUE MR#: [id number] : 1965 SEX: F AGE: 60 LOCATION: [facility] ORDER 23 STATUS: ADM IN REPORT#: [id number] SERVICE 20 REASON: heart failure? ORDERING PHYSICIAN: SUZANNE HILL PROCEDURE: ECHO CMP - ECHO 2-D COMPLETE APPROVED REPORT EXAM: Two-dimensional and M-mode echocardiogram with Doppler and color Doppler. INDICATION ICD: Heart Failure 2D Dimensions RVDd 3.2 cm LVEF(%) 42.5 (>50%) LVED Vol(simp.) 79.0 mL IVSd 1.3 (0.7-1.1cm) FS(%) 20 % LVES Vol(simp.) 30.1 mL LVDd 3.2 (3.8-5.6cm) LA (2D) 3.5 (1.6-4.0cm) LVEF(%, simp.) 62 % PWd 1.6 (0.7-1.1cm) Ao Root(2D) 2.4 (2.0-3.7cm) LA ESV INDEX (BP) 39.23 mL/m2 LVDs 2.6 (2.5-4.0cm) LVOT diam 1.7 (1.8-2.4cm) IVC diam 1.6 cm Deformation Strain Apical 4 -13.2 % Apical 2 -12.4 % Apical 3 -14.9 % Global Strain -13.5 % M-Mode Dimensions EPSS 1.5 cm LA (MM) 3.7 (1.6-4.0cm) Ao Root(MM) 2.6 (2.0-3.7cm) Aortic Valve AoV Vmax 2.5 m/s Ao Peak GR 24.7 mmHg LVOT Vmax 1.5 m/s AoV VTI 0.4 m Ao Mean GR 12.4 mmHg LVOT VTI 0.29 m DANIEL (VMAX) 1.40 cm2 DANIEL (VTI) 1.5 cm2 Mitral Valve MV E Vmax 125.8 cm/s DECEL Time 157 ms MV A Vmax 118.0 cm/s P 1/2 T 42 ms E/A ratio 1.1 MVA (PHT) 5.2 cm2 TDI E/E' Medial 22.5 E/E' Lateral 21.5 Medial E' Peak V 5.59 cm/s Lateral E' Peak V 5.86 cm/s Pulmonary Valve PV Vmax 1.8 m/s PV VTI 0.35 m PV Mean GR 6.5 mmHg PV Peak GR 12.8 mmHg Tricuspid Valve TR Vmax 3.2 m/s RAP (EST) 8 mmHg RVSP 57.3 mmHg TR Peak GR 49.3 mmHg Left Ventricle The left ventricle is normal size. There is normal LV segmental wall motion. Mild to moderate concentric left ventricular hypertrophy. Global longitudinal strain as well as left ventricular wall thickness are concerning for possible amyloid Clinical correlation recommended LVEF is 60-65%. 3D LVEF 60-65%. Stage II diastolic dysfunction. Right Ventricle The right ventricle is normal size. The right ventricular systolic function is normal. Atria The left atrium size is normal. The right atrium size is normal. Aortic Valve The aortic valve is normal in structure. No aortic regurgitation is present. There is no aortic valvular stenosis. Mitral Valve The mitral valve is normal in structure. Mitral regurgitation is trace. There is no mitral valve stenosis. Tricuspid Valve The tricuspid valve is normal in structure. There is mild to moderate tricuspid valve regurgitation noted, RVSP 57mmHg. Pulmonic Valve The pulmonary valve is normal in structure. There is trace pulmonic valvular regurgitation. Great Vessels The aortic root is normal in size. The IVC is normal in size and collapses >50% with inspiration. Pericardium There is small pericardial effusion. No echo indications of pericardial tamponade. Conclusion Mild to moderate concentric left ventricular hypertrophy. LVEF is 60-65%. 3D LVEF 60-65%. Stage II diastolic dysfunction. There is mild to moderate tricuspid valve regurgitation noted, RVSP 57mmHg. There is small pericardial effusion. No echo indications of pericardial tamponade. Mild to moderate concentric left ventricular hypertrophy. Global longitudinal strain as well as left ventricular wall thickness are concerning for possible amyloid Clinical correlation recommended DICTATED BY: SHANIA VAZQUEZ MD DATE: 03/07/25 0731 ELECTRONICALLY SIGNED BY: SHANIA VAZQUEZ MD DATE: 03/07/25 1522 ASSESSMENT: Acute hypoxemic respiratory failure, POA Fluid overload, POA Hypertensive emergency, POA Sepsis, POA Leukocytosis, POA hyperkalemia, POA Diabetes mellitius type2 PLAN: Acute hypoxemic respiratory failure: Chest x-ray showed small to moderate pleural effusion Supplemental oxygen to maintain O2 saturation greater 92%. Solu-Medrol 125 mg IV times 1 Continue Solu-Medrol at 40 mg IV every 8 hours. Echo was done that showed LVEF of 60-65%. Stage II diastolic dysfunction. There is mild to moderate tricuspid valve regurgitation noted, RVSP 57mmHg. There is small pericardial effusion. No echo indications of pericardial tamponade. Mild to moderate concentric left ventricular hypertrophy. Global longitudinal strain as well as left ventricular wall thickness are concerning for possible amyloid Fluid overload, ESRD on H/D. Creatinine on arrival was 12.7 and BUN was 91 Patient is being followed by Nephrology Service No hemodialysis was planned for today Monitor intake and output every shift. Weight patient daily. 1500 mL daily fluid restriction. Avoid nephrotoxic agents when possible. Renally dose all medications when possible, Check BNP, follow up with the results Hypertensive emergency: Continue Cardene drip per emergency room monitors. The patient takes amlodipine at home, and the medication was reconciled. Today the blood pressure was 118/47 Sepsis, leukocytosis: Patient presents with tachypnea, tachycardia, leukocytosis meeting clinical sepsis criteria. Decided against IV fluid resuscitation given patient's renal status and current fluid overload. Empiric antibiotic therapy with Zosyn -Day 2 Added vancomycin- day 2 and doxycycline- day 2 Lactic acid was 2.2 and procalcitonin was 0.3. Hyperkalemia (Resolved): Patient received hyperkalemia cocktail in the emergency department. (albuterol treatment, calcium chloride, insulin 5 units IV). After hemodialysis repeat potassium was 3.7 Today potassium is 4.8 GI prophylaxis, Protonix DVT prophylaxis, heparin PHYSICIAN STATEMENT I was present with the resident during the History and Physical exam and I have reviewed the resident's note. This case was discussed with the resident and I agree with the history, physical exam and medical decision making as documented. Additions/exceptions/observations were directly added to the notes. Yogesh Dumont MD, SYED M MD Mar 07, 2025 13:50
[2025-03-07 14:13] LABS: NUCLEATED RED BLOOD CELLS 0.0 % (0.0-0.19); PLATELET COUNT (AUTO) 246.0 K/uL (130-400); RED BLOOD CELL COUNT(AUTO) 3.13 MIL/uL (4.00-5.50); RED CELL DISTRIBUTION WIDTH 17.5 % (11.0-15.5); WHITE BLOOD COUNT (AUTO) 13.6 K/uL (4.8-10.8)
[2025-03-07 14:14] LABS: HEPATITIS B CORE AB TOTAL Non-Reactive (Nonreactive); HEPATITIS B SURFACE ANTIBODY Negative (Reactive)
[2025-03-07] MEDS: amLODIPine 5 MG TAB PO SCH (14:35)
--- NOTE | 2025-03-07 15:07 | HMCIMG ---
EXAM: US Duplex Right Upper Extremity Veins. CLINICAL HISTORY: Right upper extremity pain and swelling ??? 2 days. Evaluate for deep venous thrombosis (DVT). TECHNIQUE: Real-time ultrasound scan of the veins of the right upper extremity with color Doppler flow, spectral waveform analysis and compression. COMPARISON: Left upper extremity. FINDINGS: VEINS: Subclavian vein: Patent. Normal compressibility (where assessable), color flow, and phasic spectral Doppler. Axillary vein: Patent. Fully compressible, with normal color flow and augmentation response. Brachial vein: Patent. Fully compressible, with normal venous flow and augmentation. Cephalic vein: Patent. Fully compressible, normal color Doppler flow. Basilic vein: Patent. Fully compressible, normal color Doppler flow. Subclavian, axillary, brachial, cephalic, and basilic veins: Patent with normal flow characteristics. SOFT TISSUES: No acute finding. IMPRESSION: 1. No evidence of right upper extremity deep venous thrombosis. 2. All evaluated deep and superficial veins demonstrate normal compressibility, color, and augmentation. /[place]
--- NOTE | 2025-03-07 15:22 | HMCSR ---
APPROVED REPORT EXAM: Two-dimensional and M-mode echocardiogram with Doppler and color Doppler. INDICATION ICD: Heart Failure 2D Dimensions RVDd3.2 cmLVEF(%)42.5 (>50%)LVED Vol(simp.)79.0 mL IVSd1.3 (0.7-1.1cm)FS(%)20 %LVES Vol(simp.)30.1 mL LVDd3.2 (3.8-5.6cm)LA (2D)3.5 (1.6-4.0cm)LVEF(%, simp.)62 % PWd1.6 (0.7-1.1cm)Ao Root(2D)2.4 (2.0-3.7cm)LA ESV INDEX (BP)39.23 mL/m2 LVDs2.6 (2.5-4.0cm)LVOT diam1.7 (1.8-2.4cm) IVC diam1.6 cm Deformation Strain Apical 4-13.2 % Apical 2-12.4 % Apical 3-14.9 % Global Strain-13.5 % M-Mode Dimensions EPSS1.5 cm LA (MM)3.7 (1.6-4.0cm) Ao Root(MM)2.6 (2.0-3.7cm) Aortic Valve AoV Vmax2.5 m/Nancy Peak GR24.7 mmHgLVOT Vmax1.5 m/s AoV VTI0.4 mAo Mean GR12.4 mmHgLVOT VTI0.29 m DANIEL (VMAX)1.40 cm2AVA (VTI) 1.5 cm2 Mitral Valve MV E Hevc159.8 cm/sDECEL Yiby847 ms MV A Zqjy611.0 cm/sP 1/2 T42 ms E/A ratio1.1MVA (PHT)5.2 cm2 TDI E/E' Zuxofc08.5E/E' Wsdfuqo60.5 Medial E' Peak V5.59 cm/sLateral E' Peak V5.86 cm/s Pulmonary Valve PV Vmax1.8 m/sPV VTI0.35 mPV Mean GR6.5 mmHg PV Peak GR12.8 mmHg Tricuspid Valve TR Vmax3.2 m/sRAP (EST) 8 wyWrLUCV58.3 mmHg TR Peak GR49.3 mmHg Left Ventricle The left ventricle is normal size. There is normal LV segmental wall motion. Mild to moderate concent ashley left ventricular hypertrophy. Global longitudinal strain as well as left ventricular wall thickne ss are concerning for possible amyloid Clinical correlation recommended LVEF is 60-65%. 3D LVEF 60-65 %. Stage II diastolic dysfunction. Right Ventricle The right ventricle is normal size. The right ventricular systolic function is normal. Atria The left atrium size is normal. The right atrium size is normal. Aortic Valve The aortic valve is normal in structure. No aortic regurgitation is present. There is no aortic valvu lar stenosis. Mitral Valve The mitral valve is normal in structure. Mitral regurgitation is trace. There is no mitral valve sten osis. Tricuspid Valve The tricuspid valve is normal in structure. There is mild to moderate tricuspid valve regurgitation n oted, RVSP 57mmHg. Pulmonic Valve The pulmonary valve is normal in structure. There is trace pulmonic valvular regurgitation. Great Vessels The aortic root is normal in size. The IVC is normal in size and collapses >50% with inspiration. Pericardium There is small pericardial effusion. No echo indications of pericardial tamponade. Conclusion Mild to moderate concentric left ventricular hypertrophy. LVEF is 60-65%. 3D LVEF 60-65%. Stage II diastolic dysfunction. There is mild to moderate tricuspid valve regurgitation noted, RVSP 57mmHg. There is small pericardial effusion. No echo indications of pericardial tamponade. Mild to moderate concentric left ventricular hypertrophy. Global longitudinal strain as well as left ventricular wall thickness are concerning for possible amyloid Clinical correlation recommended
--- NOTE | 2025-03-07 22:38 | PN ---
[facility] PROGRESS NOTE Date Patient Seen: Mar 07, 2025 Time of Visit: 22:34 Primary Care Physician: Self Referral Outpatient Specialists: Inpatient Consults: Dr Powers, Dr Church, Attending Yogesh Hunt PROBLEM LIST: Acute hypoxemic respiratory failure, POA, improved ESRD in need of HD POA R distal lateral fibular fracture on XR 03/07/25 Hypertensive emergency, POA, resolved Sepsis, POA Chronica anemia from CKD POA Rt lower lobe pneumonia POA ( R/O flu and covid) [id number] acute heart failure POA (pending 2D echo) Electrolyte derangement (hyperkalemia,Hypocalcemia, Hypermagnesemia) POA, resolving Hyperglycemia in the presence of T2DM POA INTERVAL HISTORY: Patient evaluated at bedside with multiple family members present. She is currently on room air, she has received a round of hemodialysis emergently upon admission as well as scheduled for today but due to the patient's severe hyperkalemia on admission. Patient's family with several questions at bedside which were answered. Patient states that she did have a fall at home in which she fell on her ankle and knee, knee contusion present on physical exam. Right ankle x-ray is not been read by radiology yet but does appear to have a small distal lateral fibular fracture, knee x-ray appears to be within normal limits. Primary team has consulted Orthopedic surgery for recommendations. Patient is no longer in critical care status and has stabilized. At this time critical Care Services will sign off the case. Thank you for allowing us to participate in the care of this patient. REVIEW OF SYSTEMS: Const: no fever, fatigue, or weight changes Eyes: no recent vision problems ENT: No congestion, ear pain, or sore throat C/V: no chest pain, palpitations or edema Resp: No cough, SOB on exertion,. GI: No abdominal pain, nausea, vomiting, constipation, or diarrhea : No incontinence of or dyuria M/S: No joint or pain swelling Skin: No rash Neuro: no headache, focal numbness, or weakness, dizziness or seizures Psych: no depression or anxiety Heme: no abnormal bruising or bleeding Lymph: no swollen glands PHYSICAL EXAM: GENERAL: alert, weak, awake oriented x 3 HEENT: EOMI, Sclera non icteric, moist mucosa NECK: Supple, no JVD, trachea midline LUNGS: Diminished breath sounds bilaterally. No wheezes HEART: Regular rate and rhythm. Normal S1 and S2, without murmurs ABD: Abdomen soft, nontender. Bowel sounds present EXT: No clubbing cyanosis or edema NEURO: Alert and oriented to person, follows commands Vital Signs (last 8hr) Date Time Temp Pulse Resp B/P (MAP) Pulse Ox O2 Delivery O2 Flow Rate FiO2 03/07/25 20:00 98.6 99 18 156/80 94 Room Air 03/07/25 18:42 155/72 03/07/25 18:30 97 20 03/07/25 18:30 97 18 N/A Room Air 21 03/07/25 17:02 99.9 99 18 169/96 95 Room Air LABS: Hematology Labs: Test 03/07/25 14:08 03/06/25 03:20 Range/Units White Blood Count 13.6 H 4.8-10.8 K/uL Red Blood Count 3.13 L 4.00-5.50 MIL/uL Hemoglobin 9.2 L 12.0-16.0 g/dL Hematocrit 27.3 L 36-48 % Mean Corpuscular Volume 87.2 79-99 fL Mean Corpuscular Hemoglobin 29.4 27.0-33.0 pg Mean Corpuscular Hemoglobin Concent 33.7 32.0-36.0 g/dL Red Cell Distribution Width 17.5 H 11.0-15.5 % Platelet Count 246 130-400 K/uL Mean Platelet Volume 11.4 H 7.5-10.5 fL Nucleated Red Blood Cells 0.0 0.0-0.19 % Immature Granulocyte % (Auto) 0.5 0-1 % Neutrophils (%) (Auto) 89.3 H 40.0-77.0 % Lymphocytes (%) (Auto) 3.9 L 21.0-51.0 % Monocytes (%) (Auto) 5.9 3.0-13.0 % Eosinophils (%) (Auto) 0.0 0.0-8.0 % Basophils (%) (Auto) 0.4 0.0-5.0 % Neutrophils # (Auto) 11.3 H 1.8-7.7 K/uL Lymphocytes # (Auto) 0.5 L 1.0-4.8 K/uL Monocytes # (Auto) 0.8 0.1-1.0 K/uL Eosinophils # (Auto) 0.00 0.00-0.70 K/uL Basophils # (Auto) 0.05 0.00-0.20 K/uL Absolute Immature Granulocyte (auto 0.06 0-1 K/uL Chemistry Labs: Test 03/07/25 19:44 03/07/25 06:44 03/06/25 03:20 Range/Units Whole Blood Glucose 255 H 70-110 MG/DL Sodium Level 135 L 136-145 mmol/L Potassium Level 4.8 3.5-5.1 mmol/L Chloride Level 93 L 101-111 mmol/L Carbon Dioxide Level 27 21-32 mmol/L Blood Urea Nitrogen 38 H 7-18 mg/dL Creatinine 5.6 H 0.5-1.0 mg/dL Glomerular Filtration Rate Calc 8 >90 mL/min Random Glucose 227 H 70-105 mg/dL Total Calcium 8.9 8.5-10.1 mg/dL Phosphorus Level 5.9 H 2.5-4.9 mg/dL Magnesium Level 2.40 1.80-2.40 mg/dL Troponin I High Sensitivity 126 *H 4-50 ng/L Lactic Acid Level 1.7 0.8-2.5 mmol/L DIAGNOSTICS / RADIOLOGY RESULTS: [ ] PLAN NEURO: Minimize central acting medications as possible. Maintain fall precautions, adequate lighting during the day PULMONARY: Supplemental 02 as needed. Maintain aspiration precautions at all times CARDIOVASCULAR: Follow hemodynamics. Vital signs per facility protocol GI & NUTRITION: Continue with nutritional support. Continue stool softeners and laxatives as needed. KIDNEYS & ELECTROLYTES: Strict monitoring of intake, output and overall fluid balance. Avoid nephrotoxic medications to the extent possible. Medications to be dosed according to renal function. Monitor electrolytes and replace as needed ENDOCRINE: Maintain blood glucose between 100-180 at all times. Hypoglycemia protocol in place INFECTIOUS DISEASE: Trend temperature, WBC and procalcitonin level Follow cultures, deescalate antibiotics as soon as possible. Panculture if new onset fever ONCOLOGY/HEMATOLOGY/COAGULATION: Monitor for s/s of bleeding Monitor hemoglobin, coagulation studies as needed SKIN: Pressure ulcer prevention per facility protocol Specialty mattress ORTHO/REHAB: Continue PT/OT Prophylaxis: Continue GI and DVT prophylaxis Code Status: Full Resuscitation Disposition: TBD Other: Total patient care time exceeds 35 minutes excluding all procedures. MARIELA SIERRA Mar 07, 2025 22:38
[2025-03-08] VITALS (24 sets, daily range): BP systolic 146–185; BP diastolic 55–100; PULSE 72–100; RESP 14–20; TEMP 98–98.5; O2SAT 94–98
[2025-03-08 06:27] LABS: CREATININE 7.1 mg/dL (0.5-1.0); GLOMERULAR FILTR. RATE CALC 6.0 mL/min (>90); GLUCOSE,RANDOM 231.0 mg/dL (70-105); SODIUM SERUM 135.0 mmol/L (136-145); UREA NITROGEN, BLOOD 57.0 mg/dL (7-18)
[2025-03-08 07:20] LABS: NUCLEATED RED BLOOD CELLS 0.0 % (0.0-0.19); PLATELET COUNT (AUTO) 255 K/uL (130-400); RED BLOOD CELL COUNT(AUTO) 3.13 MIL/uL (4.00-5.50); RED CELL DISTRIBUTION WIDTH 17.2 % (11.0-15.5); WHITE BLOOD COUNT (AUTO) 14.6 K/uL (4.8-10.8)
--- NOTE | 2025-03-08 07:51 | HMCIMG ---
EXAM: CR right Ankle, 3 views. CLINICAL HISTORY: Swelling. COMPARISON: None provided. FINDINGS: Mildly displaced oblique fracture involving the lateral malleolus. Moderate associated soft tissue edema around the ankle joint, more prominent over the lateral malleolus. Small plantar calcaneal spur and small insertional enthesophyte at the site of the attachment of the Achilles tendon and the posterior aspect of the calcaneus. No aggressive appearing osseous lesion. Joint spaces are within normal limits. No radiographic evidence of joint effusion. Vascular calcifications are identified. IMPRESSION: Mildly displaced oblique fracture involving the lateral malleolus. Moderate associated soft tissue edema around the ankle joint, more prominent over the lateral malleolus. Small plantar calcaneal spur and small insertional enthesophyte at the site of the attachment of the Achilles tendon and posterior aspect of the calcaneus. /[place]
--- NOTE | 2025-03-08 07:53 | HMCIMG ---
EXAM: CR Right Knee, 3 views. CLINICAL HISTORY: PAIN. COMPARISON: None provided. FINDINGS: No acute fracture or aggressive appearing osseous lesion. Joint spaces are within normal limits. Minimal suprapatellar knee joint effusion. The soft tissues are unremarkable. IMPRESSION: No acute osseous abnormality. Minimal suprapatellar knee joint effusion. /[place]
[2025-03-08 08:28] LABS: PHOSPHORUS 7.6 mg/dL (2.5-4.9)
[2025-03-08 08:38] LABS: LYMPHOCYTES % (MANUAL) 1 % (22-44); MONOCYTES % (MANUAL) 3 % (2-9); SEGMENTED NEUTROPHILS % 96 % (40-70)
[2025-03-08 08:42] LABS: MAN.DIFF COMMENT-IMPRESSION MANUAL DIFFERENTIAL; PLATELET MORPHOLOGY COMMENT ADEQUATE; WBC MORPHOLOGY HYPERSEGMENT NEUT 2+
--- NOTE | 2025-03-08 09:00 | DS ---
REASON FOR CONSULTATION: Right ankle fracture. HISTORY OF PRESENT ILLNESS: A 60-year-old female came to the emergency room in respiratory distress. She has end-stage renal disease. She gets dialysis in ____ and was admitted because of the shortness of breath and found to have an ankle fracture. She reports falling on Wednesday, has some minor ankle pain by her report. PRIOR MEDICAL HISTORY: Hypertension, end-stage renal disease, and diabetes type 2. PAST SURGICAL HISTORY: She has x 4 and had a right chest catheter placement. SOCIAL HISTORY: She does not smoke, drink, or do drugs. ALLERGIES: She has no known drug allergies. MEDICATIONS: In the chart. PHYSICAL EXAMINATION: GENERAL: On exam, she is awake. She is alert. She is resting in bed. She is in no acute distress. She speaks Armenian. EXTREMITIES: Her right lower extremity has no major edema. She has no wounds. She is minimally tender to palpation over the lateral malleolus. She is nontender at the medial side. She can flex and extend her toes and ankles without difficulty. She can flex and extend her knee without difficulty. She has no effusion. Her calf is nontender to palpation. X-RAYS: X-rays were reviewed and showed a nondisplaced Bai A ankle fracture. IMPRESSION: Bai A ankle fracture. PLAN: I think she should be placed into a boot. She does not need any operative fixation. She can be weightbearing as tolerated in the boot for about 4-6 weeks, and she can follow up with me in 2 weeks' postop. TID: [id number] RECEIPT: [id number]
--- NOTE | 2025-03-08 16:41 | PN ---
[facility] PROGRESS NOTE Date of Service: Mar 08, 2025 Time of Service: 16:31 SUBJECTIVE: The patient is a 60-year-old female with past medical history of diabetes, hypertension in ESRD on hemodialysis since 1 year. The patient has hemodialysis in [place] once every week. The patient came to the ER with complain of severe respiratory distress after missing her dialysis appointment. On arrival the chest x-ray showed small to moderate pleural effusion. Patient's creatinine was 12.7, BUN 91, potassium 6.1, lactic acid 2.2, and procalcitonin 0.13. On arrival, the patient's blood pressure was 261/134, respiratory rate 26 and pulse rate was 101. She was started on 15 L of oxygen maintaining O2 saturation of 100%. Due to her high blood pressure, the patient was started on Cardene drip and Nephrology was consulted and they ordered for emergency dialysis. 03/06/2025: The patient speaks Syrian, therefore, a tile and marble installer was used to talk with the patient. The patient had dialysis overnight and today her creatinine was 7.0 and potassium dropped down to 3.7. Her blood pressure was 157/72 and she was continued a Cardene drip. Patient takes amlodipine at home which was reconciled and will be started once Cardene drip. Patient's son was concerned about her health and we answered all his questions and guided him regarding dialysis and the importance of having regular dialysis at least 3 times a week and to never miss her dialysis. 03/07/2025: The patient speaks Syrian, therefore, a tile and marble installer was used to talk with the patient. The patient did not complain of shortness of breath or chest pain. The patient was able to remember her name and date of . The patient is not planned for hemodialysis today per Nephrology. Patient's family complain the patient had a fall on her right knee and then the knee is swollen. The patient herself did not complain of any pain or difficulty in movement. An x-r ay of the ankle and the knee was performed. We are awaiting the results. Today her creatinine is 5.6 and potassium is 4.8 03/08/2025: The patient speaks Syrian, therefore, a tile and marble installer was used to talk with the patient. The patient did not complain of shortness of breath or chest pain. Knee x-ray was nonsignificant but the ankle x-ray showed mildly displaced oblique fracture involving the lateral malleolus. Orthopedics were consulted and recommended no operative fixation. They also recommended a boot to be placed and that she can be weight-bearing as tolerated in the boot for about 4-6 weeks and then she can follow up with Orthopedic in 2 weeks. She is planned for hemodialysis session today REVIEW OF SYSTEMS CONSTITUTIONAL: Denies fevers, chills, or night sweats. No unintentional weight loss reported. NEUROLOGICAL: Denies headache, amaurosis fugax, motor weakness, sensory deficit, vertigo/spinning sensation, gait abnormalities, or tremors. ENT: No hearing loss, otalgia, otorrhea, rhinitis, rhinorrhea, hoarseness, or sore throat. CARDIOVASCULAR: Denies any exertional angina, dyspnea on exertion, orthopnea, paroxysmal nocturnal dyspnea, palpitations, life-threatening arrhythmias, claudication. PULMONARY: Denies any shortness of breath, cough, phlegm/sputum, hemoptysis, pleuritic chest pain. SLEEP: Denies morning headaches, daytime somnolence or napping. Denies difficulty falling asleep, staying asleep, waking from sleep. Denies knowledge of snoring. GASTROINTESTINAL: Denies any type of dysphagia to either liquids or solids. Denies nausea, vomiting, pyrosis, early satiety, abdominal pain, diarrhea, constipation, or changes in stool consistency or caliber. Denies coffee-ground emesis, hematemesis, hematochezia, or melanotic stools. GENITOURINARY: Denies frequency, urgency, nocturia, hematuria or incontinence (Storage/Irritative symptoms.) Low urinary stream, straining to void, urinary intermittency or hesitancy, splitting of the voiding stream, terminal dribbling. ESRD ENDOCRINOLOGIC: Denies polyuria, polydipsia, polyphagia or heat/cold intolerances. PHYSICAL EXAM GENERAL APPEARANCE: The patient is awake, alert, and oriented, in no acute cardiopulmonary distress. Patient is on oxygen. NEUROLOGICAL: Cranial nerves II-XII grossly intact. Motor is 5/5 in bilateral upper and lower extremities proximal to distal. No sensory deficits. HEENT: Face is symmetric. Pupils are equal and reactive. Extraocular movements are intact. NECK: Supple. No JVD. No thyromegaly. No submental, submandibular, pre- /postauricular, occipital or supraclavicular lymphadenopathy. CHEST: Normal chest expansion. No Telemetry. CARDIOVASCULAR: Regular. S1 and S2 normal. No appreciable rubs, murmurs or gallops. ABDOMEN: Soft, nontender, and nondistended. There is no rebound, voluntary guarding, or rigidity. Extremities : Right ankle swelling Vital Signs (last 8hr) Date Time Temp Pulse Resp B/P (MAP) Pulse Ox O2 Delivery O2 Flow Rate FiO2 03/08/25 16:04 98.4 94 16 148/80 94 Room Air 03/08/25 11:36 96 20 03/08/25 11:36 18 N/A Room Air 21 03/08/25 11:24 98.4 94 17 170/88 94 Room Air LABS: Laboratory: Test 03/08/25 15:52 03/08/25 06:03 03/07/25 06:44 Range/Units Whole Blood Glucose 224 H 70-110 MG/DL White Blood Count 14.6 H 4.8-10.8 K/uL Red Blood Count 3.13 L 4.00-5.50 MIL/uL Hemoglobin 9.2 L 12.0-16.0 g/dL Hematocrit 27.6 L 36-48 % Mean Corpuscular Volume 88.2 79-99 fL Mean Corpuscular Hemoglobin 29.4 27.0-33.0 pg Mean Corpuscular Hemoglobin Concent 33.3 32.0-36.0 g/dL Red Cell Distribution Width 17.2 H 11.0-15.5 % Platelet Count 255 130-400 K/uL Mean Platelet Volume 12.1 H 7.5-10.5 fL Segmented Neutrophils % 96 H 40-70 % Lymphocytes % (Manual) 1 L 22-44 % Monocytes % (Manual) 3 2-9 % Nucleated Red Blood Cells 0.0 0.0-0.19 % Differential Comment MANUAL DIFFERENTIAL White Cell Morphology Comment HYPERSEGMENT NEUT 2+ Platelet Morphology Comment ADEQUATE Red Blood Cell Morphology See comments Sodium Level 135 L 136-145 mmol/L Potassium Level 5.2 H 3.5-5.1 mmol/L Chloride Level 93 L 101-111 mmol/L Carbon Dioxide Level 28 21-32 mmol/L Blood Urea Nitrogen 57 H 7-18 mg/dL Creatinine 7.1 H 0.5-1.0 mg/dL Glomerular Filtration Rate Calc 6 >90 mL/min Random Glucose 231 H 70-105 mg/dL Total Calcium 8.7 8.5-10.1 mg/dL Phosphorus Level 7.6 H 2.5-4.9 mg/dL Magnesium Level 2.70 H 1.80-2.40 mg/dL Troponin I High Sensitivity 126 *H 4-50 ng/L Current Medications Medications (Trade) Dose Ordered Sig/Luis Route PRN Reason Start Time Stop Time Status Last Admin Dose Admin Acetaminophen (TYLenol 325MG TAB) 650 mg Q6H PRN PO TEMPERATURE GREATER THAN 101.5 03/05/25 21:00 04/04/25 20:59 Albuterol (DUOneb) 1 UDVIAL [id number] IH 03/06/25 00:00 04/05/25 00:00 03/08/25 11:43 1 UDVIAL Amlodipine Besylate (NorvASC 5MG TAB) 10 mg DAILY PO 03/07/25 09:00 04/06/25 08:59 03/08/25 10:48 10 MG Clonidine HCl (CATApres 0.1 mg TAB) 0.1 mg Q6H PRN PO ADMINISTER FOR SBP/DBP>170 03/06/25 11:00 04/05/25 10:59 03/06/25 14:54 0.1 MG Doxycycline Hyclate (Doxycycline Hyclate) 100 mg BID PO 03/06/25 21:00 03/16/25 20:59 03/08/25 10:49 100 MG Furosemide (LASix 100MG VIAL) 100 mg ONCE IVP 03/05/25 20:30 03/05/25 23:59 DC 03/05/25 20:35 100 MG Furosemide (LASix 100MG VIAL) 100 mg ONCE IVP 03/05/25 21:00 03/06/25 04:00 DC Guaifenesin (RobiTUSSin SUGAR-FREE 100 MG/ 5 ML UDCUP) 400 mg Q4H PRN PO cough 03/05/25 21:30 04/04/25 21:29 Heparin Sodium (Porcine) (HEParin 5,000 UNIT VIAL) 5,000 unit BID SQ 03/05/25 21:00 04/04/25 20:59 03/08/25 10:50 5,000 UNIT Heparin Sodium (Porcine) (HEParin 5,000 UNIT VIAL) 10,000 unit AD IRRIG 03/06/25 13:00 04/04/25 22:59 03/06/25 20:43 10,000 UNIT Heparin Sodium (Porcine) (HEParin 5,000 UNIT VIAL) 10,000 unit AD SQ 03/05/25 23:00 03/06/25 12:58 DC 03/06/25 02:52 10,000 UNIT Hydralazine HCl (APRESOLine 20MG INJ) 10 mg Q6H PRN IV For:SBP above 160;DBP above 90 03/05/25 21:00 04/04/25 20:59 03/07/25 17:01 10 MG Labetalol HCl (TRANdate 20MG SYG) 10 mg Q6H PRN IV SBP > 170 03/06/25 19:00 04/05/25 18:59 Lactulose (Constulose 20gm/ 30ml Udcup) 20 gm BID PRN PO CONSTIPATION 03/05/25 21:00 04/04/25 20:59 Methylprednisolone Sodium Succinate (Solu-medROL 40MG) 40 mg Q8H IVP 03/06/25 03:30 04/05/25 03:29 03/08/25 03:21 40 MG Morphine Sulfate (morPHINE 2MG SYG) 2 mg Q4H PRN IVP SEVERE PAIN (7-10) 03/05/25 21:30 03/12/25 21:29 03/07/25 20:52 2 MG Nicardipine HCl 25 mg/Sodium Chloride 250 ml @ 0 mls/hr PROTOCOL IV 03/05/25 21:00 03/06/25 19:07 DC 03/06/25 06:39 50 MLS/HR Ondansetron HCl (zoFRAN 4MG INJ) 4 mg Q6H PRN IV NAUSEA/VOMITING 03/05/25 21:00 04/04/25 20:59 03/07/25 20:51 4 MG Pantoprazole Sodium (PROTonix 40MG INJ) 40 mg DAILY IV 03/06/25 09:00 04/05/25 08:59 03/08/25 10:48 40 MG Piperacillin Sod/ Tazobactam Sod (Zosyn 3.375gm+NS 50ml) 3.375 gm Q12H IV 03/05/25 21:30 03/15/25 21:29 03/08/25 10:47 3.375 GM Sodium Chloride 250 ml @ 0 mls/hr AD IV 03/05/25 23:00 04/04/25 22:59 Sodium Chloride 1,000 ml @ 0 mls/hr ONCE IV 03/05/25 23:00 04/04/25 22:59 03/06/25 02:53 100 MLS/HR Vancomycin HCl 100 ml @ 100 mls/hr QTUTHSA[DIALYSIS] IV 03/08/25 16:00 03/18/25 15:59 Vancomycin HCl (Vancomycin Protocol) 1 each AD IV 03/06/25 18:30 03/20/25 18:29 DIAGNOSTICS / RADIOLOGY: PATIENT: LEONOR DOMINIQUE MR#: [id number] : 1965 SEX: F AGE: 60 LOCATION: [facility] ORDER 111 STATUS: ADM IN REPORT#: [id number] SERVICE [id number] REASON: swelling ORDERING PHYSICIAN: MARIELA SIERRA PROCEDURE: [id number] - ANKLE 2VWS RT EXAM: CR right Ankle, 3 views. CLINICAL HISTORY: Swelling. COMPARISON: None provided. FINDINGS: Mildly displaced oblique fracture involving the lateral malleolus. Moderate associated soft tissue edema around the ankle joint, more prominent over the lateral malleolus. Small plantar calcaneal spur and small insertional enthesophyte at the site of the attachment of the Achilles tendon and the posterior aspect of the calcaneus. No aggressive appearing osseous lesion. Joint spaces are within normal limits. No radiographic evidence of joint effusion. Vascular calcifications are identified. IMPRESSION: Mildly displaced oblique fracture involving the lateral malleolus. Moderate associated soft tissue edema around the ankle joint, more prominent over the lateral malleolus. Small plantar calcaneal spur and small insertional enthesophyte at the site of the attachment of the Achilles tendon and posterior aspect of the calcaneus. /[place] DICTATED BY: MAKI GOMEZ MD DATE: 03/08/25849 ELECTRONICALLY SIGNED BY: MAKI GOMEZ MD DATE: 03/08/25849 PATIENT: LEONOR DOMINIQUE MR#: [id number] : 1965 SEX: F AGE: 60 LOCATION: [facility] ORDER 30 STATUS: ADM IN REPORT#: [id number] SERVICE 1130 REASON: PAIN ORDERING PHYSICIAN: MARIELA SIERRA PROCEDURE: KNEE1 2VRT - KNEE/PATELLA 1-2VWS RT EXAM: CR Right Knee, 3 views. CLINICAL HISTORY: PAIN. COMPARISON: None provided. FINDINGS: No acute fracture or aggressive appearing osseous lesion. Joint spaces are within normal limits. Minimal suprapatellar knee joint effusion. The soft tissues are unremarkable. IMPRESSION: No acute osseous abnormality. Minimal suprapatellar knee joint effusion. /[place] DICTATED BY: MAKI GOMEZ MD DATE: 03/08/25852 ELECTRONICALLY SIGNED BY: MAKI GOMEZ MD DATE: 03/08/25852 ASSESSMENT: Acute hypoxemic respiratory failure, POA Fluid overload, POA Hypertensive emergency, POA Sepsis, POA Leukocytosis, POA hyperkalemia, POA Diabetes mellitius type2 PLAN: Acute hypoxemic respiratory failure: Chest x-ray showed small to moderate pleural effusion Supplemental oxygen to maintain O2 saturation greater 92%. Solu-Medrol 125 mg IV times 1 Continue Solu-Medrol at 40 mg IV every 8 hours. Echo was done that showed LVEF of 60-65%. Stage II diastolic dysfunction. There is mild to moderate tricuspid valve regurgitation noted, RVSP 57mmHg. There is small pericardial effusion. No echo indications of pericardial tamponade. Mild to moderate concentric left ventricular hypertrophy. Global longitudinal strain as well as left ventricular wall thickness are concerning for possible amyloid Fluid overload, ESRD on H/D. Creatinine on arrival was 12.7 and BUN was 91 Patient is being followed by Nephrology Service No hemodialysis was planned for today Monitor intake and output every shift. Weight patient daily. 1500 mL daily fluid restriction. Avoid nephrotoxic agents when possible. Renally dose all medications when possible Hypertensive emergency: Continue Cardene drip per emergency room monitors. The patient takes amlodipine at home, and the medication was reconciled. Today the blood pressure was 118/47 Sepsis, leukocytosis: Patient presents with tachypnea, tachycardia, leukocytosis meeting clinical sepsis criteria. Empiric antibiotic therapy with Zosyn -Day 3 Added vancomycin- day 3 and doxycycline- day 3 Hyperkalemia: Patient received hyperkalemia cocktail in the emergency department. (albuterol treatment, calcium chloride, insulin 5 units IV). After hemodialysis repeat potassium was 3.7 Today potassium is 5.2. Another session of hemodialysis planned for today Right ankle fracture: Knee x-ray was nonsignificant but the ankle x-ray showed mildly displaced oblique fracture involving the lateral malleolus. Orthopedics were consulted and recommended no operative fixation. They also recommended a boot to be placed and that she can be weight-bearing as tolerated in the boot for about 4-6 weeks and then she can follow up with Orthopedic in 2 weeks. GI prophylaxis, Protonix DVT prophylaxis, heparin PHYSICIAN STATEMENT I was present with the resident during the History and Physical exam and I have reviewed the resident's note. This case was discussed with the resident and I agree with the history, physical exam and medical decision making as documented. Additions/exceptions/observations were directly added to the notes. Yogesh Dumont MD, SYED M MD Mar 08, 2025 16:41
[2025-03-08] MEDS: 0.9%NACL 1000ML 1,000 ML IV SCH (20:54)
[2025-03-08] MEDS: VANCOMYCIN 500MG+NS 100ML 100 ML IV SCH (21:59)
--- NOTE | 2025-03-08 23:11 | PN ---
NEPHROLOGY NOTE SUBJECTIVE: This patient has renal failure. The patient has anemia. The patient has underlying acute hypoxic respiratory failure, fluid overload, severe hypertension, hypertensive emergency on admission, sepsis, hyperkalemia, and diabetes. The patient is having hyperkalemia again. This patient has an ankle fracture. The patient apparently does not qualify for dialysis in this country and has been going to [place] for intermittent dialysis. There is no dialysis scheduled she followed. No other associated findings. The patient has no other aggravating or relieving factor. The patient remains on broad-spectrum antibiotics. REVIEW OF SYSTEMS: CONSTITUTIONAL: No fever or chills. HEENT: With no headache. No oral ulcer, sore throat, or difficulty swallowing. RESPIRATORY: With no cough, expectoration or hemoptysis. CARDIOVASCULAR: No orthopnea or PND. GASTROINTESTINAL: Negative for nausea or vomiting. No diarrhea is reported. GENITOURINARY: Negative for dysuria or hematuria. DERMATOLOGICAL: No rashes, pruritus or skin lesions. ENDOCRINE: No polyuria, polydipsia, or polyphagia. PHYSICAL EXAMINATION: GENERAL: Shows pale, no other distress or deformities. Lying in bed. VITAL SIGNS: Blood pressure is around 171/92, pulse 88, respiratory rate is 16. HEENT: Head is atraumatic, normocephalic. Pupils are round and reactive to light. Sclerae are anicteric. Conjunctivae not pale. Oral mucosa is not dry. NECK: Supple. No masses or bruits. Thyroid is palpable. Neck has no bruits. CHEST: Shows equal thoracic percussion note being resonant in all areas. CARDIAC: Regular rhythm. No rub, no S3 or S4, no parasternal heave. ABDOMEN: No guarding, no tenderness. Bowel sounds are normoactive. LABORATORY DATA: We have reviewed available labs. The patient's calcium has gone up. Hemoglobin 9.2, white cell count 14.6. PROBLEMS: * Renal failure. * Anemia. * Hyperkalemia. * Underlying hyperglycemia. PLAN: Plan will be to continued monitoring. The patient is followed by Orthopedics for right ankle fracture. Intake, output, weight and overall status will be monitored. Nonsteroidal drugs to be avoided. Dose of medicine to be adjusted. Dialysis support for emergencies. She is unable to qualify for outpatient dialysis. We will consult with social media analyst on these issues. Meanwhile, low potassium, renal diet is advised. Contrast should be avoided and other medicine dosages should be adjusted. We have discussed with the team physician and continued followup. IV Dilaudid 0.5 mg every 6 hours can be used for pain. TID: [id number] RECEIPT: [id number]
[2025-03-09] VITALS (7 sets, daily range): BP systolic 149–161; BP diastolic 80–85; PULSE 80–101; RESP 17–20; TEMP 97.8–98.7; O2SAT 92–98
[2025-03-09 06:01] LABS: NUCLEATED RED BLOOD CELLS 0.0 % (0.0-0.19); PLATELET COUNT (AUTO) 278.0 K/uL (130-400); RED BLOOD CELL COUNT(AUTO) 3.56 MIL/uL (4.00-5.50); RED CELL DISTRIBUTION WIDTH 16.5 % (11.0-15.5); WHITE BLOOD COUNT (AUTO) 12.3 K/uL (4.8-10.8)
[2025-03-09 06:13] LABS: CREATININE 4.7 mg/dL (0.5-1.0); GLOMERULAR FILTR. RATE CALC 10.0 mL/min (>90); GLUCOSE,RANDOM 204.0 mg/dL (70-105); SODIUM SERUM 133.0 mmol/L (136-145); UREA NITROGEN, BLOOD 37.0 mg/dL (7-18)
[2025-03-09 07:25] LABS: COVID19 (SARS ANTIGEN RAPID) PRESUMPTIVE NEGATIVE (NEGATIVE)
[2025-03-09 07:27] LABS: INFLUENZA TYPE A Negative For Type A (NEGATIVE); INFLUENZA TYPE B Negative For Type B (NEGATIVE)
--- NOTE | 2025-03-09 15:31 | DS ---
Discharge Summary Hospital Course Summary: Patient Information: *Name: Vida Dominique *Date of : 1965 *Admission Date: 03/05/2025 *Discharge Date: 03/09/2025 Diagnosis: Acute hypoxemic respiratory failure Course in Hospital: The patient is a 60-year-old female with past medical history of diabetes, hypertension and ESRD on hemodialysis since 1 year. The patient has hemodialysis in [place] once every week. The patient came to the ER with complain of severe respiratory distress after missing her dialysis appointment. The patient speaks Faroese, therefore, a mini bar attendant was used to talk with the patient. On arrival the chest x-ray showed small to moderate pleural effusion. Patient's creatinine was 12.7, BUN 91, potassium 6.1, lactic acid 2.2, and procalcitonin 0.13. On arrival, the patient's blood pressure was 261/134, respiratory rate 26 and pulse rate was 101. She was started on 15 L of oxygen maintaining O2 saturation of 100%. Due to her high blood pressure, the patient was started on Cardene drip and Nephrology was consulted and they ordered for emergency dialysis. The patient had dialysis overnight and her creatinine reduced to 7.0 and potassium dropped down to 3.7. She was continued a Cardene drip. As the patient took amlodipine at home, it was reconciled and started once Cardene drip was stopped. During the course of hospitalization, patient's family complained that the patient had a fall on her right ankle at home and then the ankle is swollen. The patient herself did not complain of any pain or difficulty in movement. Knee x-ray was nonsignificant but the ankle x-ray showed mildly displaced oblique fracture involving the lateral malleolus. Orthopedics were consulted and recommended no operative fixation. They also recommended a boot to be placed and that she can be weight-bearing as tolerated in the boot for about 4-6 weeks and then she can follow up with Orthopedic in 2 weeks. The patient was treated with a boot and physical therapy had a session with the patient for ambulation with a boot. The patient had another hemodialysis session after which her creatinine was 4.7 and potassium was 4.6. The patient was discharged today and was counseled regarding the importance of having regular dialysis session and does emphasize that she does not miss her dialysis session. The patient communicated back that she understood and would comply. She was also recommended to follow with Orthopedic in 2 weeks. Procedures performed: CBC, CMP, CXR, Blood cultures, Venous Doppler, Ankle Xray, Knee Xray, Echocardiogram, BNP, Procalcitonin, Troponin, Lactic acid, Creatinine kinase Medications on Discharge: Home Meds Discharged to: Home Condition on Discharge: [employer] Coordinator(s): Nephrology PLAN: * The patient is being admitted to ICU. * IV Cardene drip can be given for blood pressure. * Urgent dialysis as tolerated. * DVT and GI prophylaxis. * IV Dilaudid or morphine for pain. * Continued followup on urine output, electrolytes, and overall status. * Aggressive diuresis can be given. * I discussed with other team physician. We have reviewed the external record, previous records in detail and continue to monitor closely. Condition is critical and guarded. The patient was seen several times. Orthopedic surgery I think she should be placed into a boot. She does not need any operative fixation. She can be weightbearing as tolerated in the boot for about 4-6 weeks, and she can follow up with me in 2 weeks' postop. Procedure(s): PATIENT: VIDA DOMINIQUE MR#: [id number] : 1965 SEX: F AGE: 60 LOCATION: [facility] ORDER 24 STATUS: ADM IN REPORT#: [id number] SERVICE 23 REASON: CHEST PAIN ORDERING PHYSICIAN: ZOEY LEZAMA MD PROCEDURE: CXR1VW - CHEST 1VW EXAM: CR Chest, 1 view CLINICAL HISTORY: Chest pain. COMPARISON: Chest radiograph dated 11/21/2024. FINDINGS: Small to moderate pleural effusions with mid to lower zone airspace disease and pulmonary edema bilaterally. Mild cardiomegaly. No pneumothorax. The right-sided dual-lumen catheter tip overlies the right atrium. No acute osseous abnormality. IMPRESSION: Small to moderate pleural effusions with mid to lower zone airspace disease and pulmonary edema bilaterally. Mild cardiomegaly. The right-sided dual-lumen catheter tip overlies the right atrium. Compared to the prior study, there is no significant interval change. /[facility] DICTATED BY: LIZETTE JAY Jr., MD DATE: 03/05/252236 ELECTRONICALLY SIGNED BY: LIZETTE JAY Jr., MD DATE: 03/05/252236 PATIENT: VIDA DOMINIQUE MR#: [id number] : 1965 SEX: F AGE: 60 LOCATION: [facility] ORDER 1 STATUS: ADM IN REPORT#: [id number] SERVICE 7 REASON: Right upper extremity pain and swelling ORDERING PHYSICIAN: ABRAM MILLER MD PROCEDURE: VENOUS UNI - US VENOUS DOPPLER UNILATERAL EXAM: US Duplex Right Upper Extremity Veins. CLINICAL HISTORY: Right upper extremity pain and swelling ??? 2 days. Evaluate for deep venous thrombosis (DVT). TECHNIQUE: Real-time ultrasound scan of the veins of the right upper extremity with color Doppler flow, spectral waveform analysis and compression. COMPARISON: Left upper extremity. FINDINGS: VEINS: Subclavian vein: Patent. Normal compressibility (where assessable), color flow, and phasic spectral Doppler. Axillary vein: Patent. Fully compressible, with normal color flow and augmentation response. Brachial vein: Patent. Fully compressible, with normal venous flow and augmentation. Cephalic vein: Patent. Fully compressible, normal color Doppler flow. Basilic vein: Patent. Fully compressible, normal color Doppler flow. Subclavian, axillary, brachial, cephalic, and basilic veins: Patent with normal flow characteristics. SOFT TISSUES: No acute finding. IMPRESSION: 1. No evidence of right upper extremity deep venous thrombosis. 2. All evaluated deep and superficial veins demonstrate normal compressibility, color, and augmentation. /[facility] DICTATED BY: ALEC BECK MD DATE: 03/07/251604 ELECTRONICALLY SIGNED BY: ALEC BECK MD DATE: 03/07/251604 PATIENT: VIDA DOMINIQUE MR#: [id number] : 1965 SEX: F AGE: 60 LOCATION: [facility] ORDER 1116 STATUS: ADM IN REPORT#: [id number] SERVICE 111 REASON: swelling ORDERING PHYSICIAN: MARIELA SIERRA PROCEDURE: [id number] - ANKLE 2VWS RT EXAM: CR right Ankle, 3 views. CLINICAL HISTORY: Swelling. COMPARISON: None provided. FINDINGS: Mildly displaced oblique fracture involving the lateral malleolus. Moderate associated soft tissue edema around the ankle joint, more prominent over the lateral malleolus. Small plantar calcaneal spur and small insertional enthesophyte at the site of the attachment of the Achilles tendon and the posterior aspect of the calcaneus. No aggressive appearing osseous lesion. Joint spaces are within normal limits. No radiographic evidence of joint effusion. Vascular calcifications are identified. IMPRESSION: Mildly displaced oblique fracture involving the lateral malleolus. Moderate associated soft tissue edema around the ankle joint, more prominent over the lateral malleolus. Small plantar calcaneal spur and small insertional enthesophyte at the site of the attachment of the Achilles tendon and posterior aspect of the calcaneus. /[facility] DICTATED BY: MAKI GOMEZ MD DATE: 03/08/25849 ELECTRONICALLY SIGNED BY: MAKI GOMEZ MD DATE: 03/08/25849 PATIENT: VIDA DOMINIQUE MR#: [id number] : 1965 SEX: F AGE: 60 LOCATION: [facility] ORDER 1131 STATUS: ADM IN REPORT#: [id number] SERVICE 1130 REASON: PAIN ORDERING PHYSICIAN: MARIELA SIERRA PROCEDURE: KNEE1 2VRT - KNEE/PATELLA 1-2VWS RT EXAM: CR Right Knee, 3 views. CLINICAL HISTORY: PAIN. COMPARISON: None provided. FINDINGS: No acute fracture or aggressive appearing osseous lesion. Joint spaces are within normal limits. Minimal suprapatellar knee joint effusion. The soft tissues are unremarkable. IMPRESSION: No acute osseous abnormality. Minimal suprapatellar knee joint effusion. /[facility] DICTATED BY: MAKI GOMEZ MD DATE: 03/08/25852 ELECTRONICALLY SIGNED BY: MAKI GOMEZ MD DATE: 03/08/25852 PATIENT: VIDA DOMINIQUE MR#: [id number] : 1965 SEX: F AGE: 60 LOCATION: [facility] ORDER 23 STATUS: ADM IN REPORT#: [id number] SERVICE 20 REASON: heart failure? ORDERING PHYSICIAN: SUZANNE HILL PROCEDURE: ECHO CMP - ECHO 2-D COMPLETE APPROVED REPORT EXAM: Two-dimensional and M-mode echocardiogram with Doppler and color Doppler. INDICATION ICD: Heart Failure 2D Dimensions RVDd 3.2 cm LVEF(%) 42.5 (>50%) LVED Vol(simp.) 79.0 mL IVSd 1.3 (0.7-1.1cm) FS(%) 20 % LVES Vol(simp.) 30.1 mL LVDd 3.2 (3.8-5.6cm) LA (2D) 3.5 (1.6-4.0cm) LVEF(%, simp.) 62 % PWd 1.6 (0.7-1.1cm) Ao Root(2D) 2.4 (2.0-3.7cm) LA ESV INDEX (BP) 39.23 mL/m2 LVDs 2.6 (2.5-4.0cm) LVOT diam 1.7 (1.8-2.4cm) IVC diam 1.6 cm Deformation Strain Apical 4 -13.2 % Apical 2 -12.4 % Apical 3 -14.9 % Global Strain -13.5 % M-Mode Dimensions EPSS 1.5 cm LA (MM) 3.7 (1.6-4.0cm) Ao Root(MM) 2.6 (2.0-3.7cm) Aortic Valve AoV Vmax 2.5 m/s Ao Peak GR 24.7 mmHg LVOT Vmax 1.5 m/s AoV VTI 0.4 m Ao Mean GR 12.4 mmHg LVOT VTI 0.29 m DANIEL (VMAX) 1.40 cm2 DANIEL (VTI) 1.5 cm2 Mitral Valve MV E Vmax 125.8 cm/s DECEL Time 157 ms MV A Vmax 118.0 cm/s P 1/2 T 42 ms E/A ratio 1.1 MVA (PHT) 5.2 cm2 TDI E/E' Medial 22.5 E/E' Lateral 21.5 Medial E' Peak V 5.59 cm/s Lateral E' Peak V 5.86 cm/s Pulmonary Valve PV Vmax 1.8 m/s PV VTI 0.35 m PV Mean GR 6.5 mmHg PV Peak GR 12.8 mmHg Tricuspid Valve TR Vmax 3.2 m/s RAP (EST) 8 mmHg RVSP 57.3 mmHg TR Peak GR 49.3 mmHg Left Ventricle The left ventricle is normal size. There is normal LV segmental wall motion. Mild to moderate concentric left ventricular hypertrophy. Global longitudinal strain as well as left ventricular wall thickness are concerning for possible amyloid Clinical correlation recommended LVEF is 60-65%. 3D LVEF 60-65%. Stage II diastolic dysfunction. Right Ventricle The right ventricle is normal size. The right ventricular systolic function is normal. Atria The left atrium size is normal. The right atrium size is normal. Aortic Valve The aortic valve is normal in structure. No aortic regurgitation is present. There is no aortic valvular stenosis. Mitral Valve The mitral valve is normal in structure. Mitral regurgitation is trace. There is no mitral valve stenosis. Tricuspid Valve The tricuspid valve is normal in structure. There is mild to moderate tricuspid valve regurgitation noted, RVSP 57mmHg. Pulmonic Valve The pulmonary valve is normal in structure. There is trace pulmonic valvular regurgitation. Great Vessels The aortic root is normal in size. The IVC is normal in size and collapses >50% with inspiration. Pericardium There is small pericardial effusion. No echo indications of pericardial tamponade. Conclusion Mild to moderate concentric left ventricular hypertrophy. LVEF is 60-65%. 3D LVEF 60-65%. Stage II diastolic dysfunction. There is mild to moderate tricuspid valve regurgitation noted, RVSP 57mmHg. There is small pericardial effusion. No echo indications of pericardial tamponade. Mild to moderate concentric left ventricular hypertrophy. Global longitudinal strain as well as left ventricular wall thickness are concerning for possible amyloid Clinical correlation recommended DICTATED BY: SHANIA VAZQUEZ MD DATE: 03/07/25 0731 ELECTRONICALLY SIGNED BY: SHANIA VAZQUEZ MD DATE: 03/07/25 1522 Assessment/Plan: ASSESSMENT: Acute hypoxemic respiratory failure, POA Fluid overload, POA Hypertensive emergency, POA Sepsis, POA Leukocytosis, POA hyperkalemia, POA Diabetes mellitius type2 Discharge Instructions: *Follow up with your primary care physician in 2 - 3 days after discharge. *Maintain punctuality with hemodialysis sessions and don't miss a session *Continue all medications as prescribed. Do not discontinue or change dosages without consulting your PCP. *Gradually resume normal activities as tolerated. *Continue a balanced diet . Reduce salt intake to help manage BP. *Seek immediate medical attention if you experience chest pain, SOB or severe headache. Home Medications: Active Scripts Amlodipine Besylate (Norvasc) 10 Mg Tablet, 1 TAB PO DAILY for 30 Days, #30 TAB 0 Refills Prov:YOGESH DUMONT MD 11/21/24 Continued Medications: Amlodipine Besylate (Norvasc) 10 Mg Tablet 1 TAB PO DAILY for 30 Days, #30 TAB 0 Refills Time spent arranging discharge: 1-30 minutes PHYSICIAN STATEMENT I was present with the resident during the History and Physical exam and I have reviewed the resident's note. This case was discussed with the resident and I agree with the history, physical exam and medical decision making as documented. Additions/exceptions/observations were directly added to the notes. Yogesh Dumont MD, SYED M MD Mar 09, 2025 15:31
--- NOTE | 2025-03-09 16:14 | NUR ---
DISCHARGE PT PIV DC'D PT AND VERBALIZED UNDERSTANDING OF DISCHARGE INSTRUCTIONS PT GATHERED AND TOOK ALL BELONGINGS PT AND HAD NO FURTHER QUESTIONS AT TIME OF DISCHARGE
--- NOTE | 2025-03-09 17:28 | PN ---
NEPHROLOGY PROGRESS NOTE Date/Time Patient Seen: Mar 09, 2025 SUBJECTIVE: This is a 60-year-old female with a past medical history of diabetes mellitus type 2, hypertension, end-stage renal disease, and hyperlipidemia. She does have occasionally dialysis in [place] The patient is now admitted with acute respiratory failure, severe hyperkalemia, severe hypertension. No other associated findings. No other aggravating or relieving factor. Ankle x-ray showed mildly displaced oblique fracture involving the lateral malleolus. Orthopedics were consulted and recommended no operative fixation. She tolerated dialysis difficulty yesterday Patient states pulmonary symptoms have improved Electrolytes are stable She continues on antibiotics Antihypertensive medications continue to be adjusted She was seen in the medical floor, in no acute distress Family at the bedside REVIEW OF SYSTEMS: GENERAL: Positive for generalized weakness NEUROLOGIC: Negative for any blurry vision, blind spots, double vision, facial asymmetry, dysphagia, dysarthria, hemiparesis, hemisensory deficits, vertigo, ataxia. HEENT: Negative for any head trauma, neck trauma, neck stiffness, photophobia, phonophobia, sinusitis, rhinitis. CARDIAC: Negative for any chest pain, dyspnea on exertion, paroxysmal nocturnal dyspnea, peripheral edema. PULMONARY: Negative for any shortness of breath, wheezing, COPD, or TB exposure. GASTROINTESTINAL: Negative for any abdominal pain, nausea, vomiting, bright red blood per rectum, melena. GENITOURINARY: Negative for any dysuria, hematuria, incontinence. INTEGUMENTARY: Negative for any rashes, cuts, insect bites. RHEUMATOLOGIC: Negative for any joint pains, photosensitive rashes, history of vasculitis or kidney problems. HEMATOLOGIC: Negative for any abnormal bruising, frequent infections or bleeding. Vital Signs (last 8hr) Date Time Temp Pulse Resp B/P (MAP) Pulse Ox O2 Delivery O2 Flow Rate FiO2 03/06/25 11:26 98.8 96 16 157/72 96 Nasal Cannula 5.0 03/06/25 11:11 95 16 158/75 97 03/06/25 10:57 90 18 N/Cannula Low lpm 5.0 40 03/06/25 10:57 90 20 03/06/25 10:56 95 14 158/77 97 03/06/25 10:41 91 15 161/74 99 03/06/25 10:26 92 15 167/78 97 03/06/25 10:11 91 12 159/74 97 03/06/25 09:26 92 15 152/61 95 03/06/25 09:11 92 27 157/80 94 Nasal Cannula 5.0 03/06/25 08:56 92 14 153/71 95 03/06/25 08:41 91 9 146/74 92 Nasal Cannula 5.0 03/06/25 08:26 88 16 142/70 96 03/06/25 08:11 87 14 151/63 97 Nasal Cannula 5.0 03/06/25 07:55 91 18 N/Cannula Low lpm 5.0 40 03/06/25 07:54 96 Nasal Cannula* 5 40 03/06/25 07:26 98.6 90 18 145/71 (95) 99 03/06/25 07:11 91 16 154/71 (98) 99 03/06/25 06:41 91 18 151/66 (94) 99 03/06/25 06:26 89 15 159/71 (100) 99 03/06/25 06:21 89 14 60 03/06/25 06:17 89 23 03/06/25 06:12 87 9 154/79 (104) 99 PHYSICAL EXAM: GENERAL: Alert and oriented x 3. No acute distress. Well-nourished. EYES: EOMI. Anicteric. HENT: Moist mucous membranes. No scleral icterus. No cervical lymphadenopathy. LUNGS: Clear to auscultation bilaterally. No accessory muscle use. CARDIOVASCULAR: Regular rate and rhythm. No murmur. No JVD. ABDOMEN: Soft, non-tender and non-distended. No palpable masses. EXTREMITIES: No edema. Non-tender. SKIN: No rashes or lesions. Warm. NEUROLOGIC: No focal neurological deficits. CN II-XII grossly intact, but not individually tested. PSYCHIATRIC: Cooperative. Appropriate mood and affect. Current Medications Medications (Trade) Dose Ordered Sig/Luis Route PRN Reason Start Time Stop Time Status Last Admin Dose Admin Acetaminophen (TYLenol 325MG TAB) 650 mg Q6H PRN PO TEMPERATURE GREATER THAN 101.5 03/05/25 21:00 04/04/25 20:59 Albuterol (DUOneb) 1 UDVIAL [id number] IH 03/06/25 00:00 04/05/25 00:00 03/06/25 10:58 1 UDVIAL Amlodipine Besylate (NorvASC 5MG TAB) 10 mg DAILY PO 03/07/25 09:00 04/06/25 08:59 Clonidine HCl (CATApres 0.1 mg TAB) 0.1 mg Q6H PRN PO ADMINISTER FOR SBP/DBP>170 03/06/25 11:00 04/05/25 10:59 Furosemide (LASix 100MG VIAL) 100 mg ONCE IVP 03/05/25 20:30 03/05/25 23:59 DC 03/05/25 20:35 100 MG Furosemide (LASix 100MG VIAL) 100 mg ONCE IVP 03/05/25 21:00 03/06/25 04:00 DC Guaifenesin (RobiTUSSin SUGAR-FREE 100 MG/ 5 ML UDCUP) 400 mg Q4H PRN PO cough 03/05/25 21:30 04/04/25 21:29 Heparin Sodium (Porcine) (HEParin 5,000 UNIT VIAL) 5,000 unit BID SQ 03/05/25 21:00 04/04/25 20:59 03/06/25 09:06 5,000 UNIT Heparin Sodium (Porcine) (HEParin 5,000 UNIT VIAL) 10,000 unit AD IRRIG 03/06/25 13:00 04/04/25 22:59 Heparin Sodium (Porcine) (HEParin 5,000 UNIT VIAL) 10,000 unit AD SQ 03/05/25 23:00 03/06/25 12:58 DC 03/06/25 02:52 10,000 UNIT Hydralazine HCl (APRESOLine 20MG INJ) 10 mg Q6H PRN IV For:SBP above 160;DBP above 90 03/05/25 21:00 04/04/25 20:59 Lactulose (Constulose 20gm/ 30ml Udcup) 20 gm BID PRN PO CONSTIPATION 03/05/25 21:00 04/04/25 20:59 Methylprednisolone Sodium Succinate (Solu-medROL 40MG) 40 mg Q8H IVP 03/06/25 03:30 04/05/25 03:29 03/06/25 11:37 40 MG Morphine Sulfate (morPHINE 2MG SYG) 2 mg Q4H PRN IVP SEVERE PAIN (7-10) 03/05/25 21:30 03/12/25 21:29 Nicardipine HCl 25 mg/Sodium Chloride 250 ml @ 0 mls/hr PROTOCOL IV 03/05/25 21:00 04/04/25 20:59 03/06/25 06:39 50 MLS/HR Ondansetron HCl (zoFRAN 4MG INJ) 4 mg Q6H PRN IV NAUSEA/VOMITING 03/05/25 21:00 04/04/25 20:59 Pantoprazole Sodium (PROTonix 40MG INJ) 40 mg DAILY IV 03/06/25 09:00 04/05/25 08:59 03/06/25 09:05 40 MG Piperacillin Sod/ Tazobactam Sod (Zosyn 3.375gm+NS 50ml) 3.375 gm Q12H IV 03/05/25 21:30 03/15/25 21:29 03/06/25 09:07 3.375 GM Sodium Chloride 250 ml @ 0 mls/hr AD IV 03/05/25 23:00 04/04/25 22:59 Sodium Chloride 1,000 ml @ 0 mls/hr ONCE IV 03/05/25 23:00 04/04/25 22:59 03/06/25 02:53 100 MLS/HR LABORATORY: [ ] Hematology Labs: Test 03/09/25 05:45 03/08/25 06:03 Range/Units White Blood Count 12.3 H 4.8-10.8 K/uL Red Blood Count 3.56 L 4.00-5.50 MIL/uL Hemoglobin 10.4 L 12.0-16.0 g/dL Hematocrit 30.5 L 36-48 % Mean Corpuscular Volume 85.7 79-99 fL Mean Corpuscular Hemoglobin 29.2 27.0-33.0 pg Mean Corpuscular Hemoglobin Concent 34.1 32.0-36.0 g/dL Red Cell Distribution Width 16.5 H 11.0-15.5 % Platelet Count 278 130-400 K/uL Mean Platelet Volume 11.8 H 7.5-10.5 fL Nucleated Red Blood Cells 0.0 0.0-0.19 % Segmented Neutrophils % 96 H 40-70 % Lymphocytes % (Manual) 1 L 22-44 % Monocytes % (Manual) 3 2-9 % Differential Comment MANUAL DIFFERENTIAL White Cell Morphology Comment HYPERSEGMENT NEUT 2+ Platelet Morphology Comment ADEQUATE Red Blood Cell Morphology See comments Chemistry Labs: Test 03/09/25 11:30 03/09/25 05:45 03/08/25 06:03 Range/Units Whole Blood Glucose 252 H 70-110 MG/DL Sodium Level 133 L 136-145 mmol/L Potassium Level 4.6 3.5-5.1 mmol/L Chloride Level 92 L 101-111 mmol/L Carbon Dioxide Level 29 21-32 mmol/L Blood Urea Nitrogen 37 #H 7-18 mg/dL Creatinine 4.7 H 0.5-1.0 mg/dL Glomerular Filtration Rate Calc 10 >90 mL/min Random Glucose 204 H 70-105 mg/dL Total Calcium 8.6 8.5-10.1 mg/dL Magnesium Level 2.40 1.80-2.40 mg/dL Phosphorus Level 7.6 H 2.5-4.9 mg/dL DIAGNOSTICS / RADIOLOGY: [address] [address] IMAGING REPORT Signed PATIENT: LEONOR DOMINIQUE MR#: [id number] : 1965 SEX: F AGE: 60 LOCATION: [facility] ORDER 24 STATUS: ADM IN REPORT#: [id number] SERVICE 23 REASON: CHEST PAIN ORDERING PHYSICIAN: ZOEY LEZAMA MD PROCEDURE: CXR1VW - CHEST 1VW EXAM: CR Chest, 1 view CLINICAL HISTORY: Chest pain. COMPARISON: Chest radiograph dated 11/21/2024. FINDINGS: Small to moderate pleural effusions with mid to lower zone airspace disease and pulmonary edema bilaterally. Mild cardiomegaly. No pneumothorax. The right-sided dual-lumen catheter tip overlies the right atrium. No acute osseous abnormality. IMPRESSION: Small to moderate pleural effusions with mid to lower zone airspace disease and pulmonary edema bilaterally. Mild cardiomegaly. The right-sided dual-lumen catheter tip overlies the right atrium. Compared to the prior study, there is no significant interval change. /[place] DICTATED BY: LIZETTE JAY Jr., MD DATE: 03/05/252236 ELECTRONICALLY SIGNED BY: LIZETTE JAY Jr., MD DATE: 03/05/252236 ASSESSMENT: Life-threatening hyperkalemia Fluid overload Acute on chronic renal failure Anemia Hypertensive emergency Acute hypoxemic respiratory failure, recurrent BiPAP Sepsis Leukocytosis Diabetes mellitus type 2 Diabetic nephropathy Noncompliance PLAN: Labs and Diagnostics/ Radiology personally reviewed and interpreted by myself and supervising physician We have reviewed dialysis and external records in detail No dialysis planned for today From Nephrology standpoint, patient may be discharged 1.5 L fluid restriction Monitor blood pressure adjust medication doses as needed Please renally adjust medications. Avoid nephrotoxics and nonsteroidal drugs. We will continue to monitor the patient closely ATTESTATION BY PHYSICIAN I have seen and examined the patient. I reviewed the documentation, medical decision making, and treatment plan as noted by the mid-level provider above. I agree with the findings and plan of care. CORA MORIN MD, [facility] Mar 09, 2025 17:28
== END 2025-03-09 16:30 | disposition home or self-care (01) | DRG 871 ==
LOC: EDH 20:19 → EDHIP 20:20 → 2CH 21:49 → 3DH 03-07 01:08
PROVIDERS: ADMIT Internal Medicine; ATTEND Internal Medicine
PROC: 5A09357 Assistance with Respiratory Ventilation, Less than 24 Consecutive Hours, Continuous Positive Airway Pressure (ICD-10-PCS; 2025-03-05)
PROC: 5A1D70Z Performance of Urinary Filtration, Intermittent, Less than 6 Hours Per Day (ICD-10-PCS; principal; 2025-03-06)
PROC: 5A09357 Assistance with Respiratory Ventilation, Less than 24 Consecutive Hours, Continuous Positive Airway Pressure (ICD-10-PCS; 2025-03-06)
PROC: 5A1D70Z Performance of Urinary Filtration, Intermittent, Less than 6 Hours Per Day (ICD-10-PCS; 2025-03-08)
DX: A41.9 Sepsis, unspecified organism (principal); J96.01 Acute respiratory failure with hypoxia; N18.6 End stage renal disease; I16.1 Hypertensive emergency; I13.2 Hypertensive heart and chronic kidney disease with heart failure and with stage 5 chronic kidney disease, or end stage renal disease; N17.9 Acute kidney failure, unspecified; I31.39 Other pericardial effusion (noninflammatory); E11.22 Type 2 diabetes mellitus with diabetic chronic kidney disease; E87.5 Hyperkalemia; E87.70 Fluid overload, unspecified; I50.9 Heart failure, unspecified; D63.1 Anemia in chronic kidney disease; E78.5 Hyperlipidemia, unspecified; I34.0 Nonrheumatic mitral (valve) insufficiency; I07.1 Rheumatic tricuspid insufficiency; E83.51 Hypocalcemia; E83.41 Hypermagnesemia; E11.65 Type 2 diabetes mellitus with hyperglycemia; Z51.5 Encounter for palliative care; Z79.4 Long term (current) use of insulin; Z99.2 Dependence on renal dialysis; Z91.199 Patient's noncompliance with other medical treatment and regimen due to unspecified reason
CPT/HCPCS: 36415; 36600; 71045; 73560; 73600; 80048; 82435; 82550; 82803; 82947; 82948; 83605; 83735; 83880; 84100; 84132; 84145; 84295; 84484; 85018; 85025; 85027; 86704; 86706; 87040; 87340; 87426; 87641; 87804; 90935; 93005; 93306; 93971; 94640; 94660; 94664; 96374; 96375; 99285; G0378; J0360; J0612; J1644; J1938; J2270; J2405; J2470; J2543; J2919; J3373; J3490; J7050; J7070; J3370